=== PATIENT | female | born 1930 | race Caucasian/White ===

== ENCOUNTER 2018-03-10 18:48 | Inpatient (IN) | payer MEDICARE ==
[~2018-03-10 18:48] MED LIST: ISOVUE-370 76%-LOCM 1 ML ONE
[2018-03-10 19:18] LABS: #Basophils 0.1 thou/uL (0.0-0.2); #Eosinphils 0.2 thou/uL (0.0-0.7); #Lymphocytes 2.4 thou/uL (1.20-3.40); #Monocytes 0.7 thou/uL (0.11-0.59); #Neutrophils 4.9 thou/uL (1.40-6.50); %Basophils 0.9 % (0.0-1.0); %Lymphocytes 28.7 % (21.0-51.0); %Monocytes 8.7 % (0.0-10.0); %Neutrophils 59.7 % (42.0-75.0); Mean Corpuscular HGB CONC 32.3 g/dL (32.0-36.0); Mean Corpuscular Hemoglobin 29.3 pg (27.0-31.0); Mean Corpuscular Volume 90.6 fL (78.0-98.0); Mean Platelet Volume 8.4 fL (7.4-10.4); Platelet Count 261 thou/uL (130-400); RBC Distribution Width 12.9 % (11.5-14.5); Red Blood Cell (RBC) Count 4.11 mill/uL (4.20-5.40); White Blood Cell (WBC) Count 8.2 thou/uL (4.8-10.8)
[2018-03-10 19:31] LABS: Prothrombin Time 13.7 SEC (12.0-14.7)
[2018-03-10 19:35] LABS: ALT (SGPT) 10 U/L (8-55); AST (SGOT) 15 U/L (5-34); Albumin 4.1 g/dL (3.4-4.8); Alkaline Phosphatase 123 U/L (40-150); Anion Gap 12 mmol/L (10-20); BUN (Urea Nitrogen) 23 mg/dL (9.8-20.1); Bilirubin, Total 0.3 mg/dL (0.2-1.2); Calc. Creatinine Clearance 0 mL/min (70-130); Calcium 9.4 mg/dL (7.8-10.44); Carbon Dioxide 30 mmol/L (23-31); Chloride 104 mmol/L (98-107); Estimated GFR-MDRD 27; Globulin 3.3 g/dL (2.4-3.5); Glucose 82 mg/dL (83-110); Lipase 6 U/L (8-78); Protein, Total 7.4 g/dL (6.0-8.3); Sodium 142 mmol/L (136-145)
[2018-03-10 19:39] LABS: CKMB 2.7 ng/mL (0-6.6); Troponin I 0.019 ng/mL (< 0.028)
[2018-03-10 19:41] LABS: CK (CPK) 60 U/L (29-168)
--- NOTE | 2018-03-10 19:59 | CT ---
CT BRAIN WITHOUT CONTRAST: HISTORY: Left-sided weakness and tingling. Last seen normal at 10:00 a.m. COMPARISON: None. FINDINGS: Old right GEOPHYSICAL E LOGGER territory infarction. No acute hemorrhage or infarction. The calcified meningioma is unchanged. No midline shift or mass effect. Dense calcifications of the cavernous carotid arteries. IMPRESSION: Unchanged examination from 2014. No acute intracranial abnormality. CODE CARMITA SAAVEDRA AT 7:17 P.M. POS: BRIANNA
--- NOTE | 2018-03-10 20:30 | CT ---
CTA HEAD WITH IV CONTRAST AND 3D POST PROCESSING: HISTORY: Left-sided weakness. Tingling in the left hand. FINDINGS: Atherosclerotic plaque is seen in the vertebrobasilar and carotid artery systems no either side. A d ominant left vertebral artery is present. No evidence of major branch occlusion, significant stenosi s, or aneurysm formation is seen. There is an old infarction in the right NETWORK CONTROL OPERATOR territory and a meningioma close to the vertex. IMPRESSION: 1. No CT evidence of acute vascular abnormality. 2. No significant interval change is seen in the CTA of the head since 02/09/2014. Discussed over the telephone with the ER physician, Dr. Víctor Kwan, at 8:00 p.m. CODE CARMITA POS: MZA
--- NOTE | 2018-03-10 20:32 | CT ---
CTA NECK WITH IV CONTRAST AND 3D POST PROCESSING: HISTORY: Left-sided weakness. Tingling in the left hand. FINDINGS: Atherosclerotic plaque is seen in the vertebrobasilar and carotid artery systems no either side. A d ominant left vertebral artery is present. No evidence of major branch occlusion, significant stenosi s, or aneurysm formation is seen. There is an old infarction in the right HOME ADVISOR territory and a meningioma close to the vertex. IMPRESSION: 1. No CT evidence of acute vascular abnormality. 2. No significant interval change is seen in the CTA of the head since 02/09/2014. Discussed over the telephone with the ER physician, Dr. Víctor Kwan, at 8:00 p.m. CODE CARMITA POS: MZA
[2018-03-10 20:40] LABS: Bilirubin Negative (Negative); Blood, Urine Negative (Negative); Clarity CLOUDY (Clear); Glucose, Urine (Dipstick) 100 mg/dL (Negative); Leukocyte Large (Negative); Nitrite Positive (Negative); Protein, Urine (Dipstick) 100 mg/dL (Neg-Trace); Specific Gravity, Urine 1.017 (1.002-1.036); Urobilinogen 0.2 mg/dL (0.2-1.0)
--- NOTE | 2018-03-10 20:40 | RAD ---
CHEST ONE VIEW: HISTORY: Chest pain and left hand tingling. COMPARISON: Chest radiograph from 12/24/2016. FINDINGS: The lungs are without focal air space consolidation, pneumothorax, or effusion. There is scarring in the lung bases. Moderate degenerative changes in both glenohumeral joints. Multiple median sternotomy wires are in t he midline. IMPRESSION: Mild cardiomegaly. No acute intrathoracic abnormality. POS: ROGELIO
[2018-03-10 20:42] LABS: Bacteria/HPF Rare-Few HPF (None Seen); Hyaline Casts/LPF 0-3 HYALINE CAST LPF (0-3 Hyaline); RBC/HPF 0-3 HPF (0-3); Squamous Epithelial None Seen HPF (0-3)
[2018-03-10] MEDS ORDERED: cefTRIAXone\\ROCEPHIN 2 GM VIAL ONE (21:37)
[2018-03-11 00:26] VITALS: BMI 27.3
[2018-03-11] MEDS ORDERED: Ondansetron ODT 4 MG TAB SL PRN (00:37)
[2018-03-11] MEDS ORDERED: Ondansetron HCl/PF 4 MG/2 ML Vial IVP PRN ×2 (00:37→08:54)
[2018-03-11] MEDS ORDERED: Acetaminophen 325 MG TAB PO PRN ×2 (00:37→08:53)
[2018-03-11] MEDS ORDERED: Bisacodyl 5 MG TAB PO PRN (08:54)
[2018-03-11] MEDS ORDERED: Loratadine 10 MG TAB PO PRN (08:54)
[2018-03-11] MEDS ORDERED: Senokot 8.6 MG TAB PO PRN (08:54)
[2018-03-11] MEDS ORDERED: Dextrose 50% Abboject 50 ML SYRINGE SLOW IVP PRN (08:54)
[2018-03-11] MEDS ORDERED: Calcium Carbonate 500 MG ChewTAB PO PRN (08:54)
[2018-03-11] MEDS ORDERED: Benzonatate 100 MG CAP PO PRN (08:54)
[2018-03-11] MEDS ORDERED: Nitroglycerin 0.4 MG TAB (25 Tab Bottle) SL PRN (08:54)
[2018-03-11] MEDS ORDERED: HumaLOG 300 UNITS/3 ML VIAL SC PRN (08:54)
[2018-03-11] MEDS ORDERED: Mag-Al 1200 mg/1200 mg/30 ML UDCUP PO PRN (08:54)
[2018-03-11] MEDS ORDERED: Diabetic Tussin 200 MG/10 ML UDCUP PO PRN (08:54)
[2018-03-11] MEDS ORDERED: Dextrose 5% in Water 1,000 ML IV PRN (08:54)
[2018-03-11] MEDS ORDERED: Aspirin 81 mg Enteric Coated Tablet PO SCH (09:00)
[2018-03-11] MEDS ORDERED: Lorazepam 2 MG/ML VIAL ONE (10:36)
[2018-03-11] MEDS ORDERED: Lorazepam 2 MG/ML VIAL SLOW IVP SCH (10:45)
[2018-03-11] MEDS ORDERED: Aspirin 325 MG TAB ONE (10:48)
[2018-03-11] MEDS: Aspirin 325 mg Enteric Coated Tablet PO SCH (10:49)
[2018-03-11] MEDS: HumaLOG 300 UNITS/3 ML VIAL SC PRN ×2 (12:19→16:51)
--- NOTE | 2018-03-11 12:48 | MRI ---
BRAIN MRI NONCONTRAST: COMPARISON: Head CT 03/10/18, 02/20/14 brain MRI. CLINICAL HISTORY: Left side weakness, paresthesias, TIA. FINDINGS: Redemonstration of right occipital encephalomalacia with ex vacuo dilatation of ventricular system. There is parenchymal atrophy. There is no acute intracranial hemorrhagic susceptibility. A prominen t degree of gliosis is seen adjacent cavitary encephalomalacia of the posterior right cerebral hemisp here. There is mild chronic microvascular ischemic disease. No acute territorial infarction. Exam is markedly degraded by patient motion. As was previously mentioned, although some distorted by the degree of patient motion on the current e xam and limited without IV enhancement, there is redemonstration of extraaxial mass along the left as pect of the interhemispheric falx at the level of the vertex, with AP diameter measuring approximatel y 2.5 cm, grossly stable, indicating meningioma. IMPRESSION: 1. Chronic intracranial findings, without acute infarction or mass effect. 2. Stable extraaxial mass along the superior aspect of the interhemispheric falx, favoring meningiom a. POS: BRIANNA
--- NOTE | 2018-03-11 13:17 | HP ---
PRIMARY CARE PHYSICIAN: Ly Kelley CHIEF COMPLAINT: Left arm pain and burning and not feeling well. HISTORY OF PRESENT ILLNESS: Ms. Cabrera is an 87-year-old female with past medical history of diabete s mellitus type 1, hypertension, dyslipidemia, history of stroke in 2013 and coronary artery disease status post CABG many years ago, who presented to the emergency room with the above-mentioned complai nt. History is mainly obtained by the patient herself and electronic medical records have been revie wed. Ms. Cabrera reports that she has been in her usual health up until now. She normally is able to take care of herself and ambulates with the help of a walker. Yesterday all of a sudden she started to no sandrita that she was having significant amount of pain, burning in her left arm and left hand. She did not notice any swelling or any skin color changes. She did not have any chest pain with that, but sh ortiz was "feeling funny" and had shortness of breath with that. She was not able to make a fist because of the pain. She denies similar episodes in the past. She denies similar feeling in her legs. She denies any recent illnesses. She denies any orthopnea or PND. She denies any changes in her vision or speech. When she was brought into the emergency room, her blood pressure was 160/103 with a pulse of 90. She was saturating 97% on room air. Given the history of left arm pain she actually underwent a stroke workup in the emergency room including a CT head as well as a CT angiogram of the head and neck. Bot h were unremarkable. According to the neurological examination per the ER physician she was noticed to have some sensory deficits to the left arm and left hand, otherwise unremarkable neurological exam . EKG showed complete right bundle branch block, but no evidence to suggest ACS. She was also found to have evidence of significant urinary tract infection and renal failure with creatinine of 1.76. She does report that she has been having some abdominal pain for the last few days and has been notic ing burning of the urine. She otherwise has a good appetite and denies any nausea, vomiting or diarr hea. She is somewhat constipated. She is now being admitted for further workup and rule out stroke. PAST MEDICAL HISTORY: 1. Hypertension. 2. Dyslipidemia. 3. History of coronary artery disease status post CABG many years ago. 4. Diabetes mellitus type 1. PAST SURGICAL HISTORY: 1. CABG. 2. Cholecystectomy. ALLERGIES: MORPHINE. SOCIAL HISTORY: She lives with her daughter who is the primary care provider. No history of drug, t obacco or alcohol abuse. FAMILY HISTORY: She denies any family members having any significant heart attack or strokes in the past. MEDICATIONS: Insulin, NovoLog 70/30 15 units b.i.d., Tylenol with codeine #3 as needed, isosorbide m ononitrate 30 mg daily, diltiazem 300 mg daily, aspirin 81 mg daily, hydralazine 25 mg p.o. daily, se rtraline 100 mg daily, and lisinopril 20 mg p.o. b.i.d. REVIEW OF SYSTEMS: A 12-point review of systems was done and is negative except for those mentioned in the history and physical. LABORATORY DATA: CBC is unremarkable. Serum chemistries showed BUN 23, creatinine 1.76 with estimat ed GFR of 27, blood sugar 82 and then 209. Cardiac enzymes are normal. Lipase 6. Urinalysis with l arge leukocyte esterase, WBCs, positive nitrites as well as proteinuria and glucosuria. CT head by my review has no evidence to suggest any acute infarction, hemorrhage or mass effect. CT angio was negative for any significant stenosis. Chest x-ray by my review has no evidence to suggest pleural effusion, edema or infiltrate. Twelve lead EKG by my review shows normal sinus rhythm with right complete bundle branch block. PHYSICAL EXAMINATION: VITAL SIGNS: Most recent vital signs; temperature 97.9, pulse of 58, respirations 16, saturating 96% on room air, blood pressure 156/72. GENERAL: No acute distress, awake, alert, oriented x3. She appears frail, but her stated age. She does appear quite filthy. HEENT: Mucous membrane is moist and pink. No oropharyngeal exudate or erythema. Head is normocepha lic, atraumatic. Pupils equal, reactive to light and accommodation. Extraocular movement intact. NECK: Supple without any lymphadenopathy, JVD or bruit. CHEST: Clear to auscultation without any wheezing, rales or rhonchi. CARDIOVASCULAR: Rhythm is regular without any murmur, rubs or gallops. ABDOMEN: Soft, nondistended. No guarding, rebound or rigidity. She is mildly tender to palpation i n the central area where she has a chronic hernia. EXTREMITIES: Show no limitation of the range of the movement of the left hand. She has intact sensa tion. Jzrtob-sw-gacs testing is intact. Bilateral lower extremities shows significant pitting edema at least +2 with chronic edematous changes in the right lower extremity. NEURO: Neurological examination is rather unremarkable. SKIN: Free of any rashes or bruises. Feels warm and dry to touch. PSYCHIATRIC: Normal affect. IMPRESSION AND PLAN: 1. Left arm pain. The patient's symptoms are more of the pain rather than the paresthesias and soun ds like neuropathic pain. Given her extensive history of coronary artery disease, stroke; however, w ill be ruled out. We will obtain a MRI of the head and carotid Doppler ultrasound. Her first set of cardiac enzymes was negative and we will repeat the cardiac enzymes again and as above once again. At this time, the suspicion of ACS is rather low. She will be started on full dose aspirin and we wi ll add statin until either of these are ruled out. We will also try to maintain her blood pressure a t a higher than average level to maintain cerebral perfusion pressure. 2. Urinary tract infection. Urine culture and blood cultures have been obtained. No evidence of se psis at this time. She has gotten empiric antibiotics in the emergency room. We will continue that for now. 3. Acute renal insufficiency. The patient will be monitored and we will avoid any nephrotoxic medic ations. If her cardiac evaluation including the echocardiogram does not show any evidence of congest nicanor heart failure and if the renal function does not improve with conservative management we will sta rt her on IV fluids. 4. Lower extremity edema. We will rule out deep venous thrombosis with lower extremity Doppler ultr asound. 5. Hypertension. Resume home medications selectively. We will hold her hydrochlorothiazide and lis inopril to avoid renal toxicity. 6. Diabetes mellitus type 1. We will put her on insulin sliding scale and resume her 70/30 as well. Accu-Cheks a.c. and at bedtime. 7. Code status: FULL CODE. Discussed with the patient in detail. 8. Deep venous thrombosis and gastrointestinal prophylaxis and p.r.n. medication orders. DISPOSITION: Ms. Cabrera is currently admitted to the hospital to rule out CVA and ACS. Estimated le ngth of stay is at least 2-3 midnight given the presence of urinary tract infection and acute renal i nsufficiency as well. Further management will depend upon her clinical course.
[2018-03-11 14:53] LABS: Troponin I 0.028 ng/mL (< 0.028)
[2018-03-11] MEDS: Sodium Chloride 0.9% 1,000 ML IV SCH (16:13)
--- NOTE | 2018-03-11 16:13 | ULT ---
VENOUS DUPLEX SONOGRAM BILATERAL LOWER EXTREMITY: History: Bilateral leg pain and edema. FINDINGS: Minimal spectral and doppler flow are present within each common femoral vein. Clot is present within each common femoral vein and greater saphenous junction as well as femoral, deep, popliteal, and pos terior tibial vein. There is decreased flow throughout. IMPRESSION: Extensive nonocclusive thrombus throughout the deep venous structures of each lower extremity. Findings were discussed with Dr. Rivera at 1555 hours. Code CR POS: BRIANNA
[2018-03-11] MEDS ORDERED: cefTRIAXone\\ROCEPHIN 1 GM in Sodium Chloride 0.9% 100 ML IVPB SCH (21:00)
[2018-03-11] MEDS: Famotidine 20 MG TAB PO SCH (21:48)
[2018-03-11] MEDS: Atorvastatin Calcium 20 MG TAB PO SCH (21:48)
[2018-03-11] MEDS: Enoxaparin Sodium 80 MG/0.8 ML SYRINGE SC SCH (21:55)
[2018-03-11] MEDS: Insulin NPH/Reg Insulin Hm 300 UNITS/3 ML VIAL SC SCH (22:18)
[2018-03-11] MEDS: hydrALAZINE 20 MG/ML VIAL SLOW IVP PRN (23:36)
[2018-03-12] MEDS: Acetaminophen 325 MG TAB PO PRN ×3 (05:32→21:53)
[2018-03-12 06:02] LABS: #Basophils 0.1 thou/uL (0.0-0.2); #Eosinphils 0.2 thou/uL (0.0-0.7); #Lymphocytes 2.3 thou/uL (1.20-3.40); #Monocytes 0.5 thou/uL (0.11-0.59); #Neutrophils 2.9 thou/uL (1.40-6.50); %Basophils 1.1 % (0.0-1.0); %Eosinophils 3.1 % (0.0-10.0); %Lymphocytes 38.5 % (21.0-51.0); %Monocytes 8.9 % (0.0-10.0); %Neutrophils 48.3 % (42.0-75.0); Hemoglobin 11.5 g/dL (12.0-16.0); Mean Corpuscular HGB CONC 32.9 g/dL (32.0-36.0); Mean Corpuscular Hemoglobin 29.6 pg (27.0-31.0); Mean Platelet Volume 8.3 fL (7.4-10.4); Platelet Count 221 thou/uL (130-400); RBC Distribution Width 12.9 % (11.5-14.5); Red Blood Cell (RBC) Count 3.87 mill/uL (4.20-5.40); White Blood Cell (WBC) Count 6.1 thou/uL (4.8-10.8)
[2018-03-12 06:32] LABS: Anion Gap 10 mmol/L (10-20); BUN (Urea Nitrogen) 19 mg/dL (9.8-20.1); Calc. Creatinine Clearance 37 mL/min (70-130); Calcium 8.9 mg/dL (7.8-10.44); Carbon Dioxide 29 mmol/L (23-31); Chloride 107 mmol/L (98-107); Estimated GFR-MDRD 42; Sodium 142 mmol/L (136-145)
[2018-03-12 06:33] LABS: Cardiac Risk 3.1 (Less than 4.5)
[2018-03-12 06:35] LABS: Glucose 54 mg/dL (83-110)
[2018-03-12] MEDS ORDERED: Enoxaparin Sodium 30 MG/0.3 ML SYRINGE SC SCH (09:00)
[2018-03-12] MEDS: Aspirin 325 mg Enteric Coated Tablet PO SCH (09:40)
[2018-03-12] MEDS: Diltiazem HCl CD 300 mg Capsule PO SCH (09:41)
[2018-03-12] MEDS: Enoxaparin Sodium 80 MG/0.8 ML SYRINGE SC SCH (09:41)
[2018-03-12] MEDS: hydrALAZINE 25 MG TAB PO SCH ×3 (09:41→21:36)
[2018-03-12] MEDS: Lisinopril 20 MG TAB PO SCH ×2 (09:42→21:36)
[2018-03-12] MEDS: Sodium Chloride 0.9% 1,000 ML IV SCH (12:25)
--- NOTE | 2018-03-12 13:29 | ULT ---
VENOUS DOPPLER ULTRASOUND OF THE LEFT UPPER EXTREMITY: Date: 03/12/18 HISTORY: Left arm pain. TECHNIQUE: Tillman scale ultrasound with color flow and spectral Doppler imaging of the deep venous systems of the left upper extremity is performed. FINDINGS: There is good flow, compression, and spectral waveforms in the deep veins of the left upper extremity , including the internal jugular, subclavian, axillary, brachial, radial, ulnar, basilic, and cephali c veins. IMPRESSION: No evidence of deep venous thrombosis in the left upper extremity. POS: BRIANNA
[2018-03-12] MEDS: Insulin NPH/Reg Insulin Hm 300 UNITS/3 ML VIAL SC SCH ×2 (13:33→21:50)
--- NOTE | 2018-03-12 13:50 | PDOC.PN ---
- Subjective Encounter Start Date: 03/12/18 Encounter Start Time: 13:48 Subjective: feels a little better .left arm pain better but still there -: c/o vision loss but has it for 4 years. -: no abd pain/N/V/D.no CP/SOB - Objective Resuscitation Status: Resuscitation Status FULL:Full Resuscitation MAR Reviewed: Yes Vital Signs & Weight: Vital Signs (12 hours) Temp Pulse Pulse Pulse Resp BP BP 03/12/18 12:00 99 F 72 20 03/12/18 10:00 89 81 205/129 H 03/12/18 09:42 193/86 H 03/12/18 09:41 79 193/86 H 03/12/18 08:08 77 193/86 H 03/12/18 08:00 98.3 F 79 18 03/12/18 04:00 98.3 F 84 18 BP BP Pulse Ox 03/12/18 12:00 179/81 H 99 03/12/18 10:00 190/85 H 03/12/18 09:42 03/12/18 09:41 03/12/18 08:08 03/12/18 08:00 178/80 H 99 03/12/18 04:00 173/76 H 99 Weight Admit Weight 154 lb 3 oz Weight 154 lb 3 oz Result Diagrams: 03/12/18 05:01 03/12/18 05:01 Additional Labs: Accuchecks 03/12/18 03/12/18 03/11/18 06:55 05:40 23:26 POC Glucose 79 71 234 H 03/11/18 03/11/18 03/11/18 20:30 16:45 12:12 POC Glucose 291 H 183 H 290 H Microbiology 03/10/18 20:32 Urine Straight Catheter Urine Culture - Preliminary Escherichia coli 03/10/18 20:17 Venous blood - Left Arm Blood Culture - Preliminary Specimen has been received and culture in progress. No Growth to date. 03/10/18 20:17 Venous blood - Left Arm Blood Culture - Preliminary NO GROWTH AT 48 HOURS 03/10/18 19:04 Venous blood - Right Arm Blood Culture - Preliminary Specimen has been received and culture in progress. No Growth to date. 03/10/18 19:04 Venous blood - Right Arm Blood Culture - Preliminary NO GROWTH AT 48 HOURS Laboratory Tests 12/10/16 12/14/16 03/10/18 13:09 14:08 19:04 Creatinine 1.08 1.25 H 1.76 H 03/12/18 05:01 Creatinine 1.21 H labs reviewed Radiology Reviewed by me: Yes (Doppler L UE-no DVT) Phys Exam - Physical Examination Constitutional: NAD blind HEENT: PERRLA, moist MMs, sclera anicteric, oral pharynx no lesions Neck: no nodes, no JVD, supple, full ROM Respiratory: no wheezing, no rales, no rhonchi, clear to auscultation bilateral Cardiovascular: RRR, no significant murmur, no rub Gastrointestinal: soft, non-tender, no distention, positive bowel sounds Musculoskeletal: pulses present, edema present (b/l legs) Neurological: non-focal, normal sensation, moves all 4 limbs Psychiatric: normal affect, A&O x 3 Skin: no rash Dx/Plan (1) DVT of lower extremity, bilateral Code(s): I82.403 - ACUTE EMBOLISM AND THOMBOS UNSP DEEP VEINS OF LOW EXTRM, BI Status: Acute Qualifiers: Chronicity: acute (2) UTI (urinary tract infection) Status: Acute (3) HEATHER (acute kidney injury) Code(s): N17.9 - ACUTE KIDNEY FAILURE, UNSPECIFIED Status: Acute (4) Left arm pain Code(s): M79.602 - PAIN IN LEFT ARM Status: Acute (5) Hypertension, uncontrolled Code(s): I10 - ESSENTIAL (PRIMARY) HYPERTENSION Status: Acute (6) Muscular deconditioning Code(s): R29.898 - OTH SYMPTOMS AND SIGNS INVOLVING THE MUSCULOSKELETAL SYSTEM Status: Acute (7) Vision loss Code(s): H54.7 - UNSPECIFIED VISUAL LOSS Status: Acute (8) Meningioma Code(s): D32.9 - BENIGN NEOPLASM OF MENINGES, UNSPECIFIED Status: Chronic Comment: Stable since 2013 (9) CAD (coronary artery disease) Code(s): I25.10 - ATHSCL HEART DISEASE OF [place] CORONARY ARTERY W/O ANG PCTRS Status: Chronic (10) DM type 1 (diabetes mellitus, type 1) Status: Chronic Comment: Cont ISS and Home insulin.Accuchecks achs (11) HLD (hyperlipidemia) Code(s): E78.5 - HYPERLIPIDEMIA, UNSPECIFIED Status: Acute - Plan continue antibiotics, PT/OT, respiratory therapy, incentive spirometry, out of bed/ambulate, DVT proph w/SCDs change ABx to levaquin which has better sensitivity profile for e.coli -: Renal Fx improving. cont to monitor. gentle IVF -: Change Lovenox to eliquis.risk/benefits discussed w pt in detail.agreeable -: BP uncontrolled-restart Home meds as CVA ruled out -: rehab eval. * . Review of Systems - Review of Systems Constitutional: weakness. negative: fever, chills, sweats, malaise, other Respiratory: negative: Cough, Dry, Shortness of Breath, Hemoptysis, SOB with Excertion, Pleuritic Pain, Sputum, Wheezing Cardiovascular: negative: chest pain, palpitations, orthopnea, paroxysmal nocturnal dyspnea, edema, light headedness, other Gastrointestinal: negative: Nausea, Vomiting, Abdominal Pain, Diarrhea, Constipation, Melena, Hematochezia, Other Genitourinary: negative: Dysuria, Frequency, Incontinence, Hematuria, Retention , Other Musculoskeletal: Hand Pain. negative: Neck Pain, Shoulder Pain, Arm Pain, Back Pain, Leg Pain, Foot Pain, Other Neurological: negative: Weakness, Numbness, Incoordination, Change in Speech, Confusion, Seizures, Other - Medications/Allergies Allergies/Adverse Reactions: Allergies Allergy/AdvReac Type Severity Reaction Status Date / Time morphine Allergy Verified 03/11/18 00:42 Medications: Current Medications Acetaminophen (Tylenol) 650 mg PO Q6H PRN PRN Reason: Fever > 101 Acetaminophen (Tylenol) 650 mg PO Q4H PRN PRN Reason: Headache/Fever or Pain Last Admin: 03/12/18 12:24 Dose: 650 mg Al Hydroxide/Mg Hydroxide (Maalox) 30 ml PO Q6H PRN PRN Reason: Heartburn or Indigestion Apixaban (Eliquis) 5 mg PO BID [facility] Aspirin (Ecotrin) 325 mg PO DAILY [facility] Last Admin: 03/12/18 09:40 Dose: 325 mg Atorvastatin Calcium (Lipitor) 20 mg PO HS [facility] Last Admin: 03/11/18 21:48 Dose: 20 mg Benzonatate (Tessalon) 100 mg PO Q4H PRN PRN Reason: Cough Bisacodyl (Dulcolax) 10 mg PO DAILYPRN PRN PRN Reason: Constipation Calcium Carbonate (Tums) 1,000 mg PO Q4H PRN PRN Reason: Heartburn or Indigestion Dextrose/Water (Dextrose 50%) 25 gm SLOW IVP PRN PRN PRN Reason: Hypoglycemia Diltiazem HCl (Cardizem Cd) 300 mg PO DAILY [facility] Last Admin: 03/12/18 09:41 Dose: 300 mg Famotidine (Pepcid) 20 mg PO 2100 [facility] Last Admin: 03/11/18 21:48 Dose: 20 mg Glucagon (Glucagon) 1 mg IM PRN PRN PRN Reason: Hypoglycemia Guaifenesin (Robitussin Sf) 200 mg PO Q4H PRN PRN Reason: Cough Hydralazine HCl (Apresoline) 10 mg SLOW IVP Q4H PRN PRN Reason: Systolic BP > 180 Last Admin: 03/11/18 23:36 Dose: 10 mg Hydralazine HCl (Apresoline) 25 mg PO TID [facility] Last Admin: 03/12/18 09:41 Dose: 25 mg Dextrose/Water (D5w) 1,000 mls @ 0 mls/hr IV .Q0M PRN; As Directed PRN Reason: Hypoglycemia Sodium Chloride (Normal Saline 0.9%) 1,000 mls @ 50 mls/hr IV .Q20H [facility] Last Admin: 03/12/18 12:25 Dose: 1,000 mls Levofloxacin 500 mg/ Device 100 mls @ 100 mls/hr IVPB Q24HR [facility] Insulin Human Isoph/Insulin Regular (Humulin 70/30) 15 units SC BID [facility] Last Admin: 03/12/18 13:33 Dose: 15 units Insulin Human Lispro (Humalog) 0 units SC .MODERATE SLIDING SC PRN PRN Reason: Moderate Correctional Scale Last Admin: 03/11/18 16:51 Dose: 2 units Insulin Human Lispro (Humalog) 0 units SC .BEDTIME SLIDING SC PRN PRN Reason: Bedtime Correctional Scale Last Admin: 03/12/18 01:07 Dose: 2 unit Isosorbide Mononitrate (Imdur Er) 30 mg PO DAILY [facility] Last Admin: 03/12/18 09:41 Dose: 30 mg Lisinopril (Zestril) 20 mg PO BID [facility] Last Admin: 03/12/18 09:42 Dose: 20 mg Loratadine (Claritin) 10 mg PO DAILYPRN PRN PRN Reason: Sinus Symptoms Nitroglycerin (Nitrostat) 0.4 mg SL Q5MIN PRN PRN Reason: Chest Pain Ondansetron HCl (Zofran) 4 mg IVP Q6H PRN PRN Reason: Nausea/Vomiting Senna (Senokot) 2 tab PO HSPRN PRN PRN Reason: Constipation Sertraline HCl (Zoloft) 100 mg PO DAILY [facility] Last Admin: 03/12/18 09:42 Dose: 100 mg Sodium Chloride (Flush - Normal Saline) 10 ml IVF Q12HR [facility] Last Admin: 03/12/18 09:42 Dose: 10 ml Sodium Chloride (Flush - Normal Saline) 10 ml IVF PRN PRN PRN Reason: Saline Flush
[2018-03-12] MEDS: traMADol HCl 50 MG TAB PO PRN (14:36)
[2018-03-12] MEDS: Famotidine 20 MG TAB PO SCH (21:37)
[2018-03-12] MEDS: Apixaban 5 MG TAB PO SCH (21:37)
[2018-03-12] MEDS: Atorvastatin Calcium 20 MG TAB PO SCH (21:37)
[2018-03-13 05:17] LABS: Hemoglobin 10.3 g/dL (12.0-16.0)
[2018-03-13 05:37] LABS: Anion Gap 10 mmol/L (10-20); BUN (Urea Nitrogen) 17 mg/dL (9.8-20.1); Calc. Creatinine Clearance 37 mL/min (70-130); Calcium 8.5 mg/dL (7.8-10.44); Carbon Dioxide 28 mmol/L (23-31); Chloride 106 mmol/L (98-107); Estimated GFR-MDRD 42; Glucose 111 mg/dL (83-110); Potassium 4.4 mmol/L (3.5-5.1); Sodium 140 mmol/L (136-145)
[2018-03-13] MEDS: Aspirin 81 mg Enteric Coated Tablet PO SCH (09:06)
[2018-03-13] MEDS: Apixaban 5 MG TAB PO SCH ×2 (09:06→22:24)
[2018-03-13] MEDS: Diltiazem HCl CD 300 mg Capsule PO SCH (09:07)
[2018-03-13] MEDS: hydrALAZINE 25 MG TAB PO SCH ×3 (09:08→22:23)
[2018-03-13] MEDS: Lisinopril 20 MG TAB PO SCH ×2 (09:09→22:23)
[2018-03-13] MEDS: traMADol HCl 50 MG TAB PO PRN (09:10)
[2018-03-13] MEDS: Sodium Chloride 0.9% 1,000 ML IV SCH (09:12)
[2018-03-13] MEDS: Insulin NPH/Reg Insulin Hm 300 UNITS/3 ML VIAL SC SCH (14:12)
--- NOTE | 2018-03-13 14:19 | PDOC.PN ---
- Subjective Encounter Start Date: 03/13/18 Encounter Start Time: 14:18 Subjective: feels much better. says that her legs hurt.swelling better -: denies any CP/SOB - Objective Resuscitation Status: Resuscitation Status FULL:Full Resuscitation MAR Reviewed: Yes Vital Signs & Weight: Vital Signs (12 hours) Temp Pulse Resp BP BP BP Pulse Ox 03/13/18 11:06 187/76 H 03/13/18 09:09 165/72 H 03/13/18 09:08 67 165/72 H 03/13/18 09:07 67 165/72 H 03/13/18 08:00 98.9 F 67 16 165/72 H 97 03/13/18 04:03 98.2 F 65 16 169/74 H 97 Weight Admit Weight 154 lb 3 oz Weight 154 lb 3 oz Result Diagrams: 03/13/18 04:47 03/13/18 04:47 Additional Labs: Accuchecks 03/13/18 03/13/18 03/12/18 11:14 04:08 21:44 POC Glucose 219 H 109 126 H 03/12/18 03/12/18 16:38 13:02 POC Glucose 208 H 235 H Laboratory Tests 03/10/18 03/12/18 03/13/18 19:04 05:01 04:47 Creatinine 1.76 H 1.21 H 1.22 H labs reviewed Phys Exam - Physical Examination Constitutional: NAD HEENT: PERRLA, moist MMs, sclera anicteric, oral pharynx no lesions Neck: no nodes, no JVD, supple, full ROM Respiratory: no wheezing, no rales, no rhonchi, clear to auscultation bilateral Cardiovascular: RRR, no significant murmur, no rub Gastrointestinal: soft, non-tender, no distention, positive bowel sounds Musculoskeletal: no edema, pulses present Neurological: non-focal, normal sensation, moves all 4 limbs chronic blindness Psychiatric: normal affect, A&O x 3 Skin: no rash Dx/Plan (1) DVT of lower extremity, bilateral Code(s): I82.403 - ACUTE EMBOLISM AND THOMBOS UNSP DEEP VEINS OF LOW EXTRM, BI Status: Acute Qualifiers: Chronicity: acute (2) UTI (urinary tract infection) Status: Acute (3) HEATHER (acute kidney injury) Code(s): N17.9 - ACUTE KIDNEY FAILURE, UNSPECIFIED Status: Acute Comment: improving (4) Left arm pain Code(s): M79.602 - PAIN IN LEFT ARM Status: Resolved (5) Hypertension, uncontrolled Code(s): I10 - ESSENTIAL (PRIMARY) HYPERTENSION Status: Resolved (6) Muscular deconditioning Code(s): R29.898 - OTH SYMPTOMS AND SIGNS INVOLVING THE MUSCULOSKELETAL SYSTEM Status: Acute (7) Vision loss Code(s): H54.7 - UNSPECIFIED VISUAL LOSS Status: Acute (8) Meningioma Code(s): D32.9 - BENIGN NEOPLASM OF MENINGES, UNSPECIFIED Status: Chronic Comment: Stable since 2013 (9) CAD (coronary artery disease) Code(s): I25.10 - ATHSCL HEART DISEASE OF [place] CORONARY ARTERY W/O ANG PCTRS Status: Chronic (10) DM type 1 (diabetes mellitus, type 1) Status: Chronic Comment: Cont ISS and Home insulin.Accuchecks achs (11) HLD (hyperlipidemia) Code(s): E78.5 - HYPERLIPIDEMIA, UNSPECIFIED Status: Acute - Plan continue antibiotics, PT/OT, respiratory therapy, incentive spirometry, out of bed/ambulate, DVT proph w/SCDs renal Fx improving.cont gentle IVF. -: cont levaquin .urine with E.Coli sensitive for Levaquin -: PO to DC to rehab when arranged. -: moniroe H/H.stable for now.cont Eliquis for DVT -: pt agreeable for snf use * . Review of Systems - Review of Systems Constitutional: negative: fever, chills, sweats, weakness, malaise, other ENT: negative: Ear Pain, Ear Discharge, Nose Pain, Nose Discharge, Nose Congestion, Mouth Pain, Mouth Swelling, Throat Pain, Throat Swelling, Other Respiratory: negative: Cough, Dry, Shortness of Breath, Hemoptysis, SOB with Excertion, Pleuritic Pain, Sputum, Wheezing Cardiovascular: negative: chest pain, palpitations, orthopnea, paroxysmal nocturnal dyspnea, edema, light headedness, other Gastrointestinal: negative: Nausea, Vomiting, Abdominal Pain, Diarrhea, Constipation, Melena, Hematochezia, Other Genitourinary: negative: Dysuria, Frequency, Incontinence, Hematuria, Retention , Other Musculoskeletal: negative: Neck Pain, Shoulder Pain, Arm Pain, Back Pain, Hand Pain, Leg Pain, Foot Pain, Other Skin: negative: Rash, Lesions, Philippe, Bruising, Other Neurological: negative: Weakness, Numbness, Incoordination, Change in Speech, Confusion, Seizures, Other - Medications/Allergies Allergies/Adverse Reactions: Allergies Allergy/AdvReac Type Severity Reaction Status Date / Time morphine Allergy Verified 03/11/18 00:42 Medications: Current Medications Acetaminophen (Tylenol) 650 mg PO Q6H PRN PRN Reason: Fever > 101 Acetaminophen (Tylenol) 650 mg PO Q4H PRN PRN Reason: Headache/Fever or Pain Last Admin: 03/12/18 21:53 Dose: 650 mg Al Hydroxide/Mg Hydroxide (Maalox) 30 ml PO Q6H PRN PRN Reason: Heartburn or Indigestion Apixaban (Eliquis) 5 mg PO BID [facility] Last Admin: 03/13/18 09:06 Dose: 5 mg Aspirin (Ecotrin) 81 mg PO DAILY [facility] Last Admin: 03/13/18 09:06 Dose: 81 mg Atorvastatin Calcium (Lipitor) 20 mg PO HS [facility] Last Admin: 03/12/18 21:37 Dose: 20 mg Benzonatate (Tessalon) 100 mg PO Q4H PRN PRN Reason: Cough Bisacodyl (Dulcolax) 10 mg PO DAILYPRN PRN PRN Reason: Constipation Calcium Carbonate (Tums) 1,000 mg PO Q4H PRN PRN Reason: Heartburn or Indigestion Dextrose/Water (Dextrose 50%) 25 gm SLOW IVP PRN PRN PRN Reason: Hypoglycemia Diltiazem HCl (Cardizem Cd) 300 mg PO DAILY [facility] Last Admin: 03/13/18 09:07 Dose: 300 mg Famotidine (Pepcid) 20 mg PO 2100 [facility] Last Admin: 03/12/18 21:37 Dose: 20 mg Glucagon (Glucagon) 1 mg IM PRN PRN PRN Reason: Hypoglycemia Guaifenesin (Robitussin Sf) 200 mg PO Q4H PRN PRN Reason: Cough Hydralazine HCl (Apresoline) 10 mg SLOW IVP Q4H PRN PRN Reason: Systolic BP > 180 Last Admin: 03/11/18 23:36 Dose: 10 mg Hydralazine HCl (Apresoline) 25 mg PO TID [facility] Last Admin: 03/13/18 09:08 Dose: 25 mg Dextrose/Water (D5w) 1,000 mls @ 0 mls/hr IV .Q0M PRN; As Directed PRN Reason: Hypoglycemia Sodium Chloride (Normal Saline 0.9%) 1,000 mls @ 50 mls/hr IV .Q20H [facility] Last Admin: 03/13/18 09:12 Dose: 1,000 mls Levofloxacin 500 mg/ Device 100 mls @ 100 mls/hr IVPB Q24HR [facility] Last Admin: 03/12/18 14:35 Dose: 100 mls Insulin Human Isoph/Insulin Regular (Humulin 70/30) 15 units SC BID [facility] Last Admin: 03/12/18 21:50 Dose: Not Given Insulin Human Lispro (Humalog) 0 units SC .MODERATE SLIDING SC PRN PRN Reason: Moderate Correctional Scale Last Admin: 03/11/18 16:51 Dose: 2 units Insulin Human Lispro (Humalog) 0 units SC .BEDTIME SLIDING SC PRN PRN Reason: Bedtime Correctional Scale Last Admin: 03/12/18 01:07 Dose: 2 unit Isosorbide Mononitrate (Imdur Er) 30 mg PO DAILY [facility] Last Admin: 03/13/18 09:08 Dose: 30 mg Lisinopril (Zestril) 20 mg PO BID [facility] Last Admin: 03/13/18 09:09 Dose: 20 mg Loratadine (Claritin) 10 mg PO DAILYPRN PRN PRN Reason: Sinus Symptoms Nitroglycerin (Nitrostat) 0.4 mg SL Q5MIN PRN PRN Reason: Chest Pain Ondansetron HCl (Zofran) 4 mg IVP Q6H PRN PRN Reason: Nausea/Vomiting Senna (Senokot) 2 tab PO HSPRN PRN PRN Reason: Constipation Sertraline HCl (Zoloft) 100 mg PO DAILY [facility] Last Admin: 03/13/18 09:09 Dose: 100 mg Sodium Chloride (Flush - Normal Saline) 10 ml IVF Q12HR [facility] Last Admin: 03/13/18 09:12 Dose: Not Given Sodium Chloride (Flush - Normal Saline) 10 ml IVF PRN PRN PRN Reason: Saline Flush Tramadol HCl (Ultram) 50 mg PO Q6H PRN PRN Reason: Pain Last Admin: 03/13/18 09:10 Dose: 50 mg
--- NOTE | 2018-03-13 14:43 | CT ---
CTA HEAD WITH IV CONTRAST AND 3D POST PROCESSING: CTA NECK WITH IV CONTRAST AND 3D POST PROCESSING: HISTORY: Left-sided weakness. Tingling in the left hand. FINDINGS: Atherosclerotic plaque is seen in the vertebrobasilar and carotid artery systems no either side. A d ominant left vertebral artery is present. No evidence of major branch occlusion, significant stenosi s, or aneurysm formation is seen. 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 IMPRESSION: 1. No CT evidence of acute vascular abnormality. 2. No significant interval change is seen in the CTA of the head since 02/09/2014. Discussed over the telephone with the ER physician, Dr. Víctor Kwan, at 8:00 p.m. REGULO VIZCARRA
[2018-03-13] MEDS: Atorvastatin Calcium 20 MG TAB PO SCH (22:23)
[2018-03-13] MEDS: Famotidine 20 MG TAB PO SCH (22:23)
[2018-03-14] MEDS: Insulin NPH/Reg Insulin Hm 300 UNITS/3 ML VIAL SC SCH ×2 (01:53→10:29)
[2018-03-14] MEDS: hydrALAZINE 20 MG/ML VIAL SLOW IVP PRN (04:23)
[2018-03-14] MEDS: Acetaminophen 325 MG TAB PO PRN (04:32)
[2018-03-14] MEDS: Sodium Chloride 0.9% 1,000 ML IV SCH (04:32)
[2018-03-14 05:12] LABS: Hemoglobin 11.2 g/dL (12.0-16.0)
[2018-03-14 05:32] LABS: Anion Gap 11 mmol/L (10-20); BUN (Urea Nitrogen) 19 mg/dL (9.8-20.1); Calc. Creatinine Clearance 33 mL/min (70-130); Calcium 9.2 mg/dL (7.8-10.44); Carbon Dioxide 27 mmol/L (23-31); Chloride 107 mmol/L (98-107); Estimated GFR-MDRD 38; Glucose 168 mg/dL (83-110); Potassium 4.4 mmol/L (3.5-5.1); Sodium 141 mmol/L (136-145)
[2018-03-14] MEDS: HumaLOG 300 UNITS/3 ML VIAL SC PRN (07:36)
[2018-03-14] MEDS ORDERED: hydrALAZINE 25 MG TAB PO SCH (09:00)
--- NOTE | 2018-03-14 09:49 | RAD ---
CHEST 1 VIEW: Date: 03/14/18 HISTORY: Pulmonary edema. COMPARISON: Radiograph dated 03/10/18. FINDINGS: Heart size upper limits of normal. No focal air space consolidation or pneumothorax. There is mild b lunting of right lateral costophrenic sulcus. Dense calcifications at transverse aorta. There is calcific tendinosis right rotator cuff. IMPRESSION: 1. Mild blunting bilateral costophrenic sulcus may reflect small effusion. 2. Cardiac silhouette upper limits of normal. POS: [facility]
[2018-03-14] MEDS: Lisinopril 20 MG TAB PO SCH (10:19)
[2018-03-14] MEDS: Apixaban 5 MG TAB PO SCH (10:19)
[2018-03-14] MEDS: Aspirin 81 mg Enteric Coated Tablet PO SCH (10:20)
[2018-03-14] MEDS: Diltiazem HCl CD 300 mg Capsule PO SCH (10:20)
[2018-03-14 11:32] VITALS: BP 166/72; TEMP 98.5
--- NOTE | 2018-03-15 02:33 | DIS ---
DATE OF ADMISSION: 03/11/2018 DATE OF DISCHARGE: 03/14/2018 PRIMARY CARE PHYSICIAN: Matt Obregon. DISCHARGE DISPOSITION: Rehabilitation at [facility]. DISCHARGE DIAGNOSES: 1. Lower extremity deep venous thrombosis, bilateral. 2. Urinary tract infection. 3. Acute kidney injury. 4. Left arm pain, likely arthritis. 5. Hypertension. 6. Muscle deconditioning. 7. Chronic blindness. 8. Chronic meningioma. 9. Coronary artery disease. 10. Diabetes mellitus, type 1. 11. Dyslipidemia. DISCHARGE MEDICATIONS: As follows: Eliquis 5 mg p.o. b.i.d., Lipitor 20 mg daily, Tessalon Perles a s needed, Tums as needed, levofloxacin 500 mg daily, loratadine as needed, Florastor 250 mg daily, hy dralazine 50 mg p.o. t.i.d., lisinopril 20 mg p.o. b.i.d., sertraline 100 mg daily, aspirin 81 mg yue ly, diltiazem 300 mg daily, isosorbide mononitrate 30 mg daily, Tylenol with codeine as needed, NovoL og 70/30 of 15 units b.i.d., Tylenol as needed. PROCEDURES DONE IN THE HOSPITAL: 1. CT angiogram of the head and neck upon presentation, which has no vascular abnormality. 2. CT scan of the brain, which is negative for any acute infarction or mass or hemorrhage. 3. MRI of the brain, which did not show any acute infarction. Chronic intracranial changes seen. 4. Lower extremity ultrasound, which is positive for bilateral extensive nonocclusive thrombus throu ghout the deep venous structures of each lower extremity and vascular ultrasound of the left arm whic h is negative for any DVT. 5. Transthoracic echocardiogram, which shows preserved EF of 60% to 65% and grade 2/3 diastolic dysf unction. 6. Chest x-ray prior to discharge, which is negative for any pulmonary edema. HISTORY OF PRESENTING ILLNESS: Ms. Cabrera is an 87-year-old female with past medical history of hype rtension and dyslipidemia as well as coronary artery disease and diabetes, [facility] of left arm pain and burning and not feeling well. Upon presentation, she was hemodynamically stable. A CT angiogram of the head and neck as well as CT of the brain and chest x-ray was done which was unremarkable. A 12-lead EKG was normal. Cardiac enzymes were normal. She was admitted for further evaluation and care. She was found to have a urinary tract infection for w hich she was started on empiric IV antibiotics. Please see admission history and physical for furthe r detail. HOSPITAL COURSE: The patient underwent a thorough workup as above and all of it was negative for CVA . Left arm ultrasound was also done after she was found to have lower extremity DVT bilaterally give n her swelling. She was started on anticoagulation initially with Lovenox and then transitioning to Eliquis after discussion with the patient. She understood the risk and benefit and chose to undergo full anticoagulation. She will need anticoagulation at least for 3-6 months. She was treated with I V antibiotics which were eventually changed to oral antibiotic based on the urine culture and sensiti vity. She had E. coli which was resistant to cefoxitin and ampicillin and intermediate sensitivity t o Rocephin. Discharge was discussed with her and she expressed desire to go to the rehab, which was arranged for her. She was hemodynamically stable and was discharged for rehabilitation earlier today. She was se en and examined prior to discharge. PHYSICAL EXAMINATION: VITAL SIGNS: This morning, temperature 98.5, pulse of 60, respirations 16, saturating 96% on room ai r, blood pressure 166/72. GENERAL: No acute distress, awake, alert, oriented x3. CHEST: Clear to auscultation without any wheezing, rales or rhonchi. CARDIOVASCULAR: Rhythm is regular without any murmur, rubs or gallops. LABORATORY DATA: Hemoglobin 11.2, hematocrit 34.3. Serum chemistries: Creatinine 1.34 with baselin e around 1.2, INR 1.0. Total time spent in the discharge 32 minutes.
== END 2018-03-14 14:13 | DRG 300 ==
LOC: ERS 18:48 → 2SE 21:35
PROVIDERS: ADMIT Internal Medicine; ATTEND Internal Medicine
DX: I82.413 Acute embolism and thrombosis of femoral vein, bilateral (principal); N39.0 Urinary tract infection, site not specified; N17.9 Acute kidney failure, unspecified; I82.433 Acute embolism and thrombosis of popliteal vein, bilateral; I82.443 Acute embolism and thrombosis of tibial vein, bilateral; E10.9 Type 1 diabetes mellitus without complications; Z79.4 Long term (current) use of insulin; E78.5 Hyperlipidemia, unspecified; I25.2 Old myocardial infarction; I25.10 Atherosclerotic heart disease of native coronary artery without angina pectoris; Z95.1 Presence of aortocoronary bypass graft; K59.00 Constipation, unspecified; I10 Essential (primary) hypertension; Z88.5 Allergy status to narcotic agent; H54.7 Unspecified visual loss; D32.9 Benign neoplasm of meninges, unspecified; B96.20 Unspecified Escherichia coli [E. coli] as the cause of diseases classified elsewhere; Z16.11 Resistance to penicillins; Z16.19 Resistance to other specified beta lactam antibiotics
CPT/HCPCS: 36415; 36416; 51701; 70450; 70496; 70498; 70551; 71045; 80048; 80053; 80061; 81003; 81015; 82553; 83690; 84484; 85014; 85018; 85025; 85610; 85730; 87040; 87077; 87086; 87186; 93005; 93306; 93970; 94760; 96365; A4216; A4353; G8978-GP-CL; G8979-GP-CJ; G8987-GO-CM; G8988-GO-CJ; G8996-GN-CH; G8997-GN-CH; J0360; J0696; J1650; J1956; J2060; J7050

== ENCOUNTER 2018-07-08 20:43 | Emergency (ER) | payer MEDICARE ==
[2018-07-08 21:18] LABS: #Basophils 0.1 thou/uL (0.0-0.2); #Eosinphils 0.2 thou/uL (0.0-0.7); #Lymphocytes 1.9 thou/uL (1.20-3.40); #Monocytes 0.7 thou/uL (0.11-0.59); #Neutrophils 4.1 thou/uL (1.40-6.50); %Basophils 0.8 % (0.0-1.0); %Eosinophils 2.2 % (0.0-10.0); %Lymphocytes 27.6 % (21.0-51.0); %Monocytes 10.6 % (0.0-10.0); %Neutrophils 58.8 % (42.0-75.0); Mean Corpuscular Hemoglobin 27.5 pg (27.0-31.0); Mean Corpuscular Volume 86.1 fL (78.0-98.0); Mean Platelet Volume 9.2 fL (7.4-10.4); Platelet Count 224 thou/uL (130-400); Red Blood Cell (RBC) Count 4.35 mill/uL (4.20-5.40)
[2018-07-08 21:36] LABS: ALT (SGPT) 13 U/L (8-55); AST (SGOT) 18 U/L (5-34); Albumin 4.1 g/dL (3.4-4.8); Alkaline Phosphatase 109 U/L (40-150); Anion Gap 15 mmol/L (10-20); BUN (Urea Nitrogen) 26 mg/dL (9.8-20.1); Bilirubin, Total 0.3 mg/dL (0.2-1.2); Calc. Creatinine Clearance 0 mL/min (70-130); Calcium 9.1 mg/dL (7.8-10.44); Carbon Dioxide 23 mmol/L (23-31); Chloride 101 mmol/L (98-107); Estimated GFR-MDRD 28; Globulin 3.6 g/dL (2.4-3.5); Glucose 239 mg/dL (83-110); Lipase 18 U/L (8-78); Potassium 4.6 mmol/L (3.5-5.1); Protein, Total 7.7 g/dL (6.0-8.3); Sodium 134 mmol/L (136-145)
[2018-07-08 21:39] LABS: CKMB 2.6 ng/mL (0-6.6); Troponin I Less than 0.010 ng/mL (< 0.028)
[2018-07-08 21:43] LABS: Bilirubin Negative (Negative); Blood, Urine Negative (Negative); Clarity TURBID (Clear); Glucose, Urine (Dipstick) Negative (Negative); Leukocyte Large (Negative); Nitrite Positive (Negative); Protein, Urine (Dipstick) 100 mg/dL (Neg-Trace); Specific Gravity, Urine 1.009 (1.002-1.036); Urobilinogen 0.2 mg/dL (0.2-1.0)
--- NOTE | 2018-07-08 21:44 | RAD ---
ONE VIEW CHEST 07/08/18 COMPARISON: 03/14/18. HISTORY: Dizziness. Shortness of breath. FINDINGS: There are sternotomy wires. There is atherosclerosis of the aorta. Normal cardiac silhouette. Pulmona ry vessels and hilum are normal. Costophrenic angles are clear. No masses or consolidation. No pneumo thorax or osseous abnormalities. IMPRESSION: Atherosclerosis. No acute cardiopulmonary process. POS: [facility]
[2018-07-08 21:45] LABS: Bacteria/HPF 3+ HPF (None Seen); Hyaline Casts/LPF 4-6 HYALINE CAST LPF (0-3 Hyaline); Pathc Cast-AUWi Flag 1.45 (0-2.49); RBC/HPF 0-3 HPF (0-3); Squamous Epithelial None Seen HPF (0-3)
[2018-07-08] MEDS ORDERED: cefTRIAXone\\ROCEPHIN 1 GM VIAL ONE (22:15)
[2018-07-08] MEDS ORDERED: Acetaminophen 325 MG TAB ONE (22:15)
[2018-07-08] MEDS ORDERED: Ondansetron PF 4 MG/2 ML Vial ONE (22:15)
== END 2018-07-08 23:43 | disposition home or self-care (01) ==
LOC: ERS 20:43
DX: N39.0 Urinary tract infection, site not specified (principal); I25.10 Atherosclerotic heart disease of native coronary artery without angina pectoris; E11.9 Type 2 diabetes mellitus without complications; I10 Essential (primary) hypertension; I25.2 Old myocardial infarction; Z86.73 Personal history of transient ischemic attack (TIA), and cerebral infarction without residual deficits; Z87.891 Personal history of nicotine dependence; Z86.718 Personal history of other venous thrombosis and embolism; Z79.4 Long term (current) use of insulin; Z79.899 Other long term (current) drug therapy
CPT/HCPCS: 51701; 71045; 80053; 81003; 81015; 82553; 83690; 84484; 85025; 87077; 87086; 87186; 93005; 94760; 96361; 96374; 96375; A4353; J0696; J2405

== ENCOUNTER 2018-10-30 16:17 | Inpatient (IN) | payer MEDICARE ==
--- NOTE | 2018-10-30 17:06 | RAD ---
FRONTAL VIEW CHEST: Date: 10/30/18 COMPARISON: 07/08/18. INDICATION: Altered mental status. FINDINGS: There is evidence of prior sternotomy. Lungs are clear. Lungs are hyperinflated. Vascular calcificati on seen. Chest otherwise similar. IMPRESSION: Postoperative chest, without evidence of COPD. POS: [facility]
[2018-10-30 17:10] LABS: #Eosinphils 0.1 thou/uL (0.0-0.7); #Lymphocytes 1.4 thou/uL (1.20-3.40); #Monocytes 0.8 thou/uL (0.11-0.59); #Neutrophils 13.3 thou/uL (1.40-6.50); %Basophils 0.2 % (0.0-1.0); %Eosinophils 0.7 % (0.0-10.0); %Monocytes 4.8 % (0.0-10.0); %Neutrophils 85.2 % (42.0-75.0); Hemoglobin 12.6 g/dL (12.0-16.0); Mean Corpuscular HGB CONC 31.3 g/dL (32.0-36.0); Mean Corpuscular Hemoglobin 27.9 pg (27.0-31.0); Mean Corpuscular Volume 89.3 fL (78.0-98.0); Mean Platelet Volume 8.5 fL (7.4-10.4); Platelet Count 309 thou/uL (130-400); RBC Distribution Width 13.3 % (11.5-14.5); Red Blood Cell (RBC) Count 4.51 mill/uL (4.20-5.40); White Blood Cell (WBC) Count 15.6 thou/uL (4.8-10.8)
[2018-10-30 17:24] LABS: Bilirubin Negative (Negative); Blood, Urine Moderate (Negative); Clarity TURBID (Clear); Glucose, Urine (Dipstick) 100 mg/dL (Negative); Leukocyte Large (Negative); Nitrite Negative (Negative); Protein, Urine (Dipstick) > or equal to 300 mg/dL (Neg-Trace); Specific Gravity, Urine 1.019 (1.002-1.036); Urobilinogen 0.2 mg/dL (0.2-1.0); pH, Urine 7.5 (5.0-9.0)
[2018-10-30] MEDS ORDERED: Aspirin 300 MG Suppository ONE (17:25)
[2018-10-30 17:26] LABS: Bacteria/HPF 4+ HPF (None Seen)
[2018-10-30 17:37] LABS: Yeast-AUWi Flag 237.6 (0-25.0)
[2018-10-30 17:38] LABS: Pathc Cast-AUWi Flag 40.92 (0-2.49)
[2018-10-30 17:43] LABS: Crystals/HPF 1+ TRIPLE PHOS HPF (Negative); Hyaline Casts/LPF NONE SEEN LPF (0-3 Hyaline); Other Casts/LPF None Seen LPF (0-3 Hyaline); Yeast-All Forms None Seen HPF (None Seen)
[2018-10-30 17:43] LABS: ALT (SGPT) 7 U/L (8-55); AST (SGOT) 26 U/L (5-34); Albumin 3.8 g/dL (3.4-4.8); Alkaline Phosphatase 92 U/L (40-150); Anion Gap 19 mmol/L (10-20); BUN (Urea Nitrogen) 32 mg/dL (9.8-20.1); Bilirubin, Total 0.8 mg/dL (0.2-1.2); CK (CPK) 1610 U/L (29-168); Calc. Creatinine Clearance 0 mL/min (70-130); Calcium 9.5 mg/dL (7.8-10.44); Carbon Dioxide 20 mmol/L (23-31); Chloride 100 mmol/L (98-107); Estimated GFR-MDRD 27; Globulin 3.8 g/dL (2.4-3.5); Glucose 332 mg/dL (83-110); Magnesium 1.9 mg/dL (1.6-2.6); Potassium 4.3 mmol/L (3.5-5.1); Protein, Total 7.6 g/dL (6.0-8.3); Sodium 135 mmol/L (136-145)
--- NOTE | 2018-10-30 17:44 | CT ---
CT OF THE BRAIN WITHOUT CONTRAST: 10/30/18 INDICATION: History of seizure and altered mental status. COMPARISON: Prior exam dated 03/10/18. FINDINGS: There is a new subacute appearing infarct involving the right temporal lobe in a right [employer] distributi on with associated vasogenic edema and effacement of the right temporal lobe sulci. There is stable r emote infarct involving the right occipital lobe. There is mild chronic small vessel white matter isc hemic change. There is a remote lacunar infarct involving the left cerebellar hemisphere. There is a stable extra-axial calcified mass along the vertex of the skull near the left parietal region which i s stable likely reflecting a small meningioma. There is scattered vascular calcifications of the intr acranial arteries. Skull is intact. IMPRESSION: 1. 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 Findings called to Dr. Galileo moe 5:18 p.m. on 10/30/18. 2. Chronic ischemic change. 3. Stable extra-axial meningioma overlying the left parietal vertex. POS: [facility]
[2018-10-30 18:02] LABS: CKMB 9.3 ng/mL (0-6.6)
[2018-10-30] MEDS ORDERED: Piperacillin/Tazobactam 4.5 GM VIAL ONE (19:09)
--- NOTE | 2018-10-30 20:08 | CT ---
NONCONTRAST CT OF THORACIC SPINE 10/30/18 INDICATION: Fall with back pain. COMPARISON: None. FINDINGS: There is diffuse osteopenia and moderate multilevel spondylosis of the thoracic spine. No acute fract ure or subluxation is evident. osseous central canal and neural foramina appear maintained. Patchy re ticular nodularity is seen within the right lower lobe which is nonspecific. There is scattered coron jo ann and thoracic aorta calcifications. IMPRESSION: 1. No acute fracture or subluxation demonstrated. 2. Diffuse osteopenia. POS: [facility]
[2018-10-30] MEDS ORDERED: Ondansetron PF 4 MG/2 ML Vial IVP PRN ×2 (20:12→20:36)
[2018-10-30] MEDS ORDERED: Acetaminophen 325 MG TAB PO PRN (20:12)
[2018-10-30] MEDS ORDERED: Sodium Chloride 0.9% 1,000 ML IV SCH (20:12)
[2018-10-30] MEDS ORDERED: Ondansetron ODT 4 MG TAB SL PRN (20:12)
--- NOTE | 2018-10-30 20:34 | CT ---
CT OF THE CERVICAL SPINE WITHOUT CONTRAST: 10/30/18 INDICATION: History of fall with neck pain. COMPARISON: Prior exam dated 01/24/14. FINDINGS: There is moderate to severe multilevel spondylosis of the cervical spine. There is slight anterior tr anslation of C6 on C7 which is stable. The periarticular erosive change along the atlantoaxial articu lation has mildly progressed. This can be degenerative in nature, but also can be seen with entity stevenson ch as CPPD deposition disease. Craniocervical junction otherwise appears within normal limits. There is diffuse osteopenia. Lung apices are clear. The visualized prevertebral soft tissues demonstrate sc attered vascular calcifications. There is a mildly prominent soft tissue density possibly related to lymphadenopathy seen involving the inferior aspect of the right parotid gland measuring 1.9 x 1.8 cm on image 19 of series 9. This was likely present in 2013 but has increased in size. It previously vivek sured 1.5 cm. This is incompletely characterized on the current study. IMPRESSION: 1. No acute fracture or subluxation is evident 2. Moderate to severe multilevel spondylosis cervical spine appears similar to the comparison ex amination. 3. Periarticular erosions of atlantoaxial articulation is slightly progressed and may reflect de generative changes versus CPPD deposition disease. Inflammatory arthritides such as rheumatoid arthri tis is felt to be less likely. 4. Ankylosis of C3-C4. Facet joint is similar appearing. 5. Enlarging soft tissue density within the right parotid gland measuring up to 1.9 cm. A follow up nonemergent CT of the soft tissue of the neck with IV contrast recommended for additional characte rization. Code T POS: [facility]
[2018-10-30] MEDS ORDERED: Ondansetron ODT 4 MG TAB PO PRN (20:36)
[2018-10-30] MEDS ORDERED: Dextrose 50% Abboject 50 ML SYRINGE SLOW IVP PRN (20:36)
[2018-10-30] MEDS ORDERED: Labetalol HCl 100 MG/20 ML VIAL SLOW IVP PRN (20:36)
[2018-10-30] MEDS ORDERED: HumaLOG 300 UNITS/3 ML VIAL SC PRN (20:36)
[2018-10-30] MEDS ORDERED: Senokot S 8.6-50 MG TAB PO PRN (20:36)
[2018-10-30] MEDS ORDERED: Insulin Regular 300 UNITS/3 ML VIAL SC PRN (20:36)
[2018-10-30] MEDS ORDERED: Guaifenesin DM 100-10/5 ML UDCUP PO PRN (20:36)
[2018-10-30] MEDS ORDERED: Acetaminophen 650 MG Suppository PR PRN (20:36)
[2018-10-30] MEDS ORDERED: hydrALAZINE 20 MG/ML VIAL SLOW IVP PRN (20:36)
[2018-10-30] MEDS ORDERED: Dextrose 5% in Water 1,000 ML IV PRN (20:36)
[2018-10-30 20:45] VITALS: BMI 24.0
[2018-10-30] MEDS ORDERED: Vancomycin HCl 500 MG in Sodium Chloride 0.9% 100 ML IVPB SCH (21:00)
[2018-10-30] MEDS ORDERED: Famotidine 20 MG TAB PO SCH (21:00)
[2018-10-30] MEDS ORDERED: Atorvastatin Calcium 40 MG TAB PO SCH (21:00)
[2018-10-30] MEDS ORDERED: Insulin Glargine 20 UNITS in Pre-Filled Syringe 1 EACH SC SCH (21:00)
[2018-10-30 21:12] LABS: CKMB 9.2 ng/mL (0-6.6); Critical Call CKMB DECREASING
--- NOTE | 2018-10-30 21:17 | HP ---
PRIMARY CARE PHYSICIAN: Ly Kelley. CHIEF COMPLAINT: Shaking at home and falls with left-sided weakness. HISTORY OF PRESENT ILLNESS: This is an 88-year-old white female with a known history of previous stroke, who started feeling weak about 2-3 days ago, was not quite acting to her normal level of strength and then she started having some falls yesterday. She was ambulating, but fell 3 or 4 times, had to be helped up by her daughter. The patient was eating okay then, less so today and then she stopped really getting up today. She started having shaking and so her daughter called an ambulance because she was worried because she might be having seizure. She was noted in the ER to be shivering a little bit. However, she was unable to move her left arm. She had a CT in the emergency room that showed a subacute stroke more than 12 hours old with significant vasogenic edema and effacement of the right temporal lobe sulci. This is in the distribution of the right BI LEAD artery. The patient was also noted to have an elevated white blood cell count and elevated lactic acid along with a mildly elevated acute on chronic renal failure, and so she was started on antibiotics and given fluids as well. PAST MEDICAL HISTORY: 1. Diabetes mellitus, insulin dependent. 2. Coronary artery disease. 3. Hypertension. 4. Previous occipital stroke with visual deficits and some left hand numbness. 5. Hyperlipidemia. 6. 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 PAST SURGICAL HISTORY: 1. Coronary artery bypass grafting. 2. Cholecystectomy. SOCIAL HISTORY: The patient lives with her daughter who is her primary care provider. No history of tobacco, alcohol, or illicit drug use. FAMILY HISTORY: Son of alcoholic cirrhosis. No significant family history of heart attack or strokes. ALLERGIES: MORPHINE. CURRENT MEDICATIONS: 1. Diltiazem extended release 300 mg daily. 2. Hydralazine 25 mg daily. 3. Lisinopril 20 mg daily. 4. Zoloft 100 mg daily. 5. NovoLog 70/30 20 units twice a day. 6. Cefpodoxime 200 mg twice a day, uncertain why she is on this. REVIEW OF SYSTEMS: CONSTITUTIONAL: No fevers, no chills. EYES: No changes. She does have some chronic vision problems. ENT: No congestion, drainage, or sore throat. CARDIOVASCULAR: No chest pain. No palpitations or racing heart. PULMONARY: Rare cough yesterday, none today. No shortness of breath or wheezing. No chest tightness. GASTROINTESTINAL: No abdominal pain. No nausea or vomiting. She had a loose bowel movement this morning, but no blood or mucus in it. GENITOURINARY: She has not noticed any urinary problems, not noticed any bladder pain when she urinates. MUSCULOSKELETAL: The patient also reports that she has been having some neck pain, uncertain how long it has been going on for, though she has had some falls over the last couple of days. SKIN: She has had some itching and is currently scratching her arms. She had a little skin tear on her right forearm, she is uncertain how long it has been there for. NEUROLOGIC: See HPI. PHYSICAL EXAMINATION: VITAL SIGNS: Blood pressure 175/70, pulse 88, respirations 19, temperature 98.4 , O2 saturation 99% on room air. GENERAL: This is a well-developed, thin, elderly white female, in no acute distress. HEENT: Pupils are equal, round, and reactive to light. Oropharynx is clear without lesions, erythema, or exudate. Might have a little bit of a left facial droop. She has clear speech. NECK: Tenderness to palpation on her midline lower neck, upper thoracic spine. No bruising or deformity noted. No lymphadenopathy. No thyroid nodules or enlargement. HEART: Regular rate and rhythm. No murmurs, rubs, or gallops. LUNGS: Clear to auscultation bilaterally. No wheezes, crackles, or rhonchi. ABDOMEN: Soft, nontender to palpation. Normoactive bowel sounds. No hepatosplenomegaly or masses. EXTREMITIES: No clubbing, cyanosis, or edema. SKIN: The patient does have a well-healing skin tear on her right forearm, otherwise no lesions noted. NEUROLOGIC: The patient has minimal movement of her left foot and toes to command. She does feel only pressing on her left leg though and reports pain with deep pressure there. She does not report any sensation on the left upper extremity, has no movement of that all, has complete neglect to that extremity. She does have a mild left facial droop, not severe. PSYCHIATRIC: The patient is alert, oriented, remembers me from when I took care of her some years ago. LABORATORY DATA: White blood cell count was 15,000, neutrophils 85%. Hemoglobin, hematocrit, platelets normal. Complete metabolic panel notable for a sodium of 135, carbon dioxide of 20, BUN of 32, creatinine of 1.78 which is up from her baseline around 120-130, glucose of 332, lactic acid 4.2. Creatine kinase 1610. The rest of the complete metabolic panel is normal. CK-MB is elevated at 9.3 and troponin is indeterminate at 0.036. Urinalysis shows protein and glucose along with trace ketones, moderate blood. She has large leukocyte esterase, greater than 50 to too numerous to count white blood cells, lots of squamous epithelial cells and 4+ bacteria. CT of the brain as per HPI. Chest x-ray, I did review the chest x- ray done in the emergency room along with the radiologist's report. She does have visualized sternotomy wires, but no acute cardiopulmonary process visualized. EKG; I did review the EKG done in the emergency room which shows normal sinus rhythm with a right bundle branch block. No significant ST segment changes or other arrhythmias. ASSESSMENT: 1. Acute ischemic stroke of the left parietal region, in left posterior cerebral artery distribution. This stroke is subacute, may have happened and progressed over the last 2-3 days, her symptoms have been getting worse. No evidence of hemorrhage. We will give her antiplatelet agents, aspirin. We will also allow permissive hypertension and will have Neurology consulted as we can see the stroke well on the CT scan and I am not certain if we will need an MRI, we will defer that decision to the neurologist. We will have them do a bedside swallow to see if she safe to eat and take medicine. She is speaking clearly and does not have a significant facial droop, so she may be okay to swallow. We will get Speech Therapy, Physical and Occupational Therapy involved through the stroke team. 2. History of coronary artery disease. The patient does have elevated CK-MB and indeterminate troponin. These are likely from the stroke, not cardiac in etiology, but we will trend the troponins and make sure they are not elevated or going up. 3. Hyperlipidemia. The patient is not currently on statin. We will start her on atorvastatin and check a fasting lipid profile. 4. Diabetes mellitus, insulin dependent. We will start the patient on 20 units of Lantus tonight to cover her basal insulin requirements and put her on a moderate sliding scale and a controlled carbohydrate diet should she be able to swallow. If she does start taking good p.o., then we can increase her to full home insulin dose tomorrow. 5. Acute on chronic renal failure, possibly due to volume depletion or sepsis. The patient already got a liter of fluid in the emergency room. We will run normal saline at 100 mL/h and recheck in the morning. 6. Lactic acidosis with elevated white blood cell count and evidence of urinary tract infection. The patient appears to have sepsis, possibly from a urinary tract infection. We will continue Zosyn and vancomycin given in the emergency room and blood and urine cultures have been drawn. We will recheck lactic acid after her fluid resuscitation in the ER and see if she needs further fluids. 7. Gastrointestinal prophylaxis. We will put the patient on Pepcid twice a day. 8. Deep venous thrombosis prophylaxis. We will put the patient on Lovenox subcu. 9. Code status. I did discuss this with the patient and her daughter. She is a full code. Should she be incapacitated, her daughter would be her medical decision maker, her name is Mary Jo Andrea. Job ID: [id number] [facility]
[2018-10-30 21:21] LABS: Lactic Acid 1.4 mmol/L (0.5-2.2)
[2018-10-30] MEDS: Acetaminophen 325 MG TAB PO PRN (22:04)
[2018-10-30] MEDS ORDERED: Piperacillin/Tazobactam 3.375 GM in Sodium Chloride 0.9% 100 ML IVPB SCH (23:59)
[2018-10-31] MEDS: Sodium Chloride 0.9% 1,000 ML IV SCH ×2 (02:59→11:53)
[2018-10-31] MEDS: Piperacillin/Tazobactam 2.25 GM in Sodium Chloride 0.9% 100 ML IVPB SCH ×2 (04:58→12:55)
[2018-10-31 06:05] LABS: #Basophils 0.1 thou/uL (0.0-0.2); #Eosinphils 0.2 thou/uL (0.0-0.7); #Lymphocytes 1.8 thou/uL (1.20-3.40); #Monocytes 0.8 thou/uL (0.11-0.59); #Neutrophils 8.3 thou/uL (1.40-6.50); %Basophils 0.5 % (0.0-1.0); %Eosinophils 1.4 % (0.0-10.0); %Lymphocytes 16.3 % (21.0-51.0); %Monocytes 7.2 % (0.0-10.0); %Neutrophils 74.7 % (42.0-75.0); Hemoglobin 10.9 g/dL (12.0-16.0); Mean Corpuscular HGB CONC 31.5 g/dL (32.0-36.0); Mean Corpuscular Volume 89.1 fL (78.0-98.0); Mean Platelet Volume 8.7 fL (7.4-10.4); Platelet Count 264 thou/uL (130-400); RBC Distribution Width 13.2 % (11.5-14.5); Red Blood Cell (RBC) Count 3.89 mill/uL (4.20-5.40); White Blood Cell (WBC) Count 11.1 thou/uL (4.8-10.8)
[2018-10-31 06:24] LABS: Anion Gap 13 mmol/L (10-20); BUN (Urea Nitrogen) 26 mg/dL (9.8-20.1); Calc. Creatinine Clearance 29 mL/min (70-130); Carbon Dioxide 23 mmol/L (23-31); Cardiac Risk 5.3 (Less than 4.5); Chloride 109 mmol/L (98-107); Cholesterol 174 mg/dl (< 200 Desired); Estimated GFR-MDRD 37; Glucose 80 mg/dL (83-110); HDL Cholesterol 33 mg/dL (>60 Neg Risk); LDL Cholesterol, Calculated 109 mg/dL; Potassium 3.9 mmol/L (3.5-5.1); Sodium 141 mmol/L (136-145); Triglycerides 160 mg/dL (Less than 150)
[2018-10-31] MEDS ORDERED: Senokot 8.6 MG TAB PO PRN (08:00)
[2018-10-31] MEDS ORDERED: Non-Formulary Item 1 EACH (Sertraline Hcl [Sertraline Hcl] 100 MG) PO SCH (09:00)
[2018-10-31] MEDS ORDERED: Saccharomyces boulardii 250 MG CAP PO SCH (09:00)
[2018-10-31] MEDS ORDERED: Aspirin 325 mg Enteric Coated Tablet PO SCH (09:00)
[2018-10-31] MEDS ORDERED: DILTIAZEM HCL 300 MG PO SCH (09:00)
[2018-10-31] MEDS ORDERED: Diltiazem HCl CD 300 mg Capsule PO SCH (09:00)
[2018-10-31] MEDS ORDERED: hydrALAZINE 25 MG TAB PO SCH (09:00)
[2018-10-31] MEDS ORDERED: Enoxaparin Sodium 40 MG/0.4 ML SYRINGE SC SCH (09:00)
[2018-10-31] MEDS ORDERED: Enoxaparin Sodium 30 MG/0.3 ML SYRINGE SC SCH (09:00)
[2018-10-31] MEDS: Acetaminophen 325 MG TAB PO PRN (10:20)
[2018-10-31 11:42] VITALS: TEMP 98.9
--- NOTE | 2018-10-31 13:08 | PDOC.PN ---
- Subjective Encounter Start Date: 10/31/18 Encounter Start Time: 09:00 Subjective: awake, lethargic, responds to verbal questions - Objective Resuscitation Status - Order Detail: 10/30/18 18:36 Resuscitation Status Routine Resuscitation Status: FULL: Full Resuscitation Discussed with: Patient and Daughter ELISEO Reviewed: Yes Vital Signs & Weight: Vital Signs (12 hours) Temp Pulse Pulse Pulse Resp BP BP 10/31/18 11:42 98.9 F 72 16 10/31/18 10:16 74 10/31/18 10:15 74 10/31/18 08:53 76 78 139/69 141/99 H 10/31/18 08:50 10/31/18 08:00 99.1 F 72 18 10/31/18 04:00 97.5 F L 75 16 BP Pulse Ox 10/31/18 11:42 140/65 98 10/31/18 10:16 10/31/18 10:15 10/31/18 08:53 10/31/18 08:50 98 10/31/18 08:00 162/70 H 98 10/31/18 04:00 191/77 H 95 Weight Admit Weight 137 lb 8 oz Weight 137 lb 8 oz I&O: 10/30/18 10/31/18 11/01/18 06:59 06:59 06:59 Intake Total 350 Balance 350 Result Diagrams: 10/31/18 05:11 10/31/18 05:11 Additional Labs: Accuchecks 10/31/18 10/31/18 10/30/18 10:36 06:20 21:45 POC Glucose 135 H 111 H 294 H Phys Exam - Physical Examination HEENT: PERRLA, moist MMs Neck: no JVD, supple Respiratory: no wheezing, no rales Cardiovascular: RRR, no significant murmur Gastrointestinal: soft, non-tender, positive bowel sounds Musculoskeletal: no edema, pulses present left hemiparesis 2-3/5 strength, no cranial nr gross deficits Dx/Plan (1) Demand ischemia of myocardium Code(s): I24.8 - OTHER FORMS OF ACUTE ISCHEMIC HEART DISEASE Status: Acute (2) Acute CVA (cerebrovascular accident) Code(s): I63.9 - CEREBRAL INFARCTION, UNSPECIFIED Status: Acute Comment: right temporal lobe (3) HTN (hypertension) Code(s): I10 - ESSENTIAL (PRIMARY) HYPERTENSION Status: Chronic Qualifiers: Hypertension type: essential hypertension Qualified Code(s): I10 - Essential (primary) hypertension (4) DM type 2 (diabetes mellitus, type 2) Status: Chronic Qualifiers: Diabetes mellitus senior care insulin use: with senior care use Diabetes mellitus complication status: with unspecified complications Qualified Code(s) : E11.8 - Type 2 diabetes mellitus with unspecified complications; Z79.4 - longterm (current) use of insulin (5) Rhabdomyolysis Code(s): M62.82 - RHABDOMYOLYSIS Status: Acute Qualifiers: Encounter type: subsequent encounter Comment: mild (6) HEATHER (acute kidney injury) Code(s): N17.9 - ACUTE KIDNEY FAILURE, UNSPECIFIED Status: Acute Comment: improving (7) HLD (hyperlipidemia) Code(s): E78.5 - HYPERLIPIDEMIA, UNSPECIFIED Status: Acute Qualifiers: Hyperlipidemia type: mixed hyperlipidemia Qualified Code(s): E78.2 - Mixed hyperlipidemia (8) Muscular deconditioning Code(s): R29.898 - OTH SYMPTOMS AND SIGNS INVOLVING THE MUSCULOSKELETAL SYSTEM Status: Acute (9) UTI (urinary tract infection) Status: Acute Qualifiers: Urinary tract infection type: acute cystitis Hematuria presence: without hematuria Qualified Code(s): N30.00 - Acute cystitis without hematuria (10) CAD (coronary artery disease) Code(s): I25.10 - ATHSCL HEART DISEASE OF [place] CORONARY ARTERY W/O ANG PCTRS Status: Chronic Qualifiers: Coronary Disease-Associated Artery/Lesion type: bypass graft [place] vs. transplanted heart: [place] heart Associated angina: with stable angina Qualified Code(s): I25.708 - Atherosclerosis of coronary artery bypass graft(s) , unspecified, with other forms of angina pectoris (11) Meningioma Code(s): D32.9 - BENIGN NEOPLASM OF MENINGES, UNSPECIFIED Status: Chronic Comment: Stable since 2013 - Plan d/w hospitalist at [facility], will accept her -: will need mri, usg carotids to be done at [facility] -: continue zosyn for uti until cultures are back -: Stroke team f/u, barely stood with PT this am -: is cleared for [facility] soft diet, on asp, lipitor, lantus * . Review of Systems - Medications/Allergies Allergies/Adverse Reactions: Allergies Allergy/AdvReac Type Severity Reaction Status Date / Time morphine Allergy Verified 10/31/18 01:49 Medications: Current Medications Acetaminophen (Tylenol) 650 mg PO Q4H PRN PRN Reason: Headache/Fever/Mild Pain (1-3) Last Admin: 10/31/18 10:20 Dose: 650 mg Acetaminophen (Tylenol) 650 mg [place] Q4H PRN PRN Reason: Headache/Fever/Mild Pain (1-3) Aspirin (Ecotrin) 325 mg PO DAILY [facility] Last Admin: 10/31/18 10:17 Dose: 325 mg Atorvastatin Calcium (Lipitor) 40 mg PO HS [facility] Last Admin: 10/30/18 21:59 Dose: 40 mg Dextrose/Water (Dextrose 50%) 25 gm SLOW IVP PRN PRN PRN Reason: Hypoglycemia Diltiazem HCl (Cardizem Cd) 300 mg PO DAILY [facility] Last Admin: 10/31/18 10:15 Dose: 300 mg Enoxaparin Sodium (Lovenox) 30 mg SC 0900 [facility] Last Admin: 10/31/18 10:17 Dose: 30 mg Famotidine (Pepcid) 20 mg PO QPM [facility] Last Admin: 10/30/18 22:00 Dose: 20 mg Glucagon (Glucagon) 1 mg IM PRN PRN PRN Reason: Hypoglycemia Guaifenesin/Dextromethorphan (Robitussin Dm) 15 ml PO Q4H PRN PRN Reason: Cough Hydralazine HCl (Apresoline) 10 mg SLOW IVP Q4H PRN PRN Reason: BP > 220/110 Hydralazine HCl (Apresoline) 50 mg PO TID [facility] Last Admin: 10/31/18 10:16 Dose: 50 mg Dextrose/Water (D5w) 1,000 mls @ 0 mls/hr IV .Q0M PRN PRN Reason: Hypoglycemia Insulin Glargine 20 units/ (Miscellaneous Medication) 0.2 mls @ 0 mls/hr [facility] Last Admin: 10/30/18 22:07 Dose: 0.2 mls Sodium Chloride (Normal Saline 0.9%) 1,000 mls @ 100 mls/hr IV .Q10H [facility] Last Admin: 10/31/18 11:53 Dose: Not Given Piperacillin Sod/Tazobactam (Sod 2.25 gm/ Sodium Chloride) 100 mls @ 200 mls/ hr IVPB 0400,1200,2000 [facility] Last Admin: 10/31/18 12:55 Dose: 100 mls Vancomycin HCl 500 mg/ Sodium (Chloride) 100 mls @ 100 mls/hr IVPB Q24HR [facility] Insulin Human Lispro (Humalog) 0 units SC .MODERATE SLIDING SC PRN PRN Reason: Moderate Correctional Scale Last Admin: 10/30/18 23:23 Dose: 6 unit Isosorbide Mononitrate (Imdur Er) 30 mg PO DAILY [facility] Last Admin: 10/31/18 10:15 Dose: 30 mg Labetalol HCl (Normodyne) 20 mg SLOW IVP Q1H PRN PRN Reason: BP > 220/110 Miscellaneous Medication (Pharmacy To Dose) 0 each IVPB PRN PRN PRN Reason: Pharmacy to Dose Ondansetron HCl (Zofran Odt) 4 mg PO Q6H PRN PRN Reason: Nausea/Vomiting Ondansetron HCl (Zofran) 4 mg IVP Q6H PRN PRN Reason: Nausea/Vomiting Saccharomyces Boulardii (Florastor) 250 mg PO DAILY [facility] Last Admin: 10/31/18 10:16 Dose: 250 mg Senna (Senokot) 2 tab PO HSPRN PRN PRN Reason: Constipation Senna/Docusate Sodium (Senokot S) 2 tab PO BID PRN PRN Reason: Constipation Sertraline HCl (Zoloft) 100 mg PO DAILY [facility] Last Admin: 10/31/18 10:15 Dose: 100 mg Sodium Chloride (Flush - Normal Saline) 10 ml IVF PRN PRN PRN Reason: Saline Flush
[2018-10-31 14:00] VITALS: BP 137/61
[2018-10-31] MEDS ORDERED: Vancomycin HCl 500 MG in Sodium Chloride 0.9% 100 ML IVPB SCH (21:00)
--- NOTE | 2018-11-01 13:23 | PQF ---
ALBINO LAMA VINAYA KUMAR MD [id number] CLINICAL DOCUMENTATION IMPROVEMENT CLARIFICATION FORM: ICD-10 Updated PLEASE DO AN ADDENDUM TO THE PROGRESS NOTE WITH ANY DOCUMENTATION UPDATES OR ADDITIONS AND CARRY THROUGH TO DC SUMMARY. THANK YOU. DATE: 11/01/2018 ATTN: DR. HUNG Please exercise your independent, professional judgment in responding to the clarification form. Clinical indicators are provided on the bottom of this form for your review Please check appropriate box(s) to clarify if the following diagnosis has been ( ruled in) or (ruled out): SEPSIS [ ] Ruled in diagnosis [ ] Continue to treat [ ] Resolved [ x ] Ruled out diagnosis [ ] Cannot rule out diagnosis [ ] Other diagnosis [ ] Unable to determine In addition, please specify: Present on Admission (POA): [ ] Yes [ ] No [ ] Unable to determine For continuity of documentation, please document condition throughout progress notes and discharge summary. Thank You. CLINICAL INDICATORS - SIGNS / SYMPTOMS / LABS *ER: D[facility]TR CALLED EMS B/C SHE FOUND PT SHIVERING BUT A&OX4. PT C/O TAIL BONE PAIN. DGHTR STATES PT COMBATIVE AND FALLING X 2-3 DAYS. NORMALLY AMBULATORY AND ABLE TO CARE FOR HERSELF. *H&P-MADIHA: HAS ELEVATED WBC AND LACTIC ACID LEVELS WITH HEATHER ON CKD. GIVEN ABX AND IVF. THE PT APPEARS TO HAVE SEPSIS POSSIBLY FROM A UTI. WBC-15. LACTIC ACID 4.2. UA WITH LG LE AND >50-TNTC WBCs WITH 4+ BACT. *10/31-JAG: DEMAND ISCHEMIA. ACUTE CVA. RHABDO. COULD BARELY STAND WITH PT. RISK FACTORS *ADVANCED AGE - 88 y/o *HX DIABETES *OLD AND NEW CVA TREATMENTS *IVF *IV ABX Thank you, Kelli (This form is maintained as a part of the permanent medical record) 2014 [employer]. All Rights Reserved Kelli Perez RN, [email or web address] [email or web address] [phone] [facility]
--- NOTE | 2018-11-01 16:10 | DIS ---
DATE OF ADMISSION: 10/30/2018 DATE OF DISCHARGE: 10/31/2018 DISCHARGE DISPOSITION: [facility]. PRIMARY DISCHARGE DIAGNOSES: Acute cerebrovascular accident with acute right temporal lobe cerebrovascular accident, demand ischemia, mild rhabdomyolysis, urinary tract infection, acute kidney injury. SECONDARY DISCHARGE DIAGNOSES: Deconditioning, hypertension, diabetes mellitus type 2, dyslipidemia, coronary artery disease, chronic meningioma, which is stable from 2014. PROCEDURES DONE DURING HOSPITALIZATION: Chest x-ray done showed no acute infiltrate. CT cervical spine without contrast done showed no acute fracture or subluxation. There is moderate to severe multilevel spondylosis of the cervical spine seen, possible CPPD deposition disease at atlantoaxial articulation. There is enlarging soft tissue density incidentally seen in the right parotid gland measuring 1.[address] thoracic spine noncontrast done showed no acute fracture or subluxation. There is diffuse osteopenia seen. CT brain without contrast done showed subacute appearing infarct involving right temporal lobe. There is chronic ischemic changes seen. Stable extra-axial meningioma overlying the left parietal vertex. Urine culture grew more than 100,000 E. coli, and 50 to 75,000 Proteus mirabilis. E. coli was resistant to ampicillin, ciprofloxacin, gentamicin, Levaquin, Zosyn, and sulfa. Proteus was resistant to Macrobid, otherwise sensitive to all other antibiotics. Blood cultures x2, no growth. Influenza A and B antigens were negative. Had a white count of 15 with discharge number of 11, H and H 10 and 34, platelet count 264. Discharge BUN and creatinine are 26 and 1.36. LDL 109, triglycerides 160. Troponin I was indeterminate, peaking up to 0.10. CK-MB was 9.3. Lactic acid 4.2. BUN 32, creatinine 1.7 on the day of admission. CK levels were 1610 on the day of admission. DISCHARGE MEDICATIONS: 1. Cardizem CD 300 mg p.o. daily. 2. NPH 15 units subcu twice daily. 3. Imdur extended release 30 mg daily. 4. Sertraline 100 mg daily. 5. Aspirin 325 mg daily. 6. Lipitor 40 mg at bedtime. 7. The patient was sent on Zosyn to [facility] and we will update the physician there. 8. Hydralazine 50 mg p.o. 3 times daily. 9. Senokot 2 tabs p.o. at bedtime. 10. Saccharomyces 250 mg p.o. daily. ALLERGIES: ALLERGIC TO MORPHINE. BRIEF COURSE DURING HOSPITALIZATION: The patient initially was brought to emergency room after she was found down on the floor at home. She was also feeling weak from 2 to 3 days prior to arrival. She apparently fell 3 to 4 times at home as well. An initial workup revealed sepsis, urinary tract infection and acute CVA. The patient was admitted to stroke unit. She also had demand ischemia with acute kidney injury as well, and was dehydrated. She had mild rhabdomyolysis as well. Pancultures were obtained and the patient was initially placed on Zosyn. In view of the patient's [facility] Medicare plan, the patient was initially stabilized here and transferred to [facility]. I have given complete updates to Dr. Cat. We will fax the microbiology reports to [facility] for further care and change of antibiotics as well. Prior to discharge, she was hemodynamically stable. Please see a [id number] documentation for the day of discharge on [facility]. Job ID: [id number]
== END 2018-10-31 14:26 | disposition short-term general hospital (02) | DRG 64 ==
LOC: ERS 16:17 → ERHOLD 18:13 → 2SE 19:55
PROVIDERS: ADMIT Internal Medicine; ATTEND Internal Medicine
DX: I63.9 Cerebral infarction, unspecified (principal); G93.6 Cerebral edema; N17.9 Acute kidney failure, unspecified; E87.2 Acidosis; I24.8 Other forms of acute ischemic heart disease; N30.00 Acute cystitis without hematuria; G81.94 Hemiplegia, unspecified affecting left nondominant side; I25.718 Atherosclerosis of autologous vein coronary artery bypass graft(s) with other forms of angina pectoris; R29.6 Repeated falls; E11.9 Type 2 diabetes mellitus without complications; I10 Essential (primary) hypertension; R40.2142 Coma scale, eyes open, spontaneous, at arrival to emergency department; R40.2242 Coma scale, best verbal response, confused conversation, at arrival to emergency department; R40.2362 Coma scale, best motor response, obeys commands, at arrival to emergency department; H54.7 Unspecified visual loss; E78.2 Mixed hyperlipidemia; M47.892 Other spondylosis, cervical region; T79.6XXA Traumatic ischemia of muscle, initial encounter; W19.XXXA Unspecified fall, initial encounter; E86.0 Dehydration; D32.9 Benign neoplasm of meninges, unspecified; B96.20 Unspecified Escherichia coli [E. coli] as the cause of diseases classified elsewhere; B96.4 Proteus (mirabilis) (morganii) as the cause of diseases classified elsewhere; Z86.718 Personal history of other venous thrombosis and embolism; Z95.1 Presence of aortocoronary bypass graft; Z79.4 Long term (current) use of insulin; Z79.899 Other long term (current) drug therapy; Z88.8 Allergy status to other drugs, medicaments and biological substances; Z86.73 Personal history of transient ischemic attack (TIA), and cerebral infarction without residual deficits
CPT/HCPCS: 36415; 36416; 51701; 70450; 71045; 72125; 72128; 80048; 80053; 80061; 81003; 81015; 82550; 82553; 83605; 83735; 84484; 85025; 87040; 87077; 87086; 87186; 87804; 93005; 96361; 96365; 96375; A4353; J1650; J1825; J2543; J3370; J7050

== ENCOUNTER 2020-07-09 09:02 | Inpatient (IN) | payer MEDICARE, MEDICAID ==
[2020-07-09] MEDS ORDERED: Aspirin Chewable 81 MG TAB ONE (09:20)
[2020-07-09 09:52] LABS: #Eosinphils 0.2 thou/uL (0.0-0.7); #Lymphocytes 1.3 thou/uL (1.20-3.40); #Monocytes 0.7 thou/uL (0.11-0.59); #Neutrophils 6.6 thou/uL (1.40-6.50); %Basophils 0.4 % (0.0-1.0); %Eosinophils 2.5 % (0.0-10.0); %Lymphocytes 14.5 % (21.0-51.0); %Monocytes 7.6 % (0.0-10.0); Hemoglobin 9.9 g/dL (12.0-16.0); Mean Corpuscular HGB CONC 33.8 g/dL (32.0-36.0); Mean Corpuscular Hemoglobin 31.5 pg (27.0-31.0); Mean Corpuscular Volume 93.2 fL (78.0-98.0); Mean Platelet Volume 7.6 fL (7.4-10.4); Platelet Count 219 thou/uL (130-400); RBC Distribution Width 12.5 % (11.5-14.5); Red Blood Cell (RBC) Count 3.15 mill/uL (4.20-5.40); White Blood Cell (WBC) Count 8.8 thou/uL (4.8-10.8)
[2020-07-09] MEDS ORDERED: Aspirin 300 MG Suppository ONE (09:52)
[2020-07-09 09:56] LABS: INR-International Normal Ratio 1.1; PTT 34.6 sec (22.9-36.1)
[2020-07-09 10:15] LABS: ALT (SGPT) 343 U/L (8-55); AST (SGOT) 655 U/L (5-34); Alkaline Phosphatase 337 U/L (40-110); Anion Gap 19 mmol/L (10-20); BUN (Urea Nitrogen) 61 mg/dL (9.8-20.1); Bilirubin, Total 0.4 mg/dL (0.2-1.2); CK (CPK) 26 U/L (29-168); Calc. Creatinine Clearance 0 mL/min (70-130); Calcium 8.1 mg/dL (7.8-10.44); Carbon Dioxide 24 mmol/L (23-31); Chloride 92 mmol/L (98-107); Estimated GFR-MDRD 12; Globulin 2.9 g/dL (2.4-3.5); Glucose 200 mg/dL (83-110); Potassium 4.5 mmol/L (3.5-5.1); Protein, Total 5.9 g/dL (6.0-8.3); Sodium 130 mmol/L (136-145)
[2020-07-09] MEDS ORDERED: Fentanyl 100 MCG/2 ML VIAL ONE (10:30)
[2020-07-09 10:37] LABS: Bilirubin Negative (Negative); Blood, Urine Moderate (Negative); Glucose, Urine (Dipstick) Negative (Negative); Ketone, Urine Trace mg/dL (Negative); Leukocyte Moderate (Negative); Nitrite Negative (Negative); Protein, Urine (Dipstick) 100 mg/dL (Neg-Trace); Urobilinogen 0.2 mg/dL (Less than 2)
[2020-07-09 10:42] LABS: Clarity Turbid (Clear)
[2020-07-09 10:46] LABS: RBC/HPF Greater than 50 HPF (0-3)
[2020-07-09 10:47] LABS: Bacteria/HPF 4+ HPF (None Seen); Squamous Epithelial None Seen HPF (0-3); WBC/HPF Greater than 50 HPF (0-3)
[2020-07-09] MEDS ORDERED: cefTRIAXone\\ROCEPHIN 2 GM VIAL ONE (11:09)
[2020-07-09] MEDS ORDERED: Sodium Chloride 0.9% 100 ML ONE (11:09)
--- NOTE | 2020-07-09 11:31 | CT ---
CT HEAD WITHOUT CONTRAST: 07/09/20 HISTORY: Acute stroke protocol. Left upper extremity and left lower extremity weakness with confusion. COMPARISON: 10/30/2018 TECHNIQUE: Axial CT imaging at 5 mm intervals from the vertex through the skull base without contrast. FINDINGS: The visualized paranasal sinuses/mastoid air cells demonstrate mild polypoid mucosal thickening withi n the posterior ethmoid air cells on the left. No intracranial hemorrhage or midline shift. No mass e ffect is noted. There is a stable calcified meningioma near the vertex, measuring 2.4 cm. There is encephalomalacia associated with extensive prior infarction involving the occipital lobe and temporal lobe on the right. No intracranial hemorrhage. IMPRESSION: Chronic findings as detailed above. No intracranial hemorrhage is seen. Results discussed with Dr. Ochoa at approximately 9:15 a.m. on 07/09/20. CODE CR POS: DIONNE
--- NOTE | 2020-07-09 11:36 | RAD ---
PORTABLE CHEST: 07/09/20 PROVIDED CLINICAL HISTORY: Weakness and confusion. COMPARISON: 10/30/2018 FINDINGS: The cardiac silhouette appears enlarged, which may be at least partially on the basis of portable francisco hnique. Vascular calcification is noted involving the aortic arch. Median sternotomy changes are agai n seen. The lungs are hypoinflated. No lobar consolidation, pleural fluid or pneumothorax apparent. IMPRESSION: Hypoinflated examination without definite acute cardiopulmonary process. POS: DESIRAE
--- NOTE | 2020-07-09 11:50 | CT ---
CT ANGIOGRAM HEAD AND NECK: 07/09/20 HISTORY: Acute stroke protocol. Left upper extremity and left lower extremity weakness with confusion. History of prior infarction. TECHNIQUE: Axial CT imaging at 1.25 mm intervals from the vertex through the lung apices with IV contrast using CT angiogram protocol with coronal and sagittal 3D reformatted imaging. FINDINGS: Patchy nonspecific linear and ground glass opacity noted within the lung apices, which may be on the basis of volume loss. Mild infectious pneumonitis cannot be excluded. There is atherosclerotic calcif ication of the aortic arch. The retroantral fat and parapharyngeal fat appear clear bilaterally. The parotid gland on the left is unremarkable. The submandibular glands are unremarkable. There is a nonspecific mass within the paro tid gland on the right, inferiorly, posterior to the region of the submandibular vein, measuring 1.5 cm. The region of the tonsillar pillars, the epiglottic and preepiglottic fat, the hyoid bone, the thyroi d cartilage, the cricoid cartilage, the level of the glottis and the region of the thyroid gland demo nstrate no acute findings. No lymphadenopathy is seen within the neck. There is no hemodynamically significant stenosis involving the origin of the great vessels. The proxi mal aspect of the left common carotid artery demonstrates tortuosity. On the basis of NASCET criteria there is no hemodynamically significant stenosis involving the common carotid artery on either side. Mild atherosclerotic calcification is seen at the origin of the right subclavian artery. On the basis of NASCET criteria there is no hemodynamically significant stenosis involving the product marketing intern al carotid artery on either side. There is atherosclerotic calcification involving the distal aspect of the left vertebral artery. The left vertebral artery is dominant. Bilateral vertebral arteries are patent. There is multifocal stenosis at the distal aspect of the right vertebral artery. Multifocal areas of mild stenosis noted involving the basilar artery. There is a focal area of severe stenosis involving the distal aspect of the right P1 segment, best se en on axial image 185. There appears to be a origin of a patent left posterior cerebellar artery. Atherosclerotic calcification of the cavernous carotid arteries is noted. The A1 segment appears rai nt bilaterally. The distal GAYATHRI branches appear intact. The M1 segment appears patent bilaterally. The distal M2 branches appear grossly unremarkable. There is an extraaxial lesion near the vertex, just to the left of midline, suggesting a 1.6 cm meningioma, which probably invades the adjacent superior sagittal sinus. The ICA bifurcation appears unremarkable on the coronal reformatted imaging. There is evidence of a prior infarction involving the right temporal and right occipital lobe. Review of the osseous structures demonstrates multilevel degenerative change within the cervical spin e with no worrisome lytic or blastic bone lesion. IMPRESSION: 1. No hemodynamically significant stenosis involving the common carotid artery or the internal caroti d artery on either side on the basis of NASCET criteria. 2. No evidence for an acute central intracranial arterial occlusion. 3. Findings suggesting a meningioma at the level of the vertex, to the left of midline, as above. 4. 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 5. Results called to Dr. Ochoa at 9:40 a.m. on 07/09/20. CODE CR POS: DIONNE
--- NOTE | 2020-07-09 12:05 | CT ---
CT ABDOMEN AND PELVIS WITHOUT CONTRAST: 07/09/20 PROVIDED CLINICAL HISTORY: Generalized weakness. COMPARISON: 12/04/2016 FINDINGS: Bibasilar subsegmental atelectatic changes are seen. Contrast material is present within the renal collecting systems as well as within the renal parenchy mal from recent CT examination, The retention of contrast material at this point suggests renal insuf ficiency. There is no hydronephrosis. The solid abdominal organs demonstrate an otherwise unremarkable CT appearance, suboptimally evaluate d in the absence of IV contrast material. There is a stable lobulated appearance to the lateral rommel n of the mid left kidney. There is no evidence for bowel obstruction. There is no evidence for appendicitis. The gallbladder is surgically absent. A small fat-containing supraumbilical ventral hernia. Prominent near circumferent ial bladder wall thickening. The urinary bladder is decompressed and this is not well evaluated. Ther e is gas noted within the urinary bladder. No inflammatory fat stranding, free fluid or free air apparent. Atherosclerotic vascular calcificatio ns are seen. The osseous structures demonstrate no concerning lytic or blastic lesions. IMPRESSION: 1. Bladder wall thickening and bladder gas. Correlate with concerns for cystitis. 2. Other chronic findings as described. POS: DESIRAE
--- NOTE | 2020-07-09 12:32 | PDOC.FPRHP ---
- History of Present Illness Chief Complaint: weakness History of Present Illness: 89 y/o F with PMHx multiple strokes, meningioma, diabetes, hypertension who presents by EMS from [facility] for new onset weakness and L-sided facial weakness. Pt is altered and very poor historian, most history obtained from ER report and daughter. Per ER, patient was noted to have L facial drooping and L-sided upper and lower extremity weakness. Reported last known normal was around 4 AM, although patient was sleeping at this time. Apparently patient was communicating well, answering questions appropriately, and without weakness before bedtime last night. residential records reveal daily ASA and plavix. Per report, patient does not have any deficits from previous strokes. Daughter Mary Jo reports she may have some deficits. On admission, patient is oriented only to self, she is not oriented to place or year; limited ROS and history per patient mental status. She does endorse abdominal pain and swelling. She does not answer other questions. ED Course: NIH 7 > 2, EKG - no acute ischemia, neg trop, neg CXR Rocephin, ASA CT abd - no obstruction, absent gallbladder CT head nml CTA head neck nml - Allergies/Adverse Reactions Allergies Allergy/AdvReac Type Severity Reaction Status Date / Time morphine Allergy Verified 11/27/19 17:32 - Home Medications Medication Instructions Recorded Confirmed Type Atorvastatin Calcium [Lipitor] 40 mg PO HS #30 tab 10/31/18 07/10/20 Rx Aspirin [Ecotrin Low Strength] 1 tab PO DAILY 07/10/20 07/10/20 History Clopidogrel Bisulfate [Clopidogrel] 1 tab PO DAILY 07/10/20 07/10/20 History Diltiazem HCl [Diltiazem 24Hr CD] 1 cap PO PRN PRN 07/10/20 07/10/20 History Divalproex Sodium [Depakote 1 cap PO TID 07/10/20 07/10/20 History Sprinkle] Escitalopram Oxalate [Lexapro] 1 tab PO DAILY 07/10/20 07/10/20 History Gabapentin [Neurontin] 2 tab PO DAILY 07/10/20 07/10/20 History Hydrochlorothiazide 1 tab PO DAILY 07/10/20 07/10/20 History Insulin Glargine [Lantus] 20 units SQ DAILY 07/10/20 07/10/20 History Lactobacillus [Floranex] 1 tab PO DAILY 07/10/20 07/10/20 History Lisinopril [Zestril] 1 tab PO DAILY 07/10/20 07/10/20 History Sennosides [Senna] 1 cap PO DAILY 07/10/20 07/10/20 History cloNIDine [Catapres] 1 tab PO PRN PRN 07/10/20 07/10/20 History - History PMHx: mulitple strokes, HTN, possible mood disorder, CAD, diastolic dysfunction, diabetes, meningioma PSHx: L knee surgery, sternotomy, cholecystectomy FHx: unable to obtain Social: former smoker on record review, no known hx drug or etoh use - Review of Systems ROS unobtainable: due to mental status Gastrointestinal: reports: abdominal pain, other (abdominal distention) - Vital signs BP: 133/74, MAP: 93, Pulse: 87, Resp: 18, Temp: 99.8 (Oral), O2 sat: 96 on (Room Air), 99.9 kg - Physical Exam Constitutional: NAD, other (somewhat lethargic, oriented to self, not oriented to location or time) HEENT: normocephalic and atraumatic, PERRLA, no scleral icterus -HEENT: edentulous, very dry mucous membranes, mild erythema skin around R eye and mild conjunctival injection with scant yellow discharge Neck: no LAD, no JVD Chest: no-tender to palpation Heart: RRR, normal S1/S2, no murmurs/rubs/gallops -Heart: bilateral pedal edema to ankles Lungs: CTAB, no respiratory distress, no rales/rhonchi, no wheezing, no retractions Abdomen: bowel sounds present -Abdomen: mild diffuse tenderness, abd distended, no rebound or guarding, palpable umb ilical hernia reducible Musculoskeletal: normal structure -Neurological: oriented to self only, does not follow commands well, unable to fully assess neurologic status; GCS 13 Skin: no jaundice, other (xerosis bilateral lower extremities) Heme/Lymphatic: no unusual bruising or bleeding Psychiatric: other (unable to assess due to mental status) FMR H&P: Results - Labs Result Diagrams: 07/10/20 04:47 07/10/20 04:47 Lab results: WBC 8.8 thou/uL (4.8-10.8) 07/09/20 09:40 Hgb 9.9 g/dL (12.0-16.0) L 07/09/20 09:40 Hct 29.4 % (36.0-47.0) L 07/09/20 09:40 MCV 93.2 fL (78.0-98.0) 07/09/20 09:40 Plt Count 219 thou/uL (130-400) 07/09/20 09:40 Neutrophils % 75.0 % (42.0-75.0) 07/09/20 09:40 Sodium 130 mmol/L (136-145) L 07/09/20 09:40 Potassium 4.5 mmol/L (3.5-5.1) 07/09/20 09:40 Chloride 92 mmol/L (98-107) L 07/09/20 09:40 Carbon Dioxide 24 mmol/L (23-31) 07/09/20 09:40 BUN 61 mg/dL (9.8-20.1) H 07/09/20 09:40 Creatinine 3.57 mg/dL (0.6-1.1) H 07/09/20 09:40 Glucose 200 mg/dL (83-110) H 07/09/20 09:40 Lactic Acid 2.2 mmol/L (0.5-2.2) 07/09/20 10:42 Calcium 8.1 mg/dL (7.8-10.44) 07/09/20 09:40 Total Bilirubin 0.4 mg/dL (0.2-1.2) 07/09/20 09:40 AST 655 U/L (5-34) H 07/09/20 09:40 ALT 343 U/L (8-55) H 07/09/20 09:40 Alkaline Phosphatase 337 U/L (40-110) H 07/09/20 09:40 Creatine Kinase 26 U/L (29-168) L 07/09/20 09:40 B-Natriuretic Peptide 62.7 pg/mL (0-100) 07/09/20 09:40 Serum Total Protein 5.9 g/dL (6.0-8.3) L 07/09/20 09:40 Albumin 3.0 g/dL (3.4-4.8) L 07/09/20 09:40 Lipase 9 U/L (8-78) 07/09/20 11:51 Urine Ketones Trace mg/dL (Negative) A 07/09/20 10:13 Urine Blood Moderate (Negative) A 07/09/20 10:13 Urine Nitrite Negative (Negative) 07/09/20 10:13 Ur Leukocyte Esterase Moderate (Negative) H 07/09/20 10:13 Urine RBC Greater than 50 HPF (0-3) A 07/09/20 10:13 Urine WBC Greater than 50 HPF (0-3) A 07/09/20 10:13 Ur Squamous Epith Cells None Seen HPF (0-3) 07/09/20 10:13 Urine Bacteria 4+ HPF (None Seen) A 07/09/20 10:13 - EKG Interpretation EKG: EKG: SR, RBB, QTc borderline 488 FMR H&P: A/P - Plan Acute encephalopathy r/o CVA Present on admission. Likely 2/2 infection/delirium vs new CVA. DDx also includes medication side effects. Hx multiple strokes in the past. CT head/CTA head and neck negative for acute findings in ED. Initial NIH 7, repeat NIH 2 per ED evaluation. - f/u MRI brain to r/o new CVA - treat infection as below - continue home ASA, plavix, statin for CVA - neuro checks - bedside swallow pending Abdominal distention CT abd/pelvis in ED remarkable for acute cystitis but otherwise negative for acute findings. Appears to have fairly large stool burden although no obstr uction, which may be contributing to pain and distention. Work up of transaminitis as below. - will start bowel regimen - monitor symptoms UTI UA with significant bacteria, WBCs and suspected delirium as above. s/p rocephin in ED. Hx some resistant infections in past although most recent in 2019 sensitive to rocephin. - f/u urine cx - continue rocephin and adjust therapy pending urine cx HEATHER with possible CKD Cr 3.5 with apparent baseline around 1.1. Very dry appearing on exam. s/p 1 L bolus in ED. - will administer another 1 L bolus LR and start mIVF 125 cc/h LR - strict I/O - f/u FeNa - monitor volume status - avoid nephrotoxic drugs: hold home lisinopril, HCTZ, gabapentin Transaminitis Unclear etiology. DDx includes bile duct stone, infectious etiology, or transient hypotension. s/p cholecystectomy although could still have stone in bile duct. Lipase wnl, no evidence of gallstone pancreatitis. - fluid resuscitation as above and will continue to monitor - RUQ US to evaluate bile duct - f/u hepatitis panel - continue to monitor LFTs HFpEF Grade 2/3 diastolic dysfunction with EF 60-65% noted on echo from 2018. Clinically, does not appear to be volume overloaded. Appears very dry on exam and BNP is 65. - monitor fluid status closely with fluid resuscitation Normocytic anemia Appears to be chronic on lab review. No signs of active bleeding. - continue to monitor - consider iron studies Hyponatremia Na 130 on admission. Suspect due to poor oral intake. - fluid resuscitation as above - continue to monitor Hx multiple strokes Depakote in home med list, presumably for prophylaxis after multiple strokes. No documented history of seizures available and patient unable to give further history at this time. - f/u depakote level - plan to resume home depakote in AM pending level LOS: likely > 48 hours, admit stroke FMR H&P: Upper Level - Plan Date/Time: 07/09/20 1226 Ms Cabrera is a 89yo [place] resident [facility] who was brought in for new left sided weakness and left sided facial droop that was present upon awakening. She reports she came in for abdominal pain. Last seen normal was reportedly 4am but she was asleep at the time. She is currently on ASA and Plavix. Her daughter is present in the room and is unable to tell if she has any new weakness or not. Patient will answer questions with sternal rub or loud voice but will not open eyes. She walked with a walker prior to moving to [place] which was about a year ago, has progressively become weaker and started working with PT recently. In ED received Fentanyl, ASA 300mg TN, Rocephin, 1L NS PE: General: Answers to voice but will not open eyes even to sternal rub. NAD. Or iented to person only. CV: RRR Pulm: CTA Neuro: Difficult to assess due to patient cooperation. Weakness of LE R>L. Able to raise both arms. ED reported NIH 7-> 2. Extremities: edema present R>L A/P: Suspect Acute CVA vs Encephalopathy 2/2 UTI -Left sided weakness/facial droop with last seen normal 4am. Outside the window for TPA. Hx of CVA x3 with hx of TPA administration with prior stroke. EKG no signs of acute ischemia. CT/CTA head with no acute findings, chronic changes seen. Neuro checks q4h, Admit to stroke. MRI ordered for AM. HEATHER on CKD3 - Cr 3.57, baseline around 1.4 - Ordered another 1L bolus. LR at 125, strict I&Os. Will also check urine sodium and creatinine. Will recheck kidney function this evening after IVF. Consider Nephro consult in AM. Transaminitis -AST/ALT: 655/343. Previously normal. CT abdomen with no acute findings. DDx: Shock liver vs infectious hepatitis. No reported hypotensive episodes and interestingly her lactate is normal x2. Will continue to trend CMP and Hep panel. Meningioma -Seen on CT 2.4cm. Pt and family unaware but has been present on prior CT scans. UTI -UA c/w infections, Cx pending. CT also with bladder wall thickening and gas. Treated with Ceftriaxone in ED, will continue. Last UTI with E coli and Proteus sensitive to Ceftriaxone. No evidence of sepsis as pt is afebrile, no leukocytosis, VSS. Will go ahead and check procal though due to transaminitis and new HEATHER. Right Parotid lesion -Visualized on CT possibly neoplasm per read. I, Maria T Mitchell, have evaluated this patient and agree with findings/plan as outlined by diversity intern resident. Pertinent changes/additions are listed here. Addendum - Attending - Attending Attestation Date/Time: 07/10/20 4516 I personally evaluated the patient and discussed the management with Dr. Olson/Stephen. I agree with the History, Examination, Assessment and Plan documented above with any addition or exceptions noted below.
[2020-07-09 14:00] LABS: Lactic Acid 1.5 mmol/L (0.5-2.2)
[2020-07-09 14:23] LABS: Troponin I 0.019 ng/mL (< 0.028)
[2020-07-09] MEDS ORDERED: Iopamidol-370 76% 500 ML 1 ML ONE (15:22)
[2020-07-09] MEDS ORDERED: Lactated Ringer's 1,000 ML IV SCH (17:00)
[2020-07-09 18:16] LABS: Troponin I 0.037 ng/mL (< 0.028)
[2020-07-09 18:32] LABS: HBCM Index 0.13 S/CO (0-0.79); HBSAg Index 0.22 S/CO (0-0.99); Hep A IgM AB Non-Reactive (NonReactive); Hep B Surf Ag Non-Reactive S/CO (NonReactive); Hep C IgG Ab Non-Reactive (NonReactive); Hep C Index 0.12 S/CO (0-0.79); Hepatitis B Core IgM Abs Non-Reactive (NonReactive)
[2020-07-09] MEDS ORDERED: Milk Of Magnesia 30 ML UDCUP PO PRN (18:40)
[2020-07-09] MEDS ORDERED: Milk Of Magnesia 30 ML UDCUP PO SCH (18:45)
[2020-07-09] MEDS ORDERED: Dextrose 5% in Water 1,000 ML IV PRN (19:18)
[2020-07-09] MEDS ORDERED: Dextrose 50% Abboject 50 ML SYRINGE SLOW IVP PRN (19:18)
[2020-07-09 21:15] VITALS: BMI 33.8
[2020-07-09] MEDS: Atorvastatin Calcium 40 MG TAB PO SCH (23:29)
[2020-07-09] MEDS: Lactated Ringer's 1,000 ML IV SCH (23:34)
[2020-07-09] MEDS: Heparin 5,000 UNITS/ML VIAL SC SCH (23:34)
[2020-07-10] MEDS ORDERED: Acetaminophen 650 MG Suppository PR SCH ×2 (00:15→04:00)
[2020-07-10 00:36] LABS: CKMB 1.7 ng/mL (0-6.6)
--- NOTE | 2020-07-10 04:24 | PDOC.BPN ---
- Brief Progress Note Received a page from nurse that recently came on to her shift that Ms. Cabrera appeared more altered than what she was told at checkout. Patient was AxO x 0. We went up to evaluate patient, patient AxOx0, responds to painful stimuli, sleeping, no respiratory distress, vitals have remained stable, O2 sat 94% on RA. Ordered a troponin and EKG. Troponin negative, EKG NSR. Patient is currently on abx for UTI. Will continue to monitor closely and if mentation does not improve consider Brain MRI.
[2020-07-10 05:14] LABS: #Eosinphils 0.1 thou/uL (0.0-0.7); #Lymphocytes 1.8 thou/uL (1.20-3.40); #Monocytes 0.6 thou/uL (0.11-0.59); #Neutrophils 5.3 thou/uL (1.40-6.50); %Basophils 0.1 % (0.0-1.0); %Eosinophils 1.3 % (0.0-10.0); %Lymphocytes 22.6 % (21.0-51.0); %Monocytes 8.2 % (0.0-10.0); %Neutrophils 67.9 % (42.0-75.0); Mean Corpuscular HGB CONC 33.9 g/dL (32.0-36.0); Mean Corpuscular Hemoglobin 31.1 pg (27.0-31.0); Mean Corpuscular Volume 91.7 fL (78.0-98.0); Mean Platelet Volume 7.9 fL (7.4-10.4); Platelet Count 236 thou/uL (130-400); RBC Distribution Width 12.7 % (11.5-14.5); Red Blood Cell (RBC) Count 2.88 mill/uL (4.20-5.40); White Blood Cell (WBC) Count 7.7 thou/uL (4.8-10.8)
[2020-07-10 05:39] LABS: ALT (SGPT) 271 U/L (8-55); AST (SGOT) 247 U/L (5-34); Albumin 2.8 g/dL (3.4-4.8); Alkaline Phosphatase 292 U/L (40-110); Anion Gap 16 mmol/L (10-20); BUN (Urea Nitrogen) 64 mg/dL (9.8-20.1); Bilirubin, Total 0.2 mg/dL (0.2-1.2); Calc. Creatinine Clearance 16 mL/min (70-130); Calcium 8.1 mg/dL (7.8-10.44); Carbon Dioxide 26 mmol/L (23-31); Chloride 96 mmol/L (98-107); Estimated GFR-MDRD 12; Globulin 2.7 g/dL (2.4-3.5); Glucose 158 mg/dL (83-110); Potassium 4.5 mmol/L (3.5-5.1); Protein, Total 5.5 g/dL (6.0-8.3); Sodium 133 mmol/L (136-145)
--- NOTE | 2020-07-10 06:31 | PDOC.FM ---
- Subjective Subjective: Overnight noted to be lethargic, A&O x 0. No acute interventions. This morning, patient remains lethargic. She tries to squeeze my hands bilaterally on command, but has poor real estate branch manager strength. She does not open her eyes. She does wince upon abdominal palpation, worst over mid-abdomen. Unable to obtain further history from patient. - Objective Vital Signs & Weight: Vital Signs (12 hours) Temp Pulse Resp BP Pulse Ox 07/10/20 03:35 100.5 F H 97 14 131/51 L 95 07/09/20 23:25 101.0 F H 90 14 157/64 H 92 L 07/09/20 21:13 98.4 F 82 20 154/69 H 94 L Weight Weight 92.215 kg Result Diagrams: 07/10/20 04:47 07/10/20 04:47 EKG Reviewed by me: Yes (SR with BBB on tele) Phys Exam - Physical Examination Constitutional: NAD lethargic, difficult to arouse dry mucous membranes Respiratory: no wheezing, no rales, clear to auscultation bilateral Cardiovascular: RRR, no significant murmur Gastrointestinal: positive bowel sounds moderate distention, generalized tenderness worst over mid abdomen 2+ bilateral pedal edema to ankles GCS 12, follows some commands, answers some questions Deviation from normal: unable to assess due to mental status Skin: no rash Dx/Plan - Plan Plan: Acute encephalopathy r/o CVA Present on admission. Likely 2/2 infection/delirium vs new CVA. DDx also includes medication side effects. Hx multiple strokes in the past. CT head/CTA head and neck negative for acute findings in ED. Initial NIH 7, repeat NIH 2 per ED evaluation. - f/u MRI brain to r/o new CVA - treat infection as below - continue home ASA, plavix, statin for CVA - neuro checks - bedside swallow pending Suspected cholangitis Fever, transaminitis, abdominal pain. RUQ revealed 1.5 cm bile duct. - consulted GI, appreciate recommendations: MRCP and recheck LFTs this afternoon - possible ERCP later- daughter prefers to avoid invasive procedures so MRCP will be done first - abx escalated to zosyn, rocephin discontinued UTI UA with significant bacteria, WBCs and suspected delirium as above. s/p rocephin in ED. Hx some resistant infections in past although most recent in 2019 sensitive to rocephin. - f/u urine cx - abx escalated to zosyn due to concern for cholangitis, DC rocephin HEATHER with possible CKD Cr 3.5 with apparent baseline around 1.1 although this baseline is from early 2019. Very dry appearing on exam. s/p 1 L bolus in ED, additional bolus was not given yesterday. - 1 L NS bolus this AM - will switch LR to NS today, continue at 125 cc/h for now and monitor volume status - strict I/O - FeNa 1.1%, likely intrinsic injury - f/u renal US - consider consult to nephro in AM if still no improvement in Cr - avoid nephrotoxic drugs: hold home lisinopril, HCTZ, gabapentin - renal dosing of drugs Transaminitis Possibly due to early sepsis although main concern at this time is that patient could have acute cholangitis. Negative hepatitis panel. - GI consulted and appreciate recs, mgmt as above - continue to monitor LFTs HFpEF Grade 2/3 diastolic dysfunction with EF 60-65% noted on echo from 2018. Clinically, does not appear to be volume overloaded. Appears very dry on exam and BNP is 65. - monitor fluid status closely with fluid resuscitation Normocytic anemia Appears to be chronic on lab review. No signs of active bleeding. - continue to monitor - consider iron studies Hyponatremia, improving Na 130 on admission. Suspect due to poor oral intake. - fluid resuscitation as above - continue to monitor Hx multiple strokes Depakote in home med list, presumably for prophylaxis after multiple strokes. No documented history of seizures available and patient unable to give further history at this time. - no elevation of depakote level - continue home depakote LOS: likely > 48 hours, admit stroke Addendum - Attending - Attending Attestation Date/Time: 07/10/20 [id number] I personally evaluated the patient and discussed the management with Dr. Olson. I agree with the History, Examination, Assessment and Plan documented above with any addition or exceptions noted below. Patient here with concerns for CVA versus encephalopathy. Confused overnight. Continue CVA workup including MRI if she will tolerate. Continue abx for suspected UTI. She did fever overnight. Awaiting cultures. She also has new HEATHER on CKD, does not seem to be responding to IVF. Will obtain Renal U/S. We are still working on determining the cause and significance of her LFT elevation. Likely Nephro consult today or tomorrow pending our evaluation.
[2020-07-10] MEDS: Lactated Ringer's 1,000 ML IV SCH (07:13)
[2020-07-10] MEDS ORDERED: Insulin Glargine 20 UNITS in Pre-Filled Syringe SC SCH (09:00)
[2020-07-10] MEDS ORDERED: Sodium Chloride 0.9% 1,000 ML IV SCH (09:00)
[2020-07-10] MEDS ORDERED: FLU VACC QS2020-21(65YR UP)/PF 240 MCG/0.7 ML SYRINGE IM ONE (09:00)
[2020-07-10] MEDS: Heparin 5,000 UNITS/ML VIAL SC SCH ×3 (09:42→21:16)
[2020-07-10] MEDS: Aspirin 81 mg Enteric Coated Tablet PO SCH (09:47)
[2020-07-10] MEDS: Divalproex Sodium 125 mg Sprinkle Capsule PO SCH ×3 (09:47→15:29)
[2020-07-10] MEDS: Clopidogrel Bisulfate 75 MG TAB PO SCH (09:47)
[2020-07-10] MEDS: Insulin Glargine 10 UNITS in Pre-Filled Syringe 1 EACH SC SCH (09:48)
[2020-07-10] MEDS: Polyethylene Glycol 3350 17 GM Packet PO SCH (09:48)
[2020-07-10] MEDS: Sodium Chloride 0.9% 1,000 ML IV SCH ×2 (10:24→21:15)
--- NOTE | 2020-07-10 10:36 | ULT ---
RIGHT UPPER QUADRANT ULTRASOUND: 07/10/20 PROVIDED CLINICAL HISTORY: Evidence for common duct stone. FINDINGS: Correlation is made with CT examination from 07/09/2020. FINDINGS: The pancreas is largely obscured. The visualized IVC appears normal. The liver demonstrates no eviden ce for mass. Mild central intrahepatic biliary ductal dilatation and dilation of the common duct to 1 .5 cm maximally. There is no sonographic evidence for common duct stone. The gallbladder is surgicall y absent. The right kidney demonstrates no hydronephrosis or mass. IMPRESSION: Biliary ductal dilatation, possibly on the basis of patient age and post cholecystectomy status. If there is persistent clinical concern for biliary obstruction, consider MRCP. POS: DESIRAE
[2020-07-10] MEDS ORDERED: cefTRIAXone\\ROCEPHIN 1 GM in Sodium Chloride 0.9% 100 ML IVPB SCH (12:00)
--- NOTE | 2020-07-10 12:44 | CON ---
DATE OF CONSULTATION: 07/10/2020 REASON FOR CONSULTATION: Fever and elevated LFTs. 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 She was admitted from the halfway yesterday with fairly acute onset of left-sided facial droop and generalized weakness. She was complaining of some abdominal pain at the time as well, though it is unclear how that was localizing. Upon presentation, the patient was found to have acute kidney injury and urinalysis suggested urinary tract infection. Laboratory studies are also significant for transaminase elevation with AST up to 655 and ALT 343 with normal bilirubin and lipase. A CT scan demonstrated changes consistent with urinary tract infection, but solid organs could not be well evaluated, so an abdominal ultrasound was performed and this demonstrated absence of the gallbladder and common bile duct dilation to 1.5 cm, unclear if this might represent reservoir effect from her age and prior cholecystectomy. The patient has been treated empirically initially with Rocephin and now with IV Zosyn. She has remained hemodynamically stable. She did spike a fever last night to 101, but this has come down now to 98.3. Lactic acid is normal and LFTs this morning have trended down with AST down to 247, ALT 271, and alkaline phosphatase 292. REVIEW OF SYSTEMS: Unable to obtain due to the patient's altered mental status. PAST MEDICAL HISTORY: Cholecystectomy, multiple CVAs with vascular dementia, meningioma, hypertension, diabetes, coronary artery disease, and diastolic dysfunction. ALLERGIES: MORPHINE. OUTPATIENT MEDICATIONS: 1. Insulin Lantus 20 units daily. 2. Senna one capsule daily. 3. Hydrochlorothiazide. 4. Gabapentin. 5. Lactobacillus. 6. Lexapro. 7. Diltiazem. 8. Depakote. 9. Plavix. 10. Aspirin. 11. Clonidine. 12. Lipitor. 13. Lisinopril. INPATIENT MEDICATIONS: Zosyn 2.25 g every 8 hours IV. SOCIAL HISTORY: She is a former smoker. No alcohol or drug use. FAMILY HISTORY: Noncontributory. PHYSICAL EXAMINATION: VITAL SIGNS: Max temperature overnight was 101.0 and current temperature now to 98.3, pulse 86, blood pressure 142/60, and 93% oxygen saturation on room air. GENERAL: Elderly 89-year-old woman, lying in bed comfortably, in no distress. MENTAL: She is unresponsive to voice. No meaningful communication. SKIN: No jaundice. No rashes were palpable. EYES: No scleral icterus. Extraocular movements intact. ENT: Mucous membranes moist. No oral lesions. LYMPH: No submandibular or supraclavicular lymphadenopathy. THYROID: Nontender to palpation. HEART: Regular rate and rhythm. LUNGS: Clear to auscultation bilaterally. ABDOMEN: Nondistended. Bowel sounds are hypoactive, but present. Soft and tender to palpation diffusely including the lower abdomen, right upper quadrant, and left upper quadrant. No guarding or rebound tenderness. EXTREMITIES: No peripheral edema. VESSELS: Radial pulses 2+ bilaterally. NEURO: The patient does not follow commands. LABORATORY STUDIES: Hemoglobin 9.0, WBC 7.7, and platelets 236. INR 1.1. Sodium 133, potassium 4.5, BUN 64, creatinine 3.53, and glucose 145. Troponin negative. BNP 65. Lactic acid only 1.5. Lipase normal at 9. Total bilirubin 0.2, alkaline phosphatase initially 337 now down to 292, AST initially 655 now down to 247, and ALT initially 343 now down to 271. IMAGING STUDIES: Brain CT shows prior extensive right-sided occipital and parietal infarct. No acute infarct. There is a 1.6 cm stable meningioma. There is also what appears to be a small right parotid neoplasm. Chest x-ray shows no acute processes. CT of the abdomen and pelvis without contrast showed evidence of cystitis, absent gallbladder, solid organs not well evaluated without contrast. Abdominal ultrasound showed absent gallbladder, common bile duct dilated to 1.5 cm, possibly from reservoir effect plus age. ASSESSMENT AND PLAN: 1. LFT elevation, acute. This is a transaminase elevation, which has dramatically declined today since presentation yesterday with no increase in total bilirubin. 2. Biliary dilation. Abdominal ultrasound shows common bile duct 1.5 cm, but this is in the context of prior cholecystectomy, age 89, unclear at this point, whether this represent reservoir effect or biliary obstructive process. 3. Fever. Consider possibly secondary to severe urinary tract infection, but cholangitis must be considered in the differential. She is currently getting IV Zosyn and fever has come down today. She remains otherwise hemodynamically stable. 4. Abdominal pain. This is generalized, unclear whether this is driven primarily by urinary infection or possible biliary abnormality. 5. Urinary tract infection. I had a long discussion with the patient's daughter today. Given the patient's fever, abdominal pain, and acute LFT elevation as well as biliary dilation on imaging, there is certainly concern for possible cholangitis. On the other hand, the fever could be explained just by the urinary infection, the biliary dilation by her prior cholecystectomy and age, and the LFT elevation by early sepsis. I have enough suspicion for cholangitis that I do think it would be reasonable to proceed with endoscopic retrograde cholangiopancreatography this afternoon. I discussed the potential benefits as well as the risks of the procedure with the patient's daughter. The patient's daughter would prefer us to avoid any invasive procedures if possible. To that end, I would recommend we trend the LFTs again this afternoon, as well as obtain MRCP imaging. If the LFTs down to back up significantly, the magnetic resonance cholangiopancreatography demonstrates a biliary obstructive process, or the patient were to have clinical deterioration, then I would recommend proceeding with endoscopic retrograde cholangiopancreatography thereafter. We will follow along closely. Continue current supportive care and antibiotics. Thank you for the consultation. Please call anytime with questions or concerns. Job ID: [id number]
[2020-07-10] MEDS: Piperacillin/Tazobactam 2.25 GM in Sodium Chloride 0.9% 100 ML IVPB SCH ×2 (13:43→21:15)
[2020-07-10 14:22] LABS: ALT (SGPT) 222 U/L (8-55); AST (SGOT) 165 U/L (5-34); Albumin 2.7 g/dL (3.4-4.8); Alkaline Phosphatase 260 U/L (40-110); Bilirubin, Direct 0.2 mg/dL (0.1-0.3); Bilirubin, Total 0.3 mg/dL (0.2-1.2); Protein, Total 5.4 g/dL (6.0-8.3)
--- NOTE | 2020-07-10 15:41 | ULT ---
RENAL ULTRASOUND: Date: 07-10-2020 PROVIDED CLINICAL HISTORY: Acute kidney injury FINDINGS: The right kidney measures 9.1 x 4.1 x 4.2 cm and demonstrates no evidence for hydronephrosis or mass. The left kidney measures 9.3 x 4.4 x 3.7 cm and demonstrates no evidence for hydronephrosis or mass. The urinary bladder appears sonographically unremarkable. IMPRESSION: No evidence for hydronephrosis. POS: DESIRAE
--- NOTE | 2020-07-10 16:55 | MRI ---
MRI Brain WO Con: 07/10/2020 4:18 PM CLINICAL HISTORY: 81-year-old female with history of CVA; concern for acute stroke. TECHNIQUE: Multiplanar, multisequence images were obtained of the brain. COMPARISON: CT the brain dated July 09, 2020 at 9:09 AM FINDINGS: Extra axial spaces: There is diffuse cerebral atrophy. There is prominent encephalomalacia involving the right parietal and right occipital lobe from a prior ischemic infarct.. There is a partially calcified meningioma involving the vertex of the skull. Hemorrhage: None. Ventricular system: Normal in size and morphology for the patient's age. Basal cisterns: Normal. Cerebral parenchyma: Normal. Midline shift: None. Cerebellum: Remote lacunar infarct of the left cerebral hemisphere. Brainstem: Normal. OTHER: Calvarium: Normal. Vascular system: Normal. Visualized Paranasal sinuses: Mild mucosal thickening in the ethmoid air cells. Mild mucosal thickeni ng of the sphenoid sinus.. Visualized Orbits: Negative lenses have been replaced. Visualized upper cervical spine: Normal. Sella and skull base: There is partial effusion of the left mastoid air cells.. IMPRESSION: 1. No acute intracranial abnormality. No evidence for acute stroke. 2. Partial effusion of the left mastoid air cells with mild paranasal sinus disease. 3. Chronic ischemic changes above. 4. Partially calcified meningioma overlying the left frontal lobe near the vertex.
--- NOTE | 2020-07-10 17:05 | MRI ---
EXAM: MRI Abdomen WO Con DATE: 07/10/2020 4:45 PM INDICATION: Elevated LFTs with fever COMPARISON: Prior CT the abdomen and pelvis dated March 27, 2015 and July 09, 2020 FINDING: Motion artifact limits image detail. There is slightly more pronounced intrahepatic and extrahepatic biliary ductal dilatation when compar ed to the prior CTs of the abdomen and pelvis. The common bile duct is enlarged measuring 1.3 cm. There is layered T2 hypointensity seen in the region of the distal common bile duct suspicious for sm all amount of layered sludge. This is best seen on image 11 of series 2 and image 29 of series 3. There is a small cystic abnormality is seen along the posterior margin of the stomach, near the super ior margin of the pancreatic body, adjacent to the main pancreatic duct. There is diffuse atrophy of the pancreas. This cystic abnormality measures 1.7 cm in its greatest mediolateral dimensions. The adrenal glands and spleen appear within normal limits. No definite focal hepatic lesion is evident. No free fluid is identified. No hydronephrosis is noted. No overt marrow signal abnormality is demonstrated. IMPRESSION: 1. Findings suspicious for layered sludge within the distal common bile duct. Moderate to prominent d ilatation of the common bile duct and intrahepatic biliary ductal system. 2. 1.7 cm cystic abnormalities seen adjacent to the superior margin of the pancreatic body is suspici ous for either a small pancreatic pseudocyst or potentially a small side branch IPMN tumor. Follow-up MR evaluation in 6 months is recommended to document stability.
[2020-07-10] MEDS: Atorvastatin Calcium 40 MG TAB PO SCH (21:13)
--- NOTE | 2020-07-11 05:44 | PDOC.FM ---
- Subjective Subjective: Patient doing well this AM, no acute concerns, reports leg pain and CARR. Patient hypertensive overnight SBP to 190. - Objective Vital Signs & Weight: Vital Signs (12 hours) Temp Pulse Resp BP Pulse Ox 07/11/20 04:03 98 F 84 20 164/86 H 95 07/11/20 00:00 98.1 F 84 14 153/86 H 100 07/10/20 20:00 98.7 F 88 16 194/78 H 95 Weight Weight 92.215 kg I&O: 07/09/20 07/10/20 07/11/20 07:59 06:59 06:59 Intake Total 1701 Output Total 1350 Balance 351 Result Diagrams: 07/11/20 05:56 07/11/20 05:56 Phys Exam - Physical Examination Constitutional: NAD Respiratory: no wheezing, no rales, no rhonchi Cardiovascular: RRR, no significant murmur, no rub Gastrointestinal: soft, non-tender, no distention, positive bowel sounds Musculoskeletal: no edema, pulses present Psychiatric: normal affect, A&O x 3 Dx/Plan - Plan Plan: Acute encephalopathy r/o CVA Present on admission. Likely 2/2 infection/delirium vs new CVA. DDx also includes medication side effects. Hx multiple strokes in the past. CT head/CTA head and neck negative for acute findings in ED. Initial NIH 7, repeat NIH 2 per ED evaluation. - f/u MRI brain to r/o new CVA - treat infection as below - continue home ASA, plavix, statin for CVA - neuro checks - bedside swallow pending Suspected cholangitis Fever, transaminitis, abdominal pain. RUQ revealed 1.5 cm bile duct. - consulted GI, appreciate recommendations: MRCP shows sludge in CBD, cyst in pancreas - possible ERCP later- daughter prefers to avoid invasive procedures - abx escalated to zosyn, rocephin discontinued UTI UA with significant bacteria, WBCs and suspected delirium as above. s/p rocephin in ED. Hx some resistant infections in past although most recent in 2019 sensitive to rocephin. - f/u urine cx - abx escalated to zosyn due to concern for cholangitis HEATHER with possible CKD Cr 3.5 with apparent baseline around 1.1 although this baseline is from early 2019. Very dry appearing on exam. s/p 1 L bolus in ED, additional bolus was not given yesterday. - hold fluids - strict I/O - FeNa 1.1%, likely intrinsic injury - avoid nephrotoxic drugs: hold home lisinopril, HCTZ, gabapentin - renal dosing of drugs Transaminitis Possibly due to early sepsis although main concern at this time is that patient could have acute cholangitis. Negative hepatitis panel. - GI consulted and appreciate recs, mgmt as above - continue to monitor LFTs HFpEF Grade 2/3 diastolic dysfunction with EF 60-65% noted on echo from 2018. Clinically, does not appear to be volume overloaded. Appears very dry on exam and BNP is 65. - monitor fluid status closely Normocytic anemia Appears to be chronic on lab review. No signs of active bleeding. - continue to monitor - consider iron studies Hyponatremia, improving Na 130 on admission. Suspect due to poor oral intake. - fluid resuscitation as above - continue to monitor Hx multiple strokes Depakote in home med list, presumably for prophylaxis after multiple strokes. No documented history of seizures available and patient unable to give further history at this time. - no elevation of depakote level - continue home depakote LOS: likely > 48 hours, admit stroke Addendum - Attending - Attending Attestation Date/Time: 07/11/202118 I personally evaluated the patient and discussed the management with Dr. Leos I agree with the History, Examination, Assessment and Plan documented above with any addition or exceptions noted below. 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 No stone or infected sludge seen. Continue supportive care. HEATHER improving.
[2020-07-11 06:18] LABS: #Eosinphils 0.4 thou/uL (0.0-0.7); #Lymphocytes 1.1 thou/uL (1.20-3.40); #Monocytes 0.6 thou/uL (0.11-0.59); #Neutrophils 4.1 thou/uL (1.40-6.50); %Basophils 0.1 % (0.0-1.0); %Eosinophils 5.7 % (0.0-10.0); %Lymphocytes 18.4 % (21.0-51.0); %Monocytes 9.2 % (0.0-10.0); %Neutrophils 66.6 % (42.0-75.0); Hemoglobin 9.4 g/dL (12.0-16.0); Mean Corpuscular HGB CONC 33.6 g/dL (32.0-36.0); Mean Corpuscular Hemoglobin 30.7 pg (27.0-31.0); Mean Corpuscular Volume 91.4 fL (78.0-98.0); Mean Platelet Volume 7.5 fL (7.4-10.4); Platelet Count 230 thou/uL (130-400); RBC Distribution Width 12.6 % (11.5-14.5); Red Blood Cell (RBC) Count 3.06 mill/uL (4.20-5.40); White Blood Cell (WBC) Count 6.1 thou/uL (4.8-10.8)
[2020-07-11] MEDS: Piperacillin/Tazobactam 2.25 GM in Sodium Chloride 0.9% 100 ML IVPB SCH ×3 (06:20→21:13)
[2020-07-11] MEDS: Sodium Chloride 0.9% 1,000 ML IV SCH (06:26)
[2020-07-11 06:37] LABS: ALT (SGPT) 158 U/L (8-55); AST (SGOT) 89 U/L (5-34); Albumin 2.8 g/dL (3.4-4.8); Alkaline Phosphatase 233 U/L (40-110); Anion Gap 13 mmol/L (10-20); BUN (Urea Nitrogen) 47 mg/dL (9.8-20.1); Bilirubin, Total 0.3 mg/dL (0.2-1.2); Calc. Creatinine Clearance 24 mL/min (70-130); Calcium 8.5 mg/dL (7.8-10.44); Carbon Dioxide 26 mmol/L (23-31); Chloride 104 mmol/L (98-107); Estimated GFR-MDRD 20; Globulin 2.8 g/dL (2.4-3.5); Glucose 122 mg/dL (83-110); Potassium 3.9 mmol/L (3.5-5.1); Protein, Total 5.6 g/dL (6.0-8.3); Sodium 139 mmol/L (136-145)
[2020-07-11 08:14] LABS: SARS-CoV-2 NAA Rapid Test Not Detected (NotDetected)
[2020-07-11] MEDS ORDERED: Non-Formulary Item 1 EACH (Diltiazem Hcl [Diltiazem 24hr Cd] 240 MG Cap.Er.24h) PO PRN (08:37)
[2020-07-11] MEDS: Aspirin 81 mg Enteric Coated Tablet PO SCH (08:55)
[2020-07-11] MEDS: Clopidogrel Bisulfate 75 MG TAB PO SCH (08:55)
[2020-07-11] MEDS: Escitalopram Oxalate 20 mg Tablet PO SCH (08:55)
[2020-07-11] MEDS: Insulin Glargine 10 UNITS in Pre-Filled Syringe 1 EACH SC SCH (09:08)
[2020-07-11] MEDS: Heparin 5,000 UNITS/ML VIAL SC SCH (09:08)
[2020-07-11] MEDS: Polyethylene Glycol 3350 17 GM Packet PO SCH (09:09)
[2020-07-11] MEDS ORDERED: Rocuronium Bromide 10 MG/ML (10ML VIAL) ONE (09:25)
[2020-07-11] MEDS ORDERED: Ondansetron PF 4 MG/2 ML Vial ONE (09:25)
[2020-07-11] MEDS ORDERED: Lidocaine 1% PF 5 ML VIAL ONE (09:25)
[2020-07-11] MEDS ORDERED: Labetalol HCl 100 MG/20 ML VIAL ONE ×2 (09:25→11:43)
[2020-07-11] MEDS ORDERED: PROPOFOL 200 MG/20 ML VIAL ONE (09:25)
[2020-07-11] MEDS ORDERED: Dexamethasone 20 MG/5 ML VIAL ONE (09:25)
[2020-07-11] MEDS ORDERED: Glycopyrrolate 0.2 MG/ML 5 ML SYRINGE ONE (09:25)
[2020-07-11] MEDS: Divalproex Sodium 125 mg Sprinkle Capsule PO SCH ×3 (09:38→16:18)
[2020-07-11] MEDS ORDERED: Iothalamate Meglumine 60% 50 ML VIAL FS ONE (09:59)
[2020-07-11] MEDS ORDERED: Indomethacin 50 MG SUPP ONE (10:07)
[2020-07-11] MEDS ORDERED: Fentanyl 100 MCG/2 ML VIAL ONE (10:17)
[2020-07-11] MEDS ORDERED: Labetalol HCl 100 MG/20 ML VIAL SLOW IVP PRN (12:59)
--- NOTE | 2020-07-11 13:17 | RAD ---
Exam: Intraprocedure fluoroscopy for ERCP. HISTORY: Colitis And is: 3 intraoperative fluoroscopic images demonstrate retrograde opacification of a dilated intrah epatic and extra hepatic biliary system. Dilatation likely due to reservoir effect from previous cholecystectomy. IMPRESSION: Intraprocedure fluoroscopy as above.
--- NOTE | 2020-07-11 15:43 | OP ---
DATE OF PROCEDURE: 07/11/2020 PREPROCEDURE DIAGNOSES: 1. Possible cholangitis. 2. Elevated liver enzymes. 3. MRCP suggesting dependent sludge and a dilated bile duct. POSTPROCEDURE DIAGNOSES: 1. Ampullary stenosis, status post sphincterotomy. 2. Clear bile. 3. No evidence of filling defects in the common bile duct. RECOMMENDATIONS: 1. Continue treatment for urinary tract infection. 2. Recheck liver function tests tomorrow to ensure improving. 3. We will observe for any signs of bleeding. 4. Hold Plavix and subcu heparin for 3 days after ERCP. 5. Resume diet. ANESTHESIA: General endotracheal anesthesia. PROCEDURE IN DETAIL: The patient's family was informed of risks, benefits, and possible complications of endoscopy including perforation, reaction to medication, aspiration, risk of pancreatitis. The findings of the MRCP yesterday were explained to the patient's daughter by Dr. Jaramillo yesterday. Informed consent was obtained from the patient's daughter, and the patient was brought to the endoscopy suite and intubated. Once her airways was protected, she was placed in the prone position on fluoroscopy table. The Indocin suppositories were used and the patient was given IV fluids to reduce risk of post ERCP pancreatitis. Initial attempt to cannulate was resulted in cannulation with a wire of the distal pancreatic duct. Therefore, a second wire was used to introduce into a new guide catheter and this was advanced into the common bile duct and then the first wire was removed. There was a very tight opening at the ampulla for the common bile duct. We did use quite a bit of pressure for the cannulate to ascend into the dilated bile duct, it was dilated to about 1.5 to 2 cm as noted on the MRCP. A sphincterotomy was performed over a guidewire and there was no evidence of bleeding. The duct was then filled with a balloon occlusion cholangiogram with no filling defects noted. The duct was swept 3 to 4 times. No stones noted. There was no bile or sludge or purulent bile. The scope was removed. The patient tolerated the procedure well and there were no complications. Good drainage was noted both endoscopically and radiographically, and photo documentation of both was obtained. Job ID: [id number]
[2020-07-11] MEDS: Atorvastatin Calcium 40 MG TAB PO SCH (20:48)
[2020-07-11] MEDS: HumaLOG 300 UNITS/3 ML VIAL SC PRN (20:51)
[2020-07-12 05:23] LABS: #Eosinphils 0.1 thou/uL (0.0-0.7); #Lymphocytes 0.9 thou/uL (1.20-3.40); #Monocytes 0.5 thou/uL (0.11-0.59); #Neutrophils 5.9 thou/uL (1.40-6.50); %Basophils 0.1 % (0.0-1.0); %Eosinophils 1.9 % (0.0-10.0); %Lymphocytes 12.1 % (21.0-51.0); %Monocytes 6.6 % (0.0-10.0); %Neutrophils 79.3 % (42.0-75.0); Mean Corpuscular HGB CONC 34.3 g/dL (32.0-36.0); Mean Corpuscular Hemoglobin 31.3 pg (27.0-31.0); Mean Platelet Volume 7.7 fL (7.4-10.4); Platelet Count 251 thou/uL (130-400); RBC Distribution Width 12.7 % (11.5-14.5); Red Blood Cell (RBC) Count 2.88 mill/uL (4.20-5.40); White Blood Cell (WBC) Count 7.4 thou/uL (4.8-10.8)
[2020-07-12] MEDS: Piperacillin/Tazobactam 2.25 GM in Sodium Chloride 0.9% 100 ML IVPB SCH ×3 (05:27→21:16)
[2020-07-12] MEDS: HumaLOG 300 UNITS/3 ML VIAL SC PRN ×4 (05:32→21:21)
[2020-07-12 05:54] LABS: ALT (SGPT) 110 U/L (8-55); AST (SGOT) 43 U/L (5-34); Albumin 2.8 g/dL (3.4-4.8); Alkaline Phosphatase 201 U/L (40-110); Anion Gap 19 mmol/L (10-20); BUN (Urea Nitrogen) 46 mg/dL (9.8-20.1); Bilirubin, Total 0.3 mg/dL (0.2-1.2); Calc. Creatinine Clearance 23 mL/min (70-130); Calcium 8.9 mg/dL (7.8-10.44); Carbon Dioxide 21 mmol/L (23-31); Chloride 105 mmol/L (98-107); Estimated GFR-MDRD 19; Globulin 2.8 g/dL (2.4-3.5); Glucose 252 mg/dL (83-110); Potassium 4.4 mmol/L (3.5-5.1); Protein, Total 5.6 g/dL (6.0-8.3); Sodium 141 mmol/L (136-145)
--- NOTE | 2020-07-12 06:31 | PDOC.FM ---
- Subjective Subjective: Patient reports mild abdominal pain, mentation status worse this AM. - Objective Vital Signs & Weight: Vital Signs (12 hours) Temp Pulse Resp BP Pulse Ox 07/12/20 04:16 98.4 F 85 20 163/72 H 97 07/11/20 23:21 97.7 F 81 20 157/58 H 99 07/11/20 20:00 96 07/11/20 19:13 98.4 F 79 20 162/75 H 96 Weight Weight 92.221 kg I&O: 07/10/20 07/11/20 07/12/20 06:59 06:59 06:59 Intake Total 1701 390 Output Total 1350 1250 Balance 351 -860 Result Diagrams: 07/12/20 04:53 07/12/20 04:53 Phys Exam - Physical Examination Constitutional: NAD Respiratory: no wheezing, no rales, no rhonchi, clear to auscultation bilateral Cardiovascular: RRR, no significant murmur, no rub Gastrointestinal: soft, no distention, positive bowel sounds mild diffuse tenderness worse in suprapubic and RUQ Deviation from normal: A&O X2 Dx/Plan - Plan Plan: Acute encephalopathy r/o CVA Present on admission. Likely 2/2 infection/delirium vs new CVA. DDx also includes medication side effects. Hx multiple strokes in the past. CT head/CTA head and neck negative for acute findings in ED. Initial NIH 7, repeat NIH 2 per ED evaluation. - treat infection as below - continue home ASA, plavix, statin for CVA - neuro checks - bedside swallow pending Suspected cholangitis Fever, transaminitis, abdominal pain. RUQ revealed 1.5 cm bile duct. - consulted GI, appreciate recommendations: MRCP shows sludge in CBD, cyst in pancreas, ERCP w/ sphincterotomy performed 07/11 - abx escalated to zosyn, rocephin discontinued - Consider deescalating abx to PO Omnicef UTI UA with significant bacteria, WBCs and suspected delirium as above. s/p rocephin in ED. Hx some resistant infections in past although most recent in 2019 sensitive to rocephin. - f/u urine cx - abx escalated to zosyn due to concern for cholangitis HEATHER with possible CKD Cr 3.5 with apparent baseline around 1.1 although this baseline is from early 2019. Very dry appearing on exam. s/p 1 L bolus in ED, additional bolus was not given yesterday. - hold fluids - strict I/O - FeNa 1.1%, likely intrinsic injury - avoid nephrotoxic drugs: hold home lisinopril, HCTZ, gabapentin - renal dosing of drugs - Consider restarting IVF given worsening SCr Transaminitis Possibly due to early sepsis although main concern at this time is that patient could have acute cholangitis. Negative hepatitis panel. - GI consulted and appreciate recs, mgmt as above - continue to monitor LFTs HFpEF Grade 2/3 diastolic dysfunction with EF 60-65% noted on echo from 2018. Clinically, does not appear to be volume overloaded. Appears very dry on exam and BNP is 65. - monitor fluid status closely Normocytic anemia Appears to be chronic on lab review. No signs of active bleeding. - continue to monitor - consider iron studies Hyponatremia, improving Na 130 on admission. Suspect due to poor oral intake. - fluid resuscitation as above - continue to monitor Hx multiple strokes Depakote in home med list, presumably for prophylaxis after multiple strokes. No documented history of seizures available and patient unable to give further history at this time. - no elevation of depakote level - continue home depakote LOS: likely > 48 hours, admit stroke Addendum - Attending - Attending Attestation Date/Time: 07/12/20 0467 I personally evaluated the patient and discussed the management with Dr. Leos I agree with the History, Examination, Assessment and Plan documented above with any addition or exceptions noted below - Patient c/o some epigastric pain. Denies N/V. Does not feel hungry Afebrile VSS A/P: 1) Transaminitis- resolving. 2) Ampullary stenosis- s/p ERCP with sphincterotomy - plan as per GI. 3) Deconditioning- start PT.
[2020-07-12] MEDS: Polyethylene Glycol 3350 17 GM Packet PO SCH (08:26)
[2020-07-12] MEDS: Aspirin 81 mg Enteric Coated Tablet PO SCH (08:26)
[2020-07-12] MEDS: Escitalopram Oxalate 20 mg Tablet PO SCH (08:26)
[2020-07-12] MEDS: Divalproex Sodium 125 mg Sprinkle Capsule PO SCH ×3 (08:26→16:39)
[2020-07-12] MEDS: Lactated Ringer's 1,000 ML IV SCH ×3 (10:29→21:17)
[2020-07-12] MEDS: Insulin Glargine 10 UNITS in Pre-Filled Syringe 1 EACH SC SCH (10:45)
--- NOTE | 2020-07-12 12:04 | PRG ---
DATE OF SERVICE: 07/12/2020 SUBJECTIVE: Ms. Cabrera has increased epigastric abdominal pain. No vomiting. OBJECTIVE: VITAL SIGNS: Temperature is 97.5, pulse 84, blood pressure 174/65. GENERAL: She is in no acute distress. LUNGS: Clear to auscultation bilaterally. HEART: Regular rate and rhythm without murmur. ABDOMEN: Soft, but tender throughout the upper abdomen. Bowel sounds are present. EXTREMITIES: No lower extremity edema. LABORATORY DATA: White blood cell count 7.4, hemoglobin 9.0, platelets 251. Creatinine 2.42, bilirubin 0.3, AST 43, ALT 110, alkaline phosphatase 201, albumin 2.8. IMPRESSION: 1. Ampullary stenosis, status post sphincterotomy. Her transaminases and alkaline phosphatase are trending down today. 2. Anemia. Her hemoglobin is stable today. However, given the large sphincterotomy, on Plavix recent use, we will need to monitor for bleeding from the sphincterotomy site. 3. Epigastric pain today. Lipase has been drawn and is pending to evaluate for post ERCP pancreatitis. RECOMMENDATIONS: 1. IV fluids. 2. Follow trend of her labs. 3. She is on a liquid diet for now. Job ID: [id number]
[2020-07-12] MEDS: Atorvastatin Calcium 40 MG TAB PO SCH (21:17)
[2020-07-13 05:36] LABS: #Eosinphils 0.2 thou/uL (0.0-0.7); #Lymphocytes 2.1 thou/uL (1.20-3.40); #Monocytes 0.8 thou/uL (0.11-0.59); %Basophils 0.4 % (0.0-1.0); %Eosinophils 2.2 % (0.0-10.0); %Lymphocytes 22.5 % (21.0-51.0); %Monocytes 9.1 % (0.0-10.0); %Neutrophils 65.7 % (42.0-75.0); Hemoglobin 8.4 g/dL (12.0-16.0); Mean Corpuscular HGB CONC 33.4 g/dL (32.0-36.0); Mean Corpuscular Volume 92.7 fL (78.0-98.0); Mean Platelet Volume 7.6 fL (7.4-10.4); Platelet Count 236 thou/uL (130-400); Red Blood Cell (RBC) Count 2.71 mill/uL (4.20-5.40); White Blood Cell (WBC) Count 9.2 thou/uL (4.8-10.8)
[2020-07-13] MEDS: HumaLOG 300 UNITS/3 ML VIAL SC PRN ×2 (05:50→16:20)
[2020-07-13 06:03] LABS: ALT (SGPT) 71 U/L (8-55); AST (SGOT) 29 U/L (5-34); Albumin 2.7 g/dL (3.4-4.8); Alkaline Phosphatase 163 U/L (40-110); Anion Gap 13 mmol/L (10-20); BUN (Urea Nitrogen) 40 mg/dL (9.8-20.1); Bilirubin, Total 0.3 mg/dL (0.2-1.2); Calc. Creatinine Clearance 26 mL/min (70-130); Calcium 8.7 mg/dL (7.8-10.44); Carbon Dioxide 25 mmol/L (23-31); Chloride 108 mmol/L (98-107); Estimated GFR-MDRD 22; Globulin 2.7 g/dL (2.4-3.5); Glucose 197 mg/dL (83-110); Potassium 3.9 mmol/L (3.5-5.1); Protein, Total 5.4 g/dL (6.0-8.3); Sodium 142 mmol/L (136-145)
--- NOTE | 2020-07-13 06:40 | PDOC.FM ---
- Subjective Subjective: Patient reports persistent abdominal pain in epigastric region. Otherwise no acute concerns. - Objective MAR Reviewed: Yes Vital Signs & Weight: Vital Signs (12 hours) Temp Pulse Resp BP Pulse Ox 07/13/20 04:41 98.1 F 72 20 163/73 H 96 07/12/20 23:34 98.4 F 65 20 176/71 H 94 L 07/12/20 19:08 98.9 F 66 20 178/65 H 94 L Weight Weight 92.221 kg I&O: 07/11/20 07/12/20 07/13/20 06:59 06:59 06:59 Intake Total 3083 338 6425 Output Total 1350 1250 450 Balance 351 -860 710 Result Diagrams: 07/13/20 05:13 07/13/20 05:13 Phys Exam - Physical Examination Constitutional: NAD Respiratory: no wheezing, no rales, no rhonchi, clear to auscultation bilateral Cardiovascular: RRR, no significant murmur, no rub Gastrointestinal: soft, positive bowel sounds Diffuse mild tenderness worse in epigastric RUQ region Dx/Plan - Plan Plan: Acute encephalopathy r/o CVA Present on admission. Likely 2/2 infection/delirium vs new CVA. DDx also includes medication side effects. Hx multiple strokes in the past. CT head/CTA head and neck negative for acute findings in ED. Initial NIH 7, repeat NIH 2 per ED evaluation. - treat infection as below - continue home ASA, plavix, statin for CVA - neuro checks - bedside swallow pending Hypertension - Home meds held 2/2 HEATHER, restart home meds this AM T2DM - A1c today - SSI Suspected cholangitis Fever, transaminitis, abdominal pain. RUQ revealed 1.5 cm bile duct. - consulted GI, appreciate recommendations: MRCP shows sludge in CBD, cyst in pancreas, ERCP w/ sphincterotomy performed 07/11 - DC Zosyn UTI UA with significant bacteria, WBCs and suspected delirium as above. s/p rocephin in ED. Hx some resistant infections in past although most recent in 2019 sensitive to rocephin. 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 - strict I/O - FeNa 1.1%, likely intrinsic injury - renal dosing of drugs Transaminitis Possibly due to early sepsis. Negative hepatitis panel. - improving - GI consulted and appreciate recs, mgmt as above - continue to monitor LFTs HFpEF Grade 2/3 diastolic dysfunction with EF 60-65% noted on echo from 2018. Clinically, does not appear to be volume overloaded. Appears very dry on exam and BNP is 65. - monitor fluid status closely Normocytic anemia Appears to be chronic on lab review. No signs of active bleeding. - continue to monitor - consider iron studies Hyponatremia, improving Na 130 on admission. Suspect due to poor oral intake. - fluid resuscitation as above - continue to monitor Hx multiple strokes Depakote in home med list, presumably for prophylaxis after multiple strokes. No documented history of seizures available and patient unable to give further history at this time. - no elevation of depakote level - continue home depakote LOS: likely > 48 hours, admitted to [facility], [place] pending GI recs with ERCP f/u Addendum - Attending - Attending Attestation Date/Time: 07/13/20 6103 I personally evaluated the patient and discussed the management with Dr. Leos I agree with the History, Examination, Assessment and Plan documented above with any addition or exceptions noted below - Patient without complaints. Refusing medications this morning. Daughter just arrived and discussed with her na dshe will work with nurse and patient to get meds taken. Afebrile VSS. A/P: 1) Ampullary stenosis s/p sphincterotomy - no further pain; will advance diet. Possible d/c in AM
[2020-07-13] MEDS: Lactated Ringer's 1,000 ML IV SCH ×2 (06:48→08:46)
[2020-07-13] MEDS: Divalproex Sodium 125 mg Sprinkle Capsule PO SCH ×5 (08:40→16:20)
[2020-07-13] MEDS: Lisinopril 20 MG TAB PO SCH ×2 (08:41→11:28)
[2020-07-13] MEDS: Cefdinir 300 MG CAP PO SCH ×2 (08:41→11:29)
[2020-07-13] MEDS: Hydrochlorothiazide 25 MG TAB PO SCH ×2 (08:41→11:28)
[2020-07-13] MEDS: Clopidogrel Bisulfate 75 MG TAB PO SCH ×2 (08:41→11:29)
[2020-07-13] MEDS: Escitalopram Oxalate 20 mg Tablet PO SCH ×2 (08:42→11:29)
[2020-07-13] MEDS: Aspirin 81 mg Enteric Coated Tablet PO SCH ×2 (08:42→11:27)
[2020-07-13] MEDS: Polyethylene Glycol 3350 17 GM Packet PO SCH ×2 (08:43→11:30)
[2020-07-13 08:52] LABS: Hemoglobin A1c 7.5 % (4.0-6.0)
[2020-07-13] MEDS: Insulin Glargine 10 UNITS in Pre-Filled Syringe 1 EACH SC SCH (11:30)
[2020-07-13] MEDS: Labetalol HCl 100 MG/20 ML VIAL SLOW IVP PRN ×2 (12:43→16:25)
--- NOTE | 2020-07-13 13:58 | PRG ---
DATE OF SERVICE: 07/13/2020 REASON FOR CONSULTATION: Elevated LFTs/ampullary stenosis, status post sphincterotomy. SUBJECTIVE: Overnight, the patient did not have any acute events or problems. She denies having had a bowel movement over the last 24 hours and she also complains of continued abdominal pain, but relatively unchanged from yesterday. However, the patient does have dementia at baseline, and when I asked the sensorium question, she refused to answer. She also refused to answer any review of systems questions as well. OBJECTIVE: VITAL SIGNS: Temperature 98.3, pulse 78, blood pressure 196/82, respiratory rate 18, saturating 95% on room air. GENERAL: The patient was lying in bed, in no acute distress. Alert and oriented x1. CARDIOVASCULAR: Regular rate and rhythm. RESPIRATORY: Clear to auscultation bilaterally. ABDOMEN: Normoactive bowel sounds. Soft, nondistended. Tenderness to palpation to both light and deep palpation in all abdominal quadrants, but I could not be reproduce these pains with distraction (and at times, she said she was having pain before I even touched her abdomen). EXTREMITIES: No cyanosis, clubbing, or edema. LABORATORY DATA: CBC with a white blood cell count of 9.2, hemoglobin 8.4, hematocrit 25.1, platelets 236. Chemistry with sodium of 142, potassium 3.9, chloride 108, CO2 of 25, BUN 40, creatinine 2.16, glucose 197, AST 29, ALT 71, alkaline phosphatase 163, total bilirubin 0.3. IMAGING DATA: No current GI imaging is available for review. ASSESSMENT AND PLAN: The patient is an 89-year-old female with past medical history of hypertension, diabetes, coronary artery disease with diastolic dysfunction, and multiple strokes with vascular dementia, presenting with fever and elevated LFTs with ERCP showing ampullary stenosis. Elevated LFTs/abdominal pain. The patient initially presented to the hospital with fever and elevated LFTs that was initially concerning for choledocholithiasis and ascending cholangitis; however, the patient underwent ERCP on July 11, 2020, which showed significantly increased tone at the sphincter of Oddi, more indicative of ampullary stenosis. Ultimately, a sphincterotomy was performed with the drainage of bile seen at the end of the procedure. Since that time, she has been having downtrending LFTs and slightly improvement of her abdominal pain, although it is difficult to assess based on the patient's dementia because she is stating that she has pain, but it is not reproducible on distraction exam. She also had a normal lipase that was performed yesterday, making the likelihood of post ERCP pancreatitis much less so. At this point, it sounds like the patient does not have any evidence of post ERCP pancreatitis with ampullary stenosis now, status post sphincterotomy and almost normalization of her LFTs. RECOMMENDATIONS: 1. Would advance her diet to a carb controlled diet and assess for any increase in her abdominal pain. 2. Continue to trend her LFTs to monitor response to sphincterotomy. 3. Would continue to trend her hemoglobin and hematocrit and transfuse as necessary to maintain hemoglobin and hematocrit of 7/21, especially in light of anticoagulation used after the sphincterotomy. 4. Continue to monitor clinically for signs of active GI bleeding. We will sign off at this time. Please call with any additional questions again. Job ID: [id number]
--- NOTE | 2020-07-13 19:30 | EKG ---
Test Reason : CP Blood Pressure : / mmHG Vent. Rate : 091 BPM Atrial Rate : 091 BPM P-R Int : 158 ms QRS Dur : 138 ms QT Int : 388 ms P-R-T Axes : 000 -05 034 degrees QTc Int : 477 ms Normal sinus rhythm Right bundle branch block Abnormal ECG When compared with ECG of 09-JUL-2020 09:32, (Unconfirmed) Fusion complexes are no longer Present Criteria for Inferior infarct are no longer Present Confirmed by VAISHNAVI SULLIVAN, DR. York ([id number]) on 07/13/2020 7:30:20 PM Referred By: DEANGELO Confirmed By:DR. Chela RIGGINS MD
[2020-07-13] MEDS: Atorvastatin Calcium 40 MG TAB PO SCH (20:09)
[2020-07-14] MEDS: Labetalol HCl 100 MG/20 ML VIAL SLOW IVP PRN ×4 (00:13→21:30)
[2020-07-14] MEDS: Lactated Ringer's 1,000 ML IV SCH ×3 (00:17→21:31)
[2020-07-14] MEDS: HumaLOG 300 UNITS/3 ML VIAL SC PRN ×3 (05:56→17:32)
[2020-07-14 06:03] LABS: #Basophils 0.1 thou/uL (0.0-0.2); #Eosinphils 0.1 thou/uL (0.0-0.7); #Lymphocytes 1.7 thou/uL (1.20-3.40); #Neutrophils 5.7 thou/uL (1.40-6.50); %Basophils 0.8 % (0.0-1.0); %Eosinophils 1.6 % (0.0-10.0); %Monocytes 11.4 % (0.0-10.0); %Neutrophils 66.3 % (42.0-75.0); Hemoglobin 8.9 g/dL (12.0-16.0); Mean Corpuscular HGB CONC 32.6 g/dL (32.0-36.0); Mean Corpuscular Hemoglobin 30.3 pg (27.0-31.0); Platelet Count 239 thou/uL (130-400); Red Blood Cell (RBC) Count 2.93 mill/uL (4.20-5.40); White Blood Cell (WBC) Count 8.6 thou/uL (4.8-10.8)
[2020-07-14] MEDS ORDERED: Polyethylene Glycol 3350 17 GM Packet PO PRN (06:21)
[2020-07-14 06:24] LABS: ALT (SGPT) 56 U/L (8-55); AST (SGOT) 28 U/L (5-34); Albumin 2.9 g/dL (3.4-4.8); Alkaline Phosphatase 156 U/L (40-110); Anion Gap 13 mmol/L (10-20); BUN (Urea Nitrogen) 28 mg/dL (9.8-20.1); Bilirubin, Total 0.5 mg/dL (0.2-1.2); Calc. Creatinine Clearance 32 mL/min (70-130); Calcium 8.6 mg/dL (7.8-10.44); Carbon Dioxide 25 mmol/L (23-31); Chloride 105 mmol/L (98-107); Estimated GFR-MDRD 27; Globulin 2.7 g/dL (2.4-3.5); Glucose 189 mg/dL (83-110); Potassium 3.7 mmol/L (3.5-5.1); Protein, Total 5.6 g/dL (6.0-8.3); Sodium 139 mmol/L (136-145)
[2020-07-14] MEDS: Lisinopril 20 MG TAB PO SCH (08:56)
[2020-07-14] MEDS: Insulin Glargine 10 UNITS in Pre-Filled Syringe 1 EACH SC SCH (08:58)
[2020-07-14] MEDS: Divalproex Sodium 125 mg Sprinkle Capsule PO SCH ×3 (08:58→17:27)
[2020-07-14] MEDS: Clopidogrel Bisulfate 75 MG TAB PO SCH (08:58)
[2020-07-14] MEDS: Aspirin 81 mg Enteric Coated Tablet PO SCH (08:58)
[2020-07-14] MEDS: Cefdinir 300 MG CAP PO SCH (08:58)
[2020-07-14] MEDS: Escitalopram Oxalate 20 mg Tablet PO SCH (08:58)
[2020-07-14] MEDS: Hydrochlorothiazide 25 MG TAB PO SCH (08:58)
--- NOTE | 2020-07-14 09:38 | PDOC.FM ---
- Subjective Subjective: Patient reports doing well, ready to leave. denies abdominal pain. - Objective Vital Signs & Weight: Vital Signs (12 hours) Temp Pulse Resp BP BP BP Pulse Ox 07/14/20 08:56 195/80 H 07/14/20 08:00 98.5 F 80 18 95/80 97 07/14/20 04:40 98.9 F 77 20 168/68 H 92 L 07/14/20 00:13 80 190/85 H 07/14/20 00:00 99.1 F 80 20 190/85 H 92 L Weight Weight 92.221 kg I&O: 07/13/20 07/14/20 07/15/20 06:59 06:59 06:59 Intake Total 1160 1520 Output Total 450 Balance 710 1520 Result Diagrams: 07/14/20 05:27 07/14/20 05:27 Phys Exam - Physical Examination Constitutional: NAD Respiratory: no wheezing, no rales, no rhonchi Cardiovascular: RRR, no significant murmur, no rub Gastrointestinal: soft, no distention, positive bowel sounds mild TTP Musculoskeletal: no edema, pulses present Neurological: non-focal, moves all 4 limbs Dx/Plan - Plan Plan: Acute encephalopathy r/o CVA Present on admission. Likely 2/2 infection/delirium vs new CVA. DDx also includes medication side effects. Hx multiple strokes in the past. CT head/CTA head and neck negative for acute findings in ED. Initial NIH 7, repeat NIH 2 per ED evaluation. - treat infection as below - continue home ASA, plavix, statin for CVA - neuro checks Hypertension - Home meds held 2/2 HEATHER, restart home meds this AM T2DM - A1c today - SSI Suspected cholangitis Fever, transaminitis, abdominal pain. RUQ revealed 1.5 cm bile duct. - consulted GI, appreciate recommendations: MRCP shows sludge in CBD, cyst in pancreas, ERCP w/ sphincterotomy performed 07/11 - DC Zosyn UTI UA with significant bacteria, WBCs and suspected delirium as above. s/p rocephin in ED. Hx some resistant infections in past although most recent in 2019 sensitive to rocephin. 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 - strict I/O - FeNa 1.1%, likely intrinsic injury - renal dosing of drugs Transaminitis Possibly due to early sepsis. Negative hepatitis panel. - improving - GI consulted and appreciate recs, mgmt as above - continue to monitor LFTs HFpEF Grade 2/3 diastolic dysfunction with EF 60-65% noted on echo from 2018. Clinically, does not appear to be volume overloaded. Appears very dry on exam and BNP is 65. - monitor fluid status closely Normocytic anemia Appears to be chronic on lab review. No signs of active bleeding. - continue to monitor - consider iron studies Hyponatremia, improving Na 130 on admission. Suspect due to poor oral intake. - fluid resuscitation as above - continue to monitor Hx multiple strokes Depakote in home med list, presumably for prophylaxis after multiple strokes. No documented history of seizures available and patient unable to give further history at this time. - no elevation of depakote level - continue home depakote LOS: Likely DC today if diet is tolerated Addendum - Attending - Attending Attestation Date/Time: 07/14/20 1650 I personally evaluated the patient and discussed the management with Dr. Leos I agree with the History, Examination, Assessment and Plan documented above with any addition or exceptions noted below - Patient without complaints. Afebrile VSS. A/P: 1) Transaminitis- resolved. 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 Plan to transfer to [place] today. .
[2020-07-14] MEDS: Atorvastatin Calcium 40 MG TAB PO SCH (21:30)
[2020-07-15] MEDS: Labetalol HCl 100 MG/20 ML VIAL SLOW IVP PRN (01:10)
--- NOTE | 2020-07-15 02:18 | DIS ---
DATE OF ADMISSION: 07/09/2020 DATE OF DISCHARGE: 07/15/2020 RESIDENT: Jeremy Leos MD DISCHARGE ATTENDING DOCTOR: Su Castano MD CONSULTS: FABBY, Dr. Jaramillo on 07/10. PROCEDURES: MRCP showing sludge in the distal common bile duct and 1.7 cm cystic abnormality in pancreatic body. Renal ultrasound showed no evidence for hydronephrosis. Right upper quadrant ultrasound showed biliary duct dilation about 1.5 cm. Brain MRI showed no acute intracranial abnormality or evidence for acute stroke with chronic ischemic changes and a partially calcified meningioma overlying left frontal lobe near the vertex. ERCP performed 07/11, by Dr. Jaramillo with sphincterotomy performed. PRIMARY DIAGNOSIS: Acute encephalopathy, likely due to urinary tract infection. SECONDARY DIAGNOSES: Transaminitis, urinary tract infection, acute kidney injury on chronic kidney disease, heart failure with preserved ejection fraction, normocytic anemia, hyponatremia, history of multiple cerebrovascular accidents. DISCHARGE MEDICATIONS: 1. Atorvastatin 40 mg p.o. nightly. 2. Cefdinir 300 mg p.o. daily for eight days. 3. Plavix 75 mg p.o. daily. 4. Diltiazem 240 mg p.o. p.r.n., consider switching to daily as outpatient. 5. Lexapro 20 mg p.o. daily. 6. Hydrochlorothiazide 25 mg p.o. daily. 7. Lisinopril 20 mg p.o. daily. 8. MiraLax 17 g packet p.o. daily p.r.n. 9. Aspirin 81 mg p.o. daily. 10. Clonidine 0.1 mg tablet p.o. p.r.n. 11. Depakote Sprinkle one capsule p.o. t.i.d. 12. Neurontin 2 tablets p.o. daily. 13. 20 units subcu insulin glargine daily. 14. Lactobacillus one tablet p.o. daily. 15. Senna one tablet p.o. daily 8.6 mg. DISCONTINUED MEDICATIONS: None. HISTORY OF PRESENT ILLNESS/HOSPITAL COURSE: The patient is an 89-year-old female with past medical history of multiple strokes, meningioma, diabetes, and hypertension, who presented to the ED via EMS from [facility] for new onset weakness and left sided facial weakness. At the time of admission, patient was altered and reports obtained per daughter. Per daughter, last known normal was around 4:00 a.m. with the ER visit being approximately noon. The patient was A and O x1 on arrival. Upon admission, patient was noted to have transaminitis with AST 655, ALT 343, alkaline phosphatase 337, total bilirubin of 0.4. Urinalysis concerning for infection with bacteria, white blood cells, red blood cells, leukocyte esterase. The patient was started on Rocephin at that time. Dr. Clint SEQUEIRA was consulted on 07/10 and recommended MRCP due to transaminitis. MRCP showed sludge in common bile duct after right upper quadrant ultrasound in the ED showed common bile duct dilation to 1.5 cm. The patient does have history of cholecystectomy. GI then discussed with family and it was decided to do an ERCP. A sphincterotomy was performed during the ERCP. Transaminitis has declined every day since admission. The patient has had stable vital signs, however, has been refusing blood pressure medicines intermittently leading to hypertension with systolic blood pressures in the 180 to 190s and diastolic into the 90s to 100s at times. Hemoglobin was stable near 8-9, LFTs approaching normal ranges by day of discharge. Post sphincterotomy, GI recommended to keep hemoglobin above 7 and hematocrit above 21 given large sphincterotomy done and patient's history of CVA on aspirin and Plavix. The patient will be continued on Cefdinir for eight days for treatment of UTI. Cefdinir is renally dosed 300 mg p.o. daily. The patient was tolerating consistent carbohydrate diet on the day of discharge. Patient was ready to be discharged 07/14, however NH placement required 1 more day of stay. DISPOSITION: Stable. DISCHARGE INSTRUCTIONS: 1. Location: [facility]. 2. Diet: Diabetic diet, heart healthy. 3. Activity: As tolerated. 4. Followup: Patient is to follow up with PCP within one week. Consider repeating CBC and CMP to monitor hemoglobin, hematocrit, and liver enzymes. Job ID: [id number] [facility]
[2020-07-15 09:05] LABS: #Eosinphils 0.2 thou/uL (0.0-0.7); #Lymphocytes 1.4 thou/uL (1.20-3.40); #Monocytes 0.8 thou/uL (0.11-0.59); #Neutrophils 7.3 thou/uL (1.40-6.50); %Basophils 0.2 % (0.0-1.0); %Eosinophils 2.1 % (0.0-10.0); %Lymphocytes 14.5 % (21.0-51.0); %Monocytes 8.5 % (0.0-10.0); %Neutrophils 74.8 % (42.0-75.0); Hemoglobin 9.6 g/dL (12.0-16.0); Mean Corpuscular HGB CONC 33.8 g/dL (32.0-36.0); Mean Corpuscular Hemoglobin 31.4 pg (27.0-31.0); Mean Corpuscular Volume 93.1 fL (78.0-98.0); Mean Platelet Volume 7.7 fL (7.4-10.4); Platelet Count 250 thou/uL (130-400); RBC Distribution Width 13.1 % (11.5-14.5); Red Blood Cell (RBC) Count 3.06 mill/uL (4.20-5.40); White Blood Cell (WBC) Count 9.8 thou/uL (4.8-10.8)
[2020-07-15 09:25] LABS: ALT (SGPT) 44 U/L (8-55); AST (SGOT) 22 U/L (5-34); Alkaline Phosphatase 146 U/L (40-110); Anion Gap 13 mmol/L (10-20); BUN (Urea Nitrogen) 18 mg/dL (9.8-20.1); Bilirubin, Total 0.6 mg/dL (0.2-1.2); Calc. Creatinine Clearance 35 mL/min (70-130); Calcium 8.7 mg/dL (7.8-10.44); Carbon Dioxide 26 mmol/L (23-31); Chloride 106 mmol/L (98-107); Estimated GFR-MDRD 30; Globulin 2.8 g/dL (2.4-3.5); Glucose 160 mg/dL (83-110); Potassium 3.6 mmol/L (3.5-5.1); Protein, Total 5.8 g/dL (6.0-8.3); Sodium 141 mmol/L (136-145)
[2020-07-15] MEDS: Hydrochlorothiazide 25 MG TAB PO SCH (09:34)
[2020-07-15] MEDS: Lisinopril 20 MG TAB PO SCH (09:34)
[2020-07-15] MEDS: Divalproex Sodium 125 mg Sprinkle Capsule PO SCH ×2 (09:36→13:27)
[2020-07-15] MEDS: Clopidogrel Bisulfate 75 MG TAB PO SCH (09:37)
[2020-07-15] MEDS: Cefdinir 300 MG CAP PO SCH (09:37)
[2020-07-15] MEDS: Escitalopram Oxalate 20 mg Tablet PO SCH (09:37)
[2020-07-15] MEDS: Aspirin 81 mg Enteric Coated Tablet PO SCH (09:37)
[2020-07-15] MEDS: Insulin Glargine 10 UNITS in Pre-Filled Syringe 1 EACH SC SCH (10:32)
[2020-07-15 10:59] VITALS: BP 188/93; TEMP 100.1
--- NOTE | 2020-07-15 11:44 | PDOC.FM ---
- Subjective Subjective: Patient with no acute concerns today, doing well. - Objective Vital Signs & Weight: Vital Signs (12 hours) Temp Pulse Resp BP BP Pulse Ox 07/15/20 10:58 100.1 F H 78 18 188/93 H 96 07/15/20 09:37 74 07/15/20 09:34 182/77 H 07/15/20 07:08 98.2 F 74 18 138/70 96 07/15/20 04:00 98.2 F 76 18 177/103 H 95 07/15/20 01:10 79 07/15/20 00:00 98.4 F 79 18 193/81 H 94 L Weight Weight 92.221 kg I&O: 07/14/20 07/15/20 07/16/20 06:59 06:59 06:59 Intake Total 1520 1580 Balance 1520 1580 Result Diagrams: 07/15/20 08:41 07/15/20 08:41 Phys Exam - Physical Examination Constitutional: NAD Respiratory: no wheezing, no rales, no rhonchi Cardiovascular: RRR, no significant murmur, no rub Gastrointestinal: soft, non-tender, no distention, positive bowel sounds Dx/Plan - Plan Plan: Acute encephalopathy r/o CVA Present on admission. Likely 2/2 infection/delirium vs new CVA. DDx also includes medication side effects. Hx multiple strokes in the past. CT head/CTA head and neck negative for acute findings in ED. Initial NIH 7, repeat NIH 2 per ED evaluation. - treat infection as below - continue home ASA, plavix, statin for CVA - neuro checks Hypertension - home meds this AM, change Diltiazem to daily given persistent HTN T2DM - A1c today - SSI Suspected cholangitis Fever, transaminitis, abdominal pain. RUQ revealed 1.5 cm bile duct. - consulted GI, appreciate recommendations: MRCP shows sludge in CBD, cyst in pancreas, ERCP w/ sphincterotomy performed 07/11 - DC Zosyn UTI UA with significant bacteria, WBCs and suspected delirium as above. s/p rocephin in ED. Hx some resistant infections in past although most recent in 2019 sensitive to rocephin. 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 - strict I/O - FeNa 1.1%, likely intrinsic injury - renal dosing of drugs Transaminitis Possibly due to early sepsis. Negative hepatitis panel. - improving - GI consulted and appreciate recs, mgmt as above - continue to monitor LFTs HFpEF Grade 2/3 diastolic dysfunction with EF 60-65% noted on echo from 2018. Clinically, does not appear to be volume overloaded. Appears very dry on exam an d BNP is 65. - monitor fluid status closely Normocytic anemia Appears to be chronic on lab review. No signs of active bleeding. - continue to monitor - consider iron studies Hyponatremia, improving Na 130 on admission. Suspect due to poor oral intake. - fluid resuscitation as above - continue to monitor Hx multiple strokes Depakote in home med list, presumably for prophylaxis after multiple strokes. No documented history of seizures available and patient unable to give further history at this time. - no elevation of depakote level - continue home depakote LOS: DC pending [place] acceptance Addendum - Attending - Attending Attestation Date/Time: 07/15/20 3862 I personally evaluated the patient and discussed the management with Dr. Leos I agree with the History, Examination, Assessment and Plan documented above with any addition or exceptions noted below - Patient sitting in bed. Refused medications this morning. Afebrile VSS. A/P: 1) Biliary stenosis s/p s phincterotomy- tolerating diet; transaminitis resolved. 2) HTN continue home meds. Stable for discharge.
--- NOTE | 2020-07-16 14:35 | EKG ---
Test Reason : Blood Pressure : / mmHG Vent. Rate : 088 BPM Atrial Rate : 088 BPM P-R Int : 176 ms QRS Dur : 142 ms QT Int : 404 ms P-R-T Axes : 008 -29 042 degrees QTc Int : 488 ms Sinus rhythm with Fusion complexes Right bundle branch block Inferior infarct , age undetermined Abnormal ECG Confirmed by KRYSTA TOVAR M.D. ([id number]), video effects editor CARLENE BOOTHE ([id number]) on 07/16/2020 2:35:01 PM Referred By: Confirmed By:KRYSTA TOVAR M.D.
--- NOTE | 2020-07-17 21:46 | PQF ---
CLINICAL DOCUMENTATION CLARIFICATION FORM: Dear : Su Castano Date / Time: 07/18/2020 3093 Please exercise your independent, professional judgment in responding to the clarification form. Clinical indicators are provided on the bottom of this form for your review In your clinical opinion based on clinical findings below, can you please specify Acute Encephalopathy if: Please check appropriate box(es): [ ] Metabolic [ ] Toxic [ ] Other (please specify) [ ] Unable to determine Physician Signature: Date/Time: For continuity of documentation, please document condition throughout progress notes and discharge summary. Thank You To be completed by CDI/Coding staff for physician review: Present Clinical Indicators - Signs / Symptoms / Labs Results and Location in Medical Record [X] BP 154/68, Pulse 82, Resp 20, Temp 98.4 Vital signs 07/09 [X] Urinalysis: pH5.0, Ketones Trace, RBC >50, WBC 50>, Bacteria 4+ A Laboratory 07/09 [X] Urine culture : Escherichia Coli Microbiology 07/09 [X] pt oriented only to self, she is not oriented to place or year H&P p1 07/09 Dr Rehg [X] Altered mental status H&P p2 07/09 Dr Rehg [X] Acute Encephalopathy r/o CVA H&P p4 07/09 Dr Rehg [X] HEATHER on CKD H&P p5 07/09 Dr Rehg [X] Transaminitis H&P p6 07/09 Dr Rehg [X] Suspect Acute CVA vs Encephlaopathy 2/2 UTI H&P p6 07/09 Dr Gallegosg Present Risk Factors Results and Location in Medical Record [X] 89 year-old Female H&P p1 07/09 Dr Rehg [X] Hx of stroke H&P p1 07/09 Dr Rehg [X] Vascular dementia H&P p1 07/09 Dr Rehg [X] HTN H&P p1 07/09 Dr Rehg [X] DM H&P p1 07/09 Dr Rehg [X] CHF H&P 07/09 Dr Rehg [X] CKD H&P p1 07/09 Dr Glalegosg Present Treatments Results and Location in Medical Record [X] IVF NS 1L NOV 16 [X] IV Zosyn 2.25 gm MAR 11/1 [X] IVF Lactated Ringerfs 1L MAR 07/09 [X] Urinalysis Laboratory 07/09 [X] Urine culture Microbiology 07/09 [X] Neuro check q4 H&P p6 07/09 Dr Olson CDS/Seafood Service Team Member Signature: Sommer Kaur Phone #: ext [phone] Date/Time: 07/17/2020 8129 This is a permanent part of the Medical Record [facility]
--- NOTE | 2020-07-18 04:18 | PQF ---
CLINICAL DOCUMENTATION CLARIFICATION FORM: Dear : Su Castano Date / Time: 07/18/2020 0417 Please exercise your independent, professional judgment in responding to the clarification form. Clinical indicators are provided on the bottom of this form for your review Please check appropriate box(es) to clarify if the following diagnosis has been ruled in our ruled out: Sepsis [ ] Ruled in diagnosis [ ] Continue to treat [ ] Resolved [ ] Ruled out diagnosis [ ] Improving [ ] Cannot rule out diagnosis [ ] Other diagnosis [ ] Unable to determine In addition, please specify: Present on Admission (POA): [ ] Yes [ ] No [ ] Unable to determine Physician Signature: Date/Time: For continuity of documentation, please document condition throughout progress notes and discharge summary. Thank You. To be completed by CDI/Coding staff for physician review: Present Clinical Indicators - Signs / Symptoms / Labs Results and Location in Medical Record [X] BP 157/67, Pulse 90, Resp 14, Temp 101.0 Vital signs 07/09 [X] BP 131/51, Pulse 97, Resp 14, Temp 100.5 Vital signs 07/10 [X] WBC 8.8, Plt count 219, Neutrophils 75.0, Lactic acid Laboratory 07/09 [X] Blood culture : no growth in 5 days Microbiology 07/09 [X] Urine Culture : [place] Coli Microbiology 07/09 [X] Differential diagnosis considered, sepsis, UTI ED notes p10 07/09 [X] UTI H&P p4 07/09 Dr Olson [X] No evidence of sepsis as pt is afebrile, no leukocytosis, VSS H&P p7 07/09 Dr Olson [X] Fever could be explaned just by urinary infection, the biliary dilation by her prior cholecystectomy and age, and th eLFT elevation by early Sepsis Consult p3 07/10 Case Present Risk Factors Results and Location in Medical Record [X] 89 year-old Female H&P p1 07/09 DR Olson [X] DM H&P p1 07/09 Dr Olson [X] HTN H&P p1 07/09 Dr Olson [X] Hx of strokes H&P p1 07/09 Dr Olson [X] Former Smoker H&P p1 07/09 Dr Olson [X] UTI H&P p4 07/09 Dr Olson Present Treatments Results and Location in Medical Record [X] IV Ceftriaxone 2 gm NOV 16 [X] IV Lactated Ringers 1L NOV 16 [X] IV Zosyn 2.25 gm NOV 17 [X] IVF NS 1L NOV 16 [X] Blood culture Microbiology 07/09 [X] Urine Culture Microbiology 07/09 CDS/Outsole Molder Signature: Sommer Kaur Phone #: ext [phone] Date/Time: 07/18/2020 0417 This is a permanent part of the Medical Record [facility]
== END 2020-07-15 13:02 | DRG 682 ==
LOC: ERS 09:02 → ERHOLD 13:35 → UNDOADMIN 13:36 → 2SE 20:57 → T4-B 07-11 15:13
PROVIDERS: ADMIT Student in an Organized Health Care Education/Training Program; ATTEND Student in an Organized Health Care Education/Training Program
PROC: 0F7C8ZZ Dilation of Ampulla of Vater, Via Natural or Artificial Opening Endoscopic (ICD-10-PCS; principal; 2020-07-11)
DX: N17.9 Acute kidney failure, unspecified (principal); K83.1 Obstruction of bile duct; N30.00 Acute cystitis without hematuria; I50.32 Chronic diastolic (congestive) heart failure; E87.1 Hypo-osmolality and hyponatremia; I13.0 Hypertensive heart and chronic kidney disease with heart failure and stage 1 through stage 4 chronic kidney disease, or unspecified chronic kidney disease; K86.2 Cyst of pancreas; G93.49 Other encephalopathy; D63.1 Anemia in chronic kidney disease; E11.22 Type 2 diabetes mellitus with diabetic chronic kidney disease; I25.10 Atherosclerotic heart disease of native coronary artery without angina pectoris; R74.01 Elevation of levels of liver transaminase levels; N18.30 Chronic kidney disease, stage 3 unspecified; D32.0 Benign neoplasm of cerebral meninges; Z20.828 Contact with and (suspected) exposure to other viral communicable diseases; F01.50 Vascular dementia, unspecified severity, without behavioral disturbance, psychotic disturbance, mood disturbance, and anxiety; I69.318 Other symptoms and signs involving cognitive functions following cerebral infarction; Z88.5 Allergy status to narcotic agent; Z79.899 Other long term (current) drug therapy; Z79.82 Long term (current) use of aspirin; Z79.4 Long term (current) use of insulin; Z86.011 Personal history of benign neoplasm of the brain; Z90.49 Acquired absence of other specified parts of digestive tract; Z87.891 Personal history of nicotine dependence; Z87.440 Personal history of urinary (tract) infections
CPT/HCPCS: 36415; 36416; 51701; 70450; 70496; 70498; 70551; 71045; 74176; 74181; 74330; 76705; 76770; 80053; 80074; 80164; 81003; 81015; 82550; 82553; 82570; 83036; 83605; 83690; 83880; 84145; 84300; 84484; 85025; 85610; 85730; 87040; 87077; 87086; 87186; 87635; 93005; 93010; 96365; C1769; J0696; J1100; J1610; J1644; J1815; J2405; J2543; J2704; J3010; J3490; Q9967; U0002; U0003

== ENCOUNTER 2021-05-11 13:53 | Inpatient (IN) | payer MEDICARE, MEDICAID ==
[2021-05-11 15:49] LABS: #Lymphocytes 2.9 thou/uL (1.20-3.40); #Monocytes 0.4 thou/uL (0.11-0.59); %Basophils 0.2 % (0.0-1.0); %Eosinophils 0.2 % (0.0-10.0); %Lymphocytes 31.3 % (21.0-51.0); %Neutrophils 64.3 % (42.0-75.0); Hemoglobin 9.8 g/dL (12.0-16.0); Mean Corpuscular HGB CONC 31.4 g/dL (32.0-36.0); Mean Corpuscular Hemoglobin 27.8 pg (27.0-31.0); Mean Corpuscular Volume 88.4 fL (78.0-98.0); Platelet Count 222 thou/uL (130-400); RBC Distribution Width 13.7 % (11.5-14.5); Red Blood Cell (RBC) Count 3.54 mill/uL (4.20-5.40); White Blood Cell (WBC) Count 9.3 thou/uL (4.8-10.8)
[2021-05-11 16:00] LABS: ALT (SGPT) 9 U/L (8-55); AST (SGOT) 25 U/L (5-34); Albumin 2.8 g/dL (3.4-4.8); Alkaline Phosphatase 68 U/L (40-110); Anion Gap 17 mmol/L (10-20); BUN (Urea Nitrogen) 35 mg/dL (9.8-20.1); Bilirubin, Total 0.3 mg/dL (0.2-1.2); CRP (Inflammatory) 5.69 mg/dL (= or < 0.5); Calc. Creatinine Clearance 0 mL/min (70-130); Calcium 8.1 mg/dL (7.8-10.44); Carbon Dioxide 24 mmol/L (23-31); Chloride 111 mmol/L (98-107); Globulin 2.8 g/dL (2.4-3.5); Glucose 189 mg/dL (83-110); Potassium 3.7 mmol/L (3.5-5.1); Protein, Total 5.6 g/dL (5.8-8.1); Sodium 148 mmol/L (136-145)
[2021-05-11 16:33] LABS: CKMB 1.2 ng/mL (0-6.6)
[2021-05-11 16:45] LABS: SARS-CoV-2 NAA Rapid Test DETECTED (NotDetected)
[2021-05-11] MEDS ORDERED: Dexamethasone 10 MG/ML VIAL ONE (17:55)
[2021-05-11 18:56] LABS: Lactic Acid 2.8 mmol/L (0.5-2.2)
[2021-05-11] MEDS ORDERED: Ondansetron ODT 4 MG TAB SL PRN (21:00)
[2021-05-11] MEDS ORDERED: Ondansetron PF 4 MG/2 ML Vial IVP PRN (21:00)
[2021-05-11] MEDS ORDERED: Acetaminophen 325 MG TAB PO PRN ×2 (21:00→22:21)
[2021-05-11] MEDS ORDERED: D5 1/4 NS 1,000 ML IV SCH (22:00)
[2021-05-11 22:14] LABS: Troponin I 0.138 ng/mL (< 0.028)
[2021-05-11] MEDS ORDERED: Dextrose 50% Abboject 50 ML SYRINGE SLOW IVP PRN (22:21)
[2021-05-11] MEDS ORDERED: Dextrose 5% in Water 1,000 ML IV PRN (22:21)
[2021-05-11] MEDS ORDERED: HumaLOG 300 UNITS/3 ML VIAL SC PRN (22:21)
[2021-05-11] MEDS ORDERED: Benzonatate 100 MG CAP PO PRN (22:30)
[2021-05-12 02:34] LABS: CO2 Tension 41.7 mmHg (35.0-45.0)
[2021-05-12 02:35] LABS: Actual Bicarbonate (HCO3a) 20.1 mEq/L (22-28); Base Excess (BEa) -5.9 mEq/L (-2.0 to +3.0); O2 Tension (PaO2), arterial 55.8 mmHg (> 60.0)
[2021-05-12 02:36] LABS: Calcium, Ionized (arterial) 1.16 mmol/L (1.12-1.30); Carboxyhemoglobin (COHb) 0.3 gm% (0.0-3.0)
[2021-05-12 02:37] LABS: ALV-art Gradient 120.235 mmHg (0-20)
[2021-05-12 04:35] LABS: #Lymphocytes 0.4 thou/uL (1.20-3.40); #Monocytes 0.3 thou/uL (0.11-0.59); #Neutrophils 6.7 thou/uL (1.40-6.50); %Eosinophils 0.2 % (0.0-10.0); %Lymphocytes 5.1 % (21.0-51.0); %Monocytes 3.7 % (0.0-10.0); Hemoglobin 8.2 g/dL (12.0-16.0); Mean Corpuscular HGB CONC 32.1 g/dL (32.0-36.0); Mean Corpuscular Hemoglobin 28.3 pg (27.0-31.0); Mean Corpuscular Volume 88.2 fL (78.0-98.0); Platelet Count 177 thou/uL (130-400); RBC Distribution Width 13.8 % (11.5-14.5); White Blood Cell (WBC) Count 7.4 thou/uL (4.8-10.8)
[2021-05-12 05:02] LABS: Anion Gap 11 mmol/L (10-20); BUN (Urea Nitrogen) 42 mg/dL (9.8-20.1); Calc. Creatinine Clearance 15 mL/min (70-130); Calcium 7.8 mg/dL (7.8-10.44); Carbon Dioxide 23 mmol/L (23-31); Chloride 110 mmol/L (98-107); Glucose 465 mg/dL (83-110); Potassium 3.8 mmol/L (3.5-5.1); Sodium 140 mmol/L (136-145)
[2021-05-12] MEDS: HumaLOG 300 UNITS/3 ML VIAL SC PRN ×3 (06:09→17:27)
[2021-05-12] MEDS: Cholecalciferol (Vitamin D3) 400 UNITS TAB PO SCH (08:13)
[2021-05-12] MEDS: guaiFENesin ER 600 MG TAB PO SCH ×2 (08:13→20:13)
[2021-05-12] MEDS: Ascorbic Acid 500 mg Chewable Tablet PO SCH (08:13)
[2021-05-12] MEDS: Aspirin 81 mg Enteric Coated Tablet PO SCH (08:13)
[2021-05-12] MEDS: Zinc Sulfate 220 MG CAP PO SCH (08:14)
[2021-05-12] MEDS: Heparin 5,000 UNITS/ML VIAL SC SCH ×3 (08:15→20:15)
[2021-05-12] MEDS: Sodium Chloride 0.45% 1,000 ML IV SCH ×3 (08:30→23:27)
[2021-05-12 08:32] LABS: Glucose 498 mg/dL (83-110)
[2021-05-12] MEDS ORDERED: Dexamethasone 10 MG/ML VIAL SLOW IVP SCH (09:00)
[2021-05-12 12:29] LABS: Glucose 453 mg/dL (83-110)
[2021-05-12 14:44] LABS: Bacteria/HPF 4+ HPF (None Seen); Bilirubin Negative (Negative); Blood, Urine 2+ (Negative); Clarity Turbid (Clear); Glucose, Urine (Dipstick) 500 mg/dL (Negative); Ketone, Urine Negative (Negative); Leukocyte 500 Leu/uL (Negative); Nitrite Negative (Negative); Protein, Urine (Dipstick) 300 mg/dL (Neg-Trace); Specific Gravity, Urine 1.016 (1.002-1.036); Squamous Epithelial 0-3 HPF (0-3); Urobilinogen Normal mg/dL (Less than 2); WBC/HPF Greater than 50 HPF (0-3)
[2021-05-12 14:55] LABS: Urine Culture Reflex Yes Yes
[2021-05-12 15:13] LABS: Creatinine, Urine 146.81 mg/dL (47-110)
[2021-05-12 17:29] LABS: Glucose 440 mg/dL (83-110)
[2021-05-12] MEDS: Atorvastatin Calcium 40 MG TAB PO SCH (20:13)
[2021-05-12 21:27] LABS: Glucose 211 mg/dL (83-110)
[2021-05-13] MEDS: HumaLOG 300 UNITS/3 ML VIAL SC PRN ×3 (06:00→16:19)
[2021-05-13 08:02] LABS: Hemoglobin 8.9 g/dL (12.0-16.0); Mean Corpuscular HGB CONC 30.6 g/dL (32.0-36.0); Platelet Count 215 thou/uL (130-400); RBC Distribution Width 13.5 % (11.5-14.5); Red Blood Cell (RBC) Count 3.31 mill/uL (4.20-5.40); White Blood Cell (WBC) Count 11.7 thou/uL (4.8-10.8)
[2021-05-13 08:21] LABS: Albumin 2.4 g/dL (3.4-4.8); Anion Gap 12 mmol/L (10-20); BUN (Urea Nitrogen) 44 mg/dL (9.8-20.1); BUN/Creatinine Ratio 14.43; Calc. Creatinine Clearance 18 mL/min (70-130); Calcium 8.2 mg/dL (7.8-10.44); Carbon Dioxide 21 mmol/L (23-31); Chloride 109 mmol/L (98-107); Glucose 268 mg/dL (83-110); Potassium 3.9 mmol/L (3.5-5.1); Sodium 138 mmol/L (136-145)
[2021-05-13] MEDS: Cholecalciferol (Vitamin D3) 400 UNITS TAB PO SCH (08:39)
[2021-05-13] MEDS: Ascorbic Acid 500 mg Chewable Tablet PO SCH (08:39)
[2021-05-13] MEDS: Aspirin 81 mg Enteric Coated Tablet PO SCH (08:39)
[2021-05-13] MEDS: Zinc Sulfate 220 MG CAP PO SCH (08:39)
[2021-05-13] MEDS: guaiFENesin ER 600 MG TAB PO SCH ×2 (08:39→21:16)
[2021-05-13] MEDS: Heparin 5,000 UNITS/ML VIAL SC SCH ×3 (08:40→21:17)
[2021-05-13] MEDS: Sodium Chloride 0.45% 1,000 ML IV SCH (08:40)
[2021-05-13] MEDS: Amlodipine 5 MG TAB PO SCH (10:05)
[2021-05-13] MEDS: Lantus 1000 UNITS/10 ML VIAL SC SCH (10:06)
[2021-05-13] MEDS: Gabapentin 300 MG CAP PO SCH (10:06)
[2021-05-13] MEDS: Clopidogrel Bisulfate 75 MG TAB PO SCH (10:06)
[2021-05-13] MEDS: Dexamethasone 4 mg/ml Vial SLOW IVP SCH (10:07)
[2021-05-13 11:53] LABS: Glucose 244 mg/dL (83-110)
[2021-05-13] MEDS: Sodium Bicarbonate 75 MEQ in Sterile Water Injection 1,000 ML IV SCH (15:06)
[2021-05-13 17:48] LABS: Glucose 177 mg/dL (83-110)
[2021-05-13] MEDS: Atorvastatin Calcium 40 MG TAB PO SCH (21:16)
[2021-05-13 21:25] LABS: Glucose 171 mg/dL (83-110)
[2021-05-14] MEDS: Sodium Bicarbonate 75 MEQ in Sterile Water Injection 1,000 ML IV SCH (01:54)
[2021-05-14 05:26] LABS: Albumin 2.5 g/dL (3.4-4.8); Anion Gap 16 mmol/L (10-20); BUN (Urea Nitrogen) 41 mg/dL (9.8-20.1); BUN/Creatinine Ratio 15.65; Calc. Creatinine Clearance 21 mL/min (70-130); Calcium 8.1 mg/dL (7.8-10.44); Carbon Dioxide 18 mmol/L (23-31); Chloride 106 mmol/L (98-107); Glucose 202 mg/dL (83-110); Phosphorus 2.5 mg/dL (2.3-4.7); Potassium 3.8 mmol/L (3.5-5.1); Sodium 136 mmol/L (136-145)
[2021-05-14] MEDS: HumaLOG 300 UNITS/3 ML VIAL SC PRN (07:17)
[2021-05-14 07:47] LABS: Glucose 204 mg/dL (83-110)
[2021-05-14] MEDS: Heparin 5,000 UNITS/ML VIAL SC SCH ×3 (08:12→20:59)
[2021-05-14] MEDS: Dexamethasone 4 mg/ml Vial SLOW IVP SCH (08:12)
[2021-05-14] MEDS: Amlodipine 5 MG TAB PO SCH (08:13)
[2021-05-14] MEDS: Ascorbic Acid 500 mg Chewable Tablet PO SCH (08:13)
[2021-05-14] MEDS: Cholecalciferol (Vitamin D3) 400 UNITS TAB PO SCH (08:14)
[2021-05-14] MEDS: Zinc Sulfate 220 MG CAP PO SCH (08:14)
[2021-05-14] MEDS: Gabapentin 300 MG CAP PO SCH (08:14)
[2021-05-14] MEDS: guaiFENesin ER 600 MG TAB PO SCH ×2 (08:14→21:02)
[2021-05-14] MEDS: Aspirin 81 mg Enteric Coated Tablet PO SCH (08:14)
[2021-05-14] MEDS: Clopidogrel Bisulfate 75 MG TAB PO SCH (08:14)
[2021-05-14] MEDS: Lantus 1000 UNITS/10 ML VIAL SC SCH (08:15)
[2021-05-14 11:48] LABS: Glucose 163 mg/dL (83-110)
[2021-05-14] MEDS: STERILE WATER IV SCH ×2 (12:22→23:41)
[2021-05-14] MEDS: SODIUM BICARBONATE IV SCH ×2 (12:22→23:41)
[2021-05-14 17:34] LABS: Glucose 174 mg/dL (83-110)
[2021-05-14] MEDS ORDERED: Ketorolac Tromethamine 30 MG/ML VIAL IVP SCH (18:45)
[2021-05-14] MEDS: Atorvastatin Calcium 40 MG TAB PO SCH (21:01)
[2021-05-14 21:23] LABS: Glucose 182 mg/dL (83-110)
[2021-05-15] MEDS ORDERED: Lorazepam 2 MG/ML VIAL SLOW IVP SCH (01:45)
[2021-05-15 05:19] LABS: Albumin 2.4 g/dL (3.4-4.8); Anion Gap 14 mmol/L (10-20); BUN (Urea Nitrogen) 35 mg/dL (9.8-20.1); BUN/Creatinine Ratio 15.35; Calc. Creatinine Clearance 24 mL/min (70-130); Carbon Dioxide 27 mmol/L (23-31); Chloride 103 mmol/L (98-107); Glucose 177 mg/dL (83-110); Phosphorus 1.9 mg/dL (2.3-4.7); Potassium 3.1 mmol/L (3.5-5.1); Sodium 141 mmol/L (136-145)
[2021-05-15] MEDS: Labetalol HCl 100 MG/20 ML VIAL SLOW IVP PRN ×3 (06:29→23:11)
[2021-05-15] MEDS: HumaLOG 300 UNITS/3 ML VIAL SC PRN ×2 (06:52→14:03)
[2021-05-15] MEDS ORDERED: Potassium Phosphate 30 MMOL in Sodium Chloride 0.9% 250 ML 250 ML IVPB SCH (08:00)
[2021-05-15] MEDS: Heparin 5,000 UNITS/ML VIAL SC SCH ×3 (08:50→19:42)
[2021-05-15] MEDS: Dexamethasone 4 mg/ml Vial SLOW IVP SCH (08:50)
[2021-05-15] MEDS ORDERED: cloNIDine 0.1mg/24 Hour PATCH TD SCH (09:00)
[2021-05-15 09:30] VITALS: BMI 34.4
[2021-05-15] MEDS: Amlodipine 5 MG TAB PO SCH (10:08)
[2021-05-15] MEDS: Ascorbic Acid 500 mg Chewable Tablet PO SCH (10:08)
[2021-05-15] MEDS: Aspirin 81 mg Enteric Coated Tablet PO SCH (10:08)
[2021-05-15] MEDS: Cholecalciferol (Vitamin D3) 400 UNITS TAB PO SCH (10:08)
[2021-05-15] MEDS: Gabapentin 300 MG CAP PO SCH (10:09)
[2021-05-15] MEDS: guaiFENesin ER 600 MG TAB PO SCH ×2 (10:09→19:42)
[2021-05-15] MEDS: Clopidogrel Bisulfate 75 MG TAB PO SCH (10:09)
[2021-05-15] MEDS: Zinc Sulfate 220 MG CAP PO SCH (10:10)
[2021-05-15 10:17] LABS: Glucose 142 mg/dL (83-110)
[2021-05-15] MEDS: Lantus 1000 UNITS/10 ML VIAL SC SCH (10:23)
[2021-05-15] MEDS ORDERED: hydrALAZINE 20 MG/ML VIAL SLOW IVP PRN (13:18)
[2021-05-15 13:38] LABS: Glucose 154 mg/dL (83-110)
[2021-05-15] MEDS ORDERED: cloNIDine 0.2mg/24 Hour PATCH TD SCH (13:45)
[2021-05-15] MEDS: STERILE WATER IV SCH (15:28)
[2021-05-15] MEDS: SODIUM BICARBONATE IV SCH (15:28)
[2021-05-15 17:25] LABS: Glucose 118 mg/dL (83-110)
[2021-05-15] MEDS: Atorvastatin Calcium 40 MG TAB PO SCH (19:42)
[2021-05-15] MEDS: Fentanyl 100 MCG/2 ML VIAL SLOW IVP PRN (23:08)
[2021-05-16] MEDS: SODIUM BICARBONATE IV SCH (04:02)
[2021-05-16] MEDS: STERILE WATER IV SCH (04:02)
[2021-05-16] MEDS: Labetalol HCl 100 MG/20 ML VIAL SLOW IVP PRN ×3 (04:34→12:21)
[2021-05-16] MEDS: Fentanyl 100 MCG/2 ML VIAL SLOW IVP PRN (05:24)
[2021-05-16 05:35] LABS: Albumin 2.4 g/dL (3.4-4.8); Anion Gap 14 mmol/L (10-20); BUN (Urea Nitrogen) 32 mg/dL (9.8-20.1); BUN/Creatinine Ratio 14.88; Calc. Creatinine Clearance 25 mL/min (70-130); Calcium 7.5 mg/dL (7.8-10.44); Carbon Dioxide 31 mmol/L (23-31); Chloride 102 mmol/L (98-107); Glucose 216 mg/dL (83-110); Phosphorus 2.4 mg/dL (2.3-4.7); Potassium 3.2 mmol/L (3.5-5.1); Sodium 144 mmol/L (136-145)
[2021-05-16] MEDS: HumaLOG 300 UNITS/3 ML VIAL SC PRN ×3 (06:06→17:51)
[2021-05-16 07:48] LABS: Magnesium 1.5 mg/dL (1.6-2.6)
[2021-05-16] MEDS ORDERED: Magnesium Sulfate 4 GM in Sodium Chloride 0.9% 250 ML 250 ML IVPB SCH (09:00)
[2021-05-16] MEDS: Dexamethasone 4 mg/ml Vial SLOW IVP SCH (09:27)
[2021-05-16] MEDS: Clopidogrel Bisulfate 75 MG TAB PO SCH (09:27)
[2021-05-16] MEDS: Gabapentin 300 MG CAP PO SCH (09:27)
[2021-05-16] MEDS: Cholecalciferol (Vitamin D3) 400 UNITS TAB PO SCH (09:28)
[2021-05-16] MEDS: Amlodipine 5 MG TAB PO SCH (09:28)
[2021-05-16] MEDS: Ascorbic Acid 500 mg Chewable Tablet PO SCH (09:28)
[2021-05-16] MEDS: Aspirin 81 mg Enteric Coated Tablet PO SCH (09:28)
[2021-05-16] MEDS: Zinc Sulfate 220 MG CAP PO SCH (09:28)
[2021-05-16] MEDS: Heparin 5,000 UNITS/ML VIAL SC SCH (09:29)
[2021-05-16] MEDS: guaiFENesin ER 600 MG TAB PO SCH ×2 (09:30→19:13)
[2021-05-16] MEDS: Lantus 1000 UNITS/10 ML VIAL SC SCH (09:31)
[2021-05-16] MEDS: Potassium Chloride 20 MEQ in Premix Bag 1 BAG IVPB SCH ×2 (09:43→11:22)
[2021-05-16] MEDS ORDERED: Diltiazem HCl SR 60 mg Capsule PO SCH (13:30)
[2021-05-16] MEDS ORDERED: Amlodipine 5 MG TAB PER TUBE SCH (14:30)
[2021-05-16] MEDS ORDERED: Diltiazem 125 MG in Sodium Chloride 0.9% 100 ML IVPB SCH (15:45)
[2021-05-16] MEDS ORDERED: Diltiazem HCl SR 90 mg Capsule PO SCH (21:00)
[2021-05-16] MEDS: Atorvastatin Calcium 40 MG TAB PO SCH (21:12)
[2021-05-16] MEDS: Apixaban 2.5 MG TAB PO SCH (21:12)
[2021-05-16] MEDS: Diltiazem 125 MG in Sodium Chloride 0.9% 100 ML IVPB SCH (23:55)
[2021-05-17] MEDS: Labetalol HCl 100 MG/20 ML VIAL SLOW IVP PRN ×2 (01:13→09:58)
[2021-05-17] MEDS: HumaLOG 300 UNITS/3 ML VIAL SC PRN ×4 (01:13→17:17)
[2021-05-17 05:29] LABS: Albumin 2.4 g/dL (3.4-4.8); Anion Gap 12 mmol/L (10-20); BUN (Urea Nitrogen) 32 mg/dL (9.8-20.1); BUN/Creatinine Ratio 15.31; Calc. Creatinine Clearance 26 mL/min (70-130); Calcium 7.6 mg/dL (7.8-10.44); Carbon Dioxide 33 mmol/L (23-31); Chloride 102 mmol/L (98-107); Glucose 312 mg/dL (83-110); Phosphorus 2.1 mg/dL (2.3-4.7); Potassium 3.6 mmol/L (3.5-5.1); Sodium 143 mmol/L (136-145)
[2021-05-17] MEDS ORDERED: Amlodipine 5 MG TAB PER TUBE SCH (09:00)
[2021-05-17] MEDS: Lantus 1000 UNITS/10 ML VIAL SC SCH (09:18)
[2021-05-17] MEDS: Ascorbic Acid 500 mg Chewable Tablet PO SCH (09:21)
[2021-05-17] MEDS: Gabapentin 300 MG CAP PO SCH (09:21)
[2021-05-17] MEDS: Cholecalciferol (Vitamin D3) 400 UNITS TAB PO SCH (09:22)
[2021-05-17] MEDS: Aspirin 81 mg Enteric Coated Tablet PO SCH (09:22)
[2021-05-17] MEDS: Clopidogrel Bisulfate 75 MG TAB PO SCH (09:22)
[2021-05-17] MEDS: Zinc Sulfate 220 MG CAP PO SCH (09:22)
[2021-05-17] MEDS: Dexamethasone 4 mg/ml Vial SLOW IVP SCH (09:22)
[2021-05-17] MEDS: guaiFENesin ER 600 MG TAB PO SCH ×2 (09:25→22:50)
[2021-05-17] MEDS: Apixaban 2.5 MG TAB PO SCH ×2 (09:33→22:54)
[2021-05-17] MEDS: Diltiazem 125 MG in Sodium Chloride 0.9% 100 ML IVPB SCH (09:42)
[2021-05-17] MEDS: Albumin 25% 25 GM/100 ML BOT IVPB SCH ×2 (13:27→17:17)
[2021-05-17 16:24] VITALS: BP 159/60; TEMP 98
[2021-05-17 17:37] LABS: Actual Bicarbonate (HCO3a) 33.1 mEq/L (22-28); Base Excess (BEa) 8.5 mEq/L (-2.0 to +3.0); Calcium, Ionized (arterial) 1.03 mmol/L (1.12-1.30); Carboxyhemoglobin (COHb) 0.3 gm% (0.0-3.0); Hemoglobin (Hb) 8.6 g/dL (12.0-16.0); Potassium - ABG Lab 3.92 mmol/L (3.70-5.30); pH, Arterial 7.47 (7.35-7.45)
[2021-05-17 17:40] LABS: O2 Tension (PaO2), arterial 55.9 mmHg (> 60.0)
[2021-05-17 17:41] LABS: Puncture Site RBA
[2021-05-17] MEDS ORDERED: PROPOFOL 200 MG/20 ML VIAL ONE (18:50)
[2021-05-17] MEDS ORDERED: Succinylcholine 200 MG/10 ml SYRINGE FS ONE (18:50)
[2021-05-17] MEDS ORDERED: Lorazepam 2 MG/ML VIAL ONE ×2 (19:22)
[2021-05-17 19:27] LABS: Actual Bicarbonate (HCO3a) 30.9 mEq/L (22-28); Base Excess (BEa) 5.6 mEq/L (-2.0 to +3.0); CO2 Tension 50.1 mmHg (35.0-45.0); Calcium, Ionized (arterial) 1.03 mmol/L (1.12-1.30); Carboxyhemoglobin (COHb) 0.1 gm% (0.0-3.0); Hemoglobin (Hb) 7.6 g/dL (12.0-16.0); Potassium - ABG Lab 3.99 mmol/L (3.70-5.30); pH, Arterial 7.41 (7.35-7.45)
[2021-05-17 19:30] LABS: O2 Tension (PaO2), arterial 36.3 mmHg (> 60.0)
[2021-05-17 19:31] LABS: ALV-art Gradient 614.075 mmHg (0-20); Puncture Site LRA
[2021-05-17] MEDS ORDERED: Norepinephrine 8 MG/0.9% NS 250 ML ONE (19:47)
[2021-05-17] MEDS ORDERED: Ventilator Sedation Protocol 1 EACH FS SCH (21:00)
[2021-05-17 21:20] LABS: Actual Bicarbonate (HCO3a) 32.4 mEq/L (22-28); Calcium, Ionized (arterial) 1.02 mmol/L (1.12-1.30); Carboxyhemoglobin (COHb) 0.4 gm% (0.0-3.0); Hemoglobin (Hb) 7.9 g/dL (12.0-16.0); Potassium - ABG Lab 3.58 mmol/L (3.70-5.30); pH, Arterial 7.48 (7.35-7.45)
[2021-05-17] MEDS ORDERED: Lorazepam 2 MG/ML VIAL SLOW IVP PRN (22:00)
[2021-05-17] MEDS ORDERED: Cefepime 0.5 GM, Admixture Fee 1 EACH in Sodium Chloride 0.9% 100 ML IVPB SCH (22:00)
[2021-05-17] MEDS ORDERED: Morphine 2 MG/ML VIAL SLOW IVP PRN (22:00)
[2021-05-17] MEDS ORDERED: Fentanyl BOLUS 250 ML IVPB PRN (22:00)
[2021-05-17] MEDS ORDERED: Norepinephrine 8 MG/0.9% NS 250 ML IVPB SCH (22:00)
[2021-05-17] MEDS ORDERED: Fentanyl CADD 100 ML IV SCH (22:00)
[2021-05-17] MEDS ORDERED: DISCONTINUE PREVIOUS NARCOTIC PAIN MEDICATIONS AND BENZODIAZEPINES FS SCH (22:00)
[2021-05-17] MEDS ORDERED: Propofol 1,000 MG/100 ML VIAL IV PRN (22:00)
[2021-05-17] MEDS ORDERED: Propofol BOLUS 1,000 MG/100 ML VIAL IV PRN (22:00)
[2021-05-17 22:03] LABS: O2 Tension (PaO2), arterial 40.5 mmHg (> 60.0); Puncture Site RRA
[2021-05-17] MEDS: Atorvastatin Calcium 40 MG TAB PO SCH (22:54)
[2021-05-22] MEDS ORDERED: cloNIDine 0.1mg/24 Hour PATCH TD SCH (09:00)
[2021-05-22] MEDS ORDERED: cloNIDine 0.2mg/24 Hour PATCH TD SCH (09:00)
== END 2021-05-17 22:20 | disposition expired | DRG 208 ==
LOC: ERS 13:53 → 2SE 17:29 → CCU 05-17 18:35
PROVIDERS: ADMIT Family Medicine; ATTEND Internal Medicine
PROC: 5A09557 Assistance with Respiratory Ventilation, Greater than 96 Consecutive Hours, Continuous Positive Airway Pressure (ICD-10-PCS; principal; 2021-05-11)
PROC: 8E0ZXY6 Isolation (ICD-10-PCS; 2021-05-11)
PROC: 5A0935A Assistance with Respiratory Ventilation, Less than 24 Consecutive Hours, High Flow/Velocity Cannula (ICD-10-PCS; 2021-05-11)
PROC: 3E0333Z Introduction of Anti-inflammatory into Peripheral Vein, Percutaneous Approach (ICD-10-PCS; 2021-05-13)
PROC: 0DH67UZ Insertion of Feeding Device into Stomach, Via Natural or Artificial Opening (ICD-10-PCS; 2021-05-15)
PROC: 5A1935Z Respiratory Ventilation, Less than 24 Consecutive Hours (ICD-10-PCS; 2021-05-17)
PROC: 3E033XZ Introduction of Vasopressor into Peripheral Vein, Percutaneous Approach (ICD-10-PCS; 2021-05-17)
PROC: 0BH17EZ Insertion of Endotracheal Airway into Trachea, Via Natural or Artificial Opening (ICD-10-PCS; 2021-05-17)
DX: U07.1 COVID-19 (principal); J12.82 Pneumonia due to coronavirus disease 2019; J96.01 Acute respiratory failure with hypoxia; N17.9 Acute kidney failure, unspecified; E87.0 Hyperosmolality and hypernatremia; G93.49 Other encephalopathy; I13.0 Hypertensive heart and chronic kidney disease with heart failure and stage 1 through stage 4 chronic kidney disease, or unspecified chronic kidney disease; I50.32 Chronic diastolic (congestive) heart failure; F33.9 Major depressive disorder, recurrent, unspecified; I47.1 Supraventricular tachycardia; Z66 Do not resuscitate; I25.10 Atherosclerotic heart disease of native coronary artery without angina pectoris; R78.89 Finding of other specified substances, not normally found in blood; N18.9 Chronic kidney disease, unspecified; E11.65 Type 2 diabetes mellitus with hyperglycemia; E78.2 Mixed hyperlipidemia; D63.1 Anemia in chronic kidney disease; E11.22 Type 2 diabetes mellitus with diabetic chronic kidney disease; H53.8 Other visual disturbances; R20.0 Anesthesia of skin; T50.1X5A Adverse effect of loop [high-ceiling] diuretics, initial encounter; T46.4X5A Adverse effect of angiotensin-converting-enzyme inhibitors, initial encounter; I48.91 Unspecified atrial fibrillation; E86.9 Volume depletion, unspecified; E83.39 Other disorders of phosphorus metabolism; E87.6 Hypokalemia; I16.0 Hypertensive urgency; I69.398 Other sequelae of cerebral infarction; Z78.1 Physical restraint status; I25.2 Old myocardial infarction; Z95.1 Presence of aortocoronary bypass graft; Z90.49 Acquired absence of other specified parts of digestive tract; Z90.710 Acquired absence of both cervix and uterus; Z87.891 Personal history of nicotine dependence; Z88.5 Allergy status to narcotic agent; Z79.899 Other long term (current) drug therapy; Z79.82 Long term (current) use of aspirin; Z79.02 Long term (current) use of antithrombotics/antiplatelets; Z79.4 Long term (current) use of insulin; Z86.718 Personal history of other venous thrombosis and embolism; Z86.011 Personal history of benign neoplasm of the brain; Z98.890 Other specified postprocedural states
CPT/HCPCS: 0240U; 36415; 36416; 36600; 71045; 74018; 76770; 80048; 80053; 80069; 81001; 82550; 82553; 82570; 82728; 82805; 82947; 83605; 83735; 84145; 84156; 84300; 84484; 84540; 85025; 85027; 85379; 86140; 87040; 87077; 87086; 87186; 93005; 93010; 94002; 94660; 96374; A4217; J0360; J1100; J1644; J1815; J1885; J2060; J2704; J3010; J3475; J3480; J3490; J7042; J7050; P9047